=== PATIENT | male | born 1935 | race Caucasian/White ===

== ENCOUNTER → 2017-07-06 06:46 | Outpatient (CLI) | payer MEDICARE, SELFPAY ==
--- NOTE | 2017-07-06 10:18 | STRESSREP ---
Stress Test Report Date: 07/06/2017 Procedure: Pharmacologic stress nuclear imaging study Indications: CAD; status post CABG Consent: Per the patient Procedure: The patient underwent pharmacologic (Regadenoson (evaluation with a peak heart rate of 88 bpm (62% predicted maximal heart rate) with a peak blood pressure 128/70 mmHg. The baseline ECG demonstrated sinus bradycardia with nonspecific ST and T-wave abnormality. The peak pharmacologic ECG demonstrated no obvious ECG changes. There were no cardiac dysrhythmias pretest, during pharmacologic infusion, or recovery. The patient had no complaint of chest discomfort during pharmacologic infusion or recovery. The examination was discontinued secondary to completion of protocol. Impression: 1. Pharmacologic (Regadenoson) evaluation 2. Peak pharmacologic ECG with continued nonspecific ST and T-wave abnormality. 3. Nuclear images pending Myocardial perfusion imaging study: Technique: The patient was injected with 11.0 millicuries of technetium 99m Cardiolite and subsequently rest SPECT Cardiolite nuclear imaging was obtained in the horizontal long, vertical long, and short axis views. The patient underwent pharmacologic (Regadenoson (evaluation with a peak heart rate of 88 bpm (62% predicted maximal heart rate) with a peak blood pressure 128/70 mmHg. The patient was injected with 34.0 millicuries of technetium 99m Cardiolite and subsequently stress SPECT Cardiolite nuclear imaging was obtained in the horizontal long, vertical long, and short axis views. A gated Cardiolite study at peak stress was obtained. Interpretation: Rest and stress SPECT Cardiolite nuclear imaging status post realignment, normalization, and attenuation correction, demonstrates the appearance of extracardiac/hepatic and gastrointestinal tracer uptake near the inferior segments. Otherwise there appears to be relative uniform tracer uptake and myocardial perfusion appearing within normal limits. There is end systolic thickening and brightening. The gated Cardiolite study demonstrates myocardial thickening and inward wall motion. The reported LVEF is 71%. Impression: 1. Rest and stress SPECT Cardiolite nuclear imaging demonstrating relative uniform tracer uptake and myocardial perfusion appearing within normal limits. 2. The gated Cardiolite study reports an LVEF of 71%. This note was generated with [employer] software. Every effort was made to ensure accuracy, however, computerized eradicator mistakes may persist.
--- NOTE | 2017-07-06 10:28 | STRESSREP_ITS ---
Stress Test Report Date: 07/06/2017 Procedure: Pharmacologic stress nuclear imaging study Indications: CAD; status post CABG Consent: Per the patient Procedure: The patient underwent pharmacologic (Regadenoson (evaluation with a peak heart rate of 88 bpm (62% predicted maximal heart rate) with a peak blood pressure 128 /70 mmHg. The baseline ECG demonstrated sinus bradycardia with nonspecific ST and T-wave abnormality. The peak pharmacologic ECG demonstrated no obvious ECG changes. There were no cardiac dysrhythmias pretest, during pharmacologic infusion, or recovery. The patient had no complaint of chest discomfort during pharmacologic infusion or recovery. The examination was discontinued secondary to completion of protocol. Impression: 1. Pharmacologic (Regadenoson) evaluation 2. Peak pharmacologic ECG with continued nonspecific ST and T-wave abnormality. 3. Nuclear images pending Myocardial perfusion imaging study: Technique: The patient was injected with 11.0 millicuries of technetium 99m Cardiolite and subsequently rest SPECT Cardiolite nuclear imaging was obtained in the horizontal long, vertical long, and short axis views. The patient underwent pharmacologic (Regadenoson (evaluation with a peak heart rate of 88 bpm (62% predicted maximal heart rate) with a peak blood pressure 128/70 mmHg. The patient was injected with 34.0 millicuries of technetium 99m Cardiolite and subsequently stress SPECT Cardiolite nuclear imaging was obtained in the horizontal long, vertical long, and short axis views. A gated Cardiolite study at peak stress was obtained. Interpretation: Rest and stress SPECT Cardiolite nuclear imaging status post realignment, normalization, and attenuation correction, demonstrates the appearance of extracardiac/hepatic and gastrointestinal tracer uptake near the inferior segments. Otherwise there appears to be relative uniform tracer uptake and myocardial perfusion appearing within normal limits. There is end systolic thickening and brightening. The gated Cardiolite study demonstrates myocardial thickening and inward wall motion. The reported LVEF is 71%. Impression: 1. Rest and stress SPECT Cardiolite nuclear imaging demonstrating relative uniform tracer uptake and myocardial perfusion appearing within normal limits. 2. The gated Cardiolite study reports an LVEF of 71%. This note was generated with [employer] software. Every effort was made to ensure accuracy, however, computerized manufacturing production manager mistakes may persist.
== END ==
PROVIDERS: Family Provider Family Medicine; PCP Family Medicine; Visit Provider Physician Assistant Medical
DX: I25.10 Atherosclerotic heart disease of native coronary artery without angina pectoris (principal)
CPT/HCPCS: 78452; 93017; A9500; A4216; J2785

== ENCOUNTER → 2017-10-04 08:11 | Outpatient (CLI) | payer MEDICARE, SELFPAY ==
[2017-10-04 09:53] LABS: Absolute Lymphocyte Count 1.52 X10^3/ul (0.83-4.51); Absolute Neutrophil Count 3.3 X10^3/uL (2.0-7.7); Basophil# 0.07 X10^3/uL; Basophil% 1.3 % (0-1); Eosinophil# 0.25 X10^3/uL; Eosinophils% 4.5 % (0-5); Hematocrit 45.5 % (40-54); Hemoglobin 15.2 g/dl (13.0-16.5); Lymphocyte # 1.52 X10^3/ul (4.0); Lymphocyte % 27.6 % (19-41); Mean Corp Hgb Conc 33.4 g/gl (32-36); Mean Corpuscular Hgb 30.6 pg (27.0-32.0); Mean Corpuscular Volume 91.5 fL (80-94); Monocyte# 0.39 X10^3/uL; Monocyte% 7.1 % (0-10); Neutrophil # 3.27 X10^3/uL (2.7-7.7); Neutrophil % 59.5 % (47-70); Platelet Count 189 K/mm3 (150-450); RBC Distribution Width CV 13.6 % (11.6-14.6); RBC Distribution Width SD 44.9 fl (35.1-43.9); Red Blood Count 4.97 M/mm3 (4.6-6.2); White Blood Count 5.5 K/mm3 (4.4-11.0)
[2017-10-04 10:14] LABS: Anion Gap 7 (5-15); BUN 16 mg/dL (7-18); BUN/Creat Ratio 12.3 RATIO (10-20); Calcium,Total 8.6 mg/dL (8.5-10.1); Chloride 107 mmol/L (98-107); EST Glomerular Filtration Rate 56 mL/min (>60); Est Glom Filt Rate - Afr Amer 68 mL/min (>60); Glucose 97 mg/dL (74-106); POSITIVE COUNT NO; POSITIVE DIFFERENTIAL NO; POSITIVE MORPHOLOGY NO; Sodium Level 143 mmol/L (136-145)
[2017-10-04 10:16] LABS: AST(SGOT) 13 U/L (15-37); Alanine Aminotransfer ALT/SGPT 18 U/L (16-61); Albumin, Serum 3.5 g/dL (3.2-5.0); Alkaline Phosphatase 53 U/L (45-117); Bilirubin, Direct 0.09 mg/dL (0.00-0.30); Cholesterol 143 mg/dL (200); Globulin 3.1 g/dL (2.2-4.2); High Density Lipoprotein 51 mg/dL; Protein, Total 6.6 g/dL (6.4-8.2); Triglycerides 131 mg/dL; Very Low Density Lipoprotein 26 mg/dL (5-40)
== END ==
PROVIDERS: Internal Medicine Cardiovascular Disease; Family Provider Family Medicine; PCP Family Medicine; Visit Provider Family Medicine
DX: I25.10 Atherosclerotic heart disease of native coronary artery without angina pectoris (principal); I10 Essential (primary) hypertension; R25.2 Cramp and spasm; E78.5 Hyperlipidemia, unspecified; Z79.899 Other long term (current) drug therapy
CPT/HCPCS: 36415; 80048; 80061; 80076; 85025

== ENCOUNTER → 2018-04-05 08:22 | Outpatient (CLI) | payer MEDICARE, SELFPAY ==
[2018-04-05 10:44] LABS: AST(SGOT) 14 U/L (15-37); Alanine Aminotransfer ALT/SGPT 21 U/L (16-61); Albumin, Serum 3.4 g/dL (3.2-5.0); Alkaline Phosphatase 54 U/L (45-117); Bilirubin, Direct 0.07 mg/dL (0.00-0.30); Cholesterol 146 mg/dL (200); Globulin 3.2 g/dL (2.2-4.2); High Density Lipoprotein 52 mg/dL; Protein, Total 6.6 g/dL (6.4-8.2); Triglycerides 94 mg/dL; Very Low Density Lipoprotein 19 mg/dL (5-40)
== END ==
PROVIDERS: Family Provider Family Medicine; PCP Family Medicine; Referring Provider Internal Medicine Cardiovascular Disease; Visit Provider Internal Medicine Cardiovascular Disease
DX: E78.5 Hyperlipidemia, unspecified (principal); E78.00 Pure hypercholesterolemia, unspecified
CPT/HCPCS: 36415; 80061; 80076

== ENCOUNTER → 2018-04-07 07:46 | Outpatient (CLI) | payer MEDICARE, SELFPAY ==
--- NOTE | 2018-04-07 07:48 | ECHOCS_ITS ---
Reason For Study: CAD/ASJD Procedure This was a 2D Doppler, Color Flow transthoracic echocardiogram. The study was technically difficult. Contrast injection was performed. Exam performed in department. Left Ventricle Normal LV size. Left ventricular systolic function is normal. The estimated ejection fraction is 65 %. No evidence for diastolic dysfunction. No regional wall motion abnormalities noted. Right Ventricle Normal RV size. Normal systolic function. Atria The left atrium is mildly enlarged. Normal right atrium. Positive agitated saline contrast study for a right to left interatrial shunt c/w a PFO vs. ASD. Mitral Valve There is mild mitral annular calcification. Normal mitral valve. Mild (1+) mitral valve insufficiency. Tricuspid Valve Normal tricuspid valve. Mild tricuspid valve insufficiency. Right ventricular systolic pressure estimated to be 23 mmHg. Aortic Valve Trisinus/trileaflet aortic valve. Moderate focal aortic valve calcification. Trivial aortic valve insufficiency. Pulmonic Valve The pulmonic valve is not well visualized. Trivial pulmonic valve insufficiency. Great Vessels Normal sized aortic root. Pericardium/Pleural No pericardial effusion. Medication 22 gauge I.V. with prn adaptor inserted into right arm. Performed a rapid injection of agitated mix of 9 cc saline and 1cc air to assess for atrial septal defect. Diluted definity 2.0ml given slow IV push to enhance endocardial definition. MMode/2D Measurements & Calculations LVIDd: 4.0 cm IVSd: 1.5 cm LVOT diam: 2.5 cm LVIDs: 2.7 cm LVPWd: 1.2 cm LVOT area: 5.1 cm2 RVDd: 3.9 cm FS: 31.6 % Ao root diam: 3.5 cm LAV(MOD-bp): 67.7 ml LA A4 area: 21.5 cm2 LAV(MOD-bp) Indexed: 32.0 ml/m2 LAV(MOD-sp2): 69.6 ml LAV(MOD-sp4): 64.7 ml LA dimension(2D): 4.1 cm RA A4 area: 16.0 cm2 Time Measurements MV dec time: 0.26 sec Doppler Measurements & Calculations MV E max misbah: 62.6 cm/sec Lat Peak E' Misbah: 8.9 cm/sec Med Peak E' Misbah: 6.4 cm/sec MV A max misbah: 106.3 cm/sec E/E' lat: 7.0 E/E' med: 9.8 MV E/A: 0.59 Ao V2 max: 211.0 cm/sec LV V1 max: 111.0 cm/sec SV(LVOT): 113.5 ml Ao max P.8 mmHg LV V1 max P.9 mmHg Ao V2 mean: 133.2 cm/sec LV V1 mean P.7 mmHg Ao mean P.1 mmHg LV V1 mean: 78.3 cm/sec Ao V2 VTI: 38.5 cm LV V1 VTI: 22.4 cm PAOLO(I,D): 2.9 cm2 PAOLO(V,D): 2.7 cm2 PA V2 max: 112.8 cm/sec PI end-d misbah: 111.9 cm/sec TR max misbah: 222.9 cm/sec TR max P.9 mmHg Interpretation Summary The study was technically difficult. Contrast injection was performed. Left ventricular systolic function is normal. The estimated ejection fraction is 65 %. The left atrium is mildly enlarged. There is mild mitral annular calcification. Mild (1+) mitral valve insufficiency. Mild tricuspid valve insufficiency. Moderate focal aortic valve calcification. Trivial aortic valve insufficiency. Trivial pulmonic valve insufficiency. Right ventricular systolic pressure estimated to be 23 mmHg. No evidence for diastolic dysfunction. Positive agitated saline contrast study for a right to left interatrial shunt c/w a PFO vs. ASD. Ordering Physician: William Alvarez Referring Physician: Jose Fitzgerald Performed By: Tosin Cruz, RDCS, RVT
== END ==
PROVIDERS: Family Provider Family Medicine; PCP Family Medicine; Referring Provider Internal Medicine Cardiovascular Disease; Visit Provider Internal Medicine Cardiovascular Disease
DX: Z95.1 Presence of aortocoronary bypass graft (principal); I34.0 Nonrheumatic mitral (valve) insufficiency; E78.00 Pure hypercholesterolemia, unspecified; I49.1 Atrial premature depolarization; I49.3 Ventricular premature depolarization; I25.10 Atherosclerotic heart disease of native coronary artery without angina pectoris
CPT/HCPCS: 93225; 93226; 93306; Q9957; A4216; C8929

== ENCOUNTER → 2018-04-26 11:30 | Outpatient (CLI) | payer MEDICARE, SELFPAY ==
--- NOTE | 2018-04-26 13:09 | STRESSREP ---
Stress Test Report Date: 06/26/2017 Procedure: Exercise tolerance test Indications: Shortness of breath/dyspnea on exertion; paroxysmal atrial fibrillation; CAD; CABG; conduction system abnormality Consent: Per the patient Procedure: The patient exercised on a [place] protocol for 5 minutes completing Stage I and 2 minutes of Stage II achieving a peak heart rate of 139 bpm (100 % predicted maximal heart rate) with a peak blood pressure 192/60 mmHg and a peak MET capacity of approximately 7 MET's. The baseline ECG demonstrated sinus bradycardia; nonspecific ST and T wave abnormality. The peak exercise ECG demonstrated approximately [address] segment depression in leads II, III, and aVF and approximately 1-[address] segment depression in leads V4 through V6 with gradual resolution towards baseline in recovery. There were rare PVCs during exercise and recovery and rare ventricular couplets during exercise. The functional capacity was considered average. The patient had no complaint of chest discomfort during exercise or recovery. The examination was discontinued secondary to dyspnea. Impression: 1. Technically adequate (percent predicted maximal heart rate greater than 85%) exercise tolerance test 2. Peak exercise ECG with approximately [address] segment depression in leads II, III, and aVF and approximately 1-[address] segment depression in leads V4 through V6 with gradual resolution towards baseline in recovery 3. There were rare PVCs during exercise and recovery and rare ventricular couplets during exercise This note was generated with [employer] software. It may contain incorrect words, spelling, and punctuation that were not noted in checking the note before signing.
--- OUTSIDE RECORDS SUMMARY | 2018-06-08 03:24 | XMS RPT_ITS ---
:1935 Author Organization OHIP Support Name Relationship Address Phone DANIELLE JJA Unavailable [facility] [address] + [place] [address] JJ, BILL Unavailable Unavailable + [place] [address] R Unavailable Unavailable Unavailable JJ, SANTI Unavailable [facility] [address] + [place] [address] JJ, BILL Unavailable . + [place] [address] R Unavailable Unavailable Unavailable JJ, SANTI Unavailable [facility] [address] + [place] [address] JJ, BILL Unavailable Unavailable + [place] [address] R Unavailable Unavailable Unavailable JJ, SANTI Unavailable [facility] [address] + [place] [address] JJ, BILL Unavailable Unavailable + [place] [address] R Unavailable Unavailable Unavailable JJ, SANTI Unavailable [facility] [address] + [place] [address] JJ, BILL Unavailable NA + [place], [place] R Unavailable Unavailable Unavailable JJ, SANTI Unavailable [facility] [address] + [place] [address] JJ, BILL Unavailable Unavailable + [place] [address] R Unavailable Unavailable Unavailable JJ, SANTI Unavailable [facility] [address] + [place] [address] JJ, BILL Unavailable NA + [place], [place] R Unavailable Unavailable Unavailable JJ, SANTI Unavailable [facility] [address] + [place] [address] JJ, BILL Unavailable NA + [place], [place] R Unavailable Unavailable Unavailable JJ, SANTI Unavailable [facility] [address] + [place] [address] JJ, BILL Unavailable NA + [place], [place] R Unavailable Unavailable Unavailable JJ, SANTI Unavailable [facility] + [place] [address] JJ, BILL Unavailable NA + [place], [place] R Unavailable Unavailable Unavailable JJ, SANTI Unavailable [facility] + [place] [address] R Unavailable Unavailable Unavailable JJ, SANTI Unavailable [facility] + [place] [address] R Unavailable Unavailable Unavailable JJ, SANTI Unavailable NA + [place], [place] R Unavailable Unavailable Unavailable JJ, SANTI Unavailable [facility] + [place] [address] R Unavailable Unavailable Unavailable Care Team Providers Name Role Phone William Alvarez Attending Unavailable MoodispaWilliam phillips Referring Unavailable Lia, Jose Attending Unavailable Lia, Jose Primary Care Unavailable Moodgriselda, William Referring Unavailable Rafael Dent Attending Unavailable Lia, Jose Primary Care Unavailable Mandie Riley Attending Unavailable Lia, Jose Referring Unavailable Lia, Jose Primary Care Unavailable Mandie Riley Attending Unavailable Mandie Riley Referring Unavailable Lia, Jose Primary Care Unavailable Moodispaalan, William Attending Unavailable Mandie Riley Referring Unavailable MillerMandie hicks Attending Unavailable MoodispaWilliam phillips Attending Unavailable Lia, Jose Referring Unavailable Moodispaalan, William Attending Unavailable MoodispaWilliam phillips Referring Unavailable Lia, Jose Primary Care Unavailable Moodisaimee, William Attending Unavailable Moodispaalna, William Referring Unavailable Lia, Jose Primary Care Unavailable MoodisWilliam yu Attending Unavailable Moodispaalan, William Referring Unavailable Lia, Jose Primary Care Unavailable William Alvarez Attending Unavailable Moodisaimee, William Referring Unavailable Moodispaalan, William Attending Unavailable Moodispaalan, William Referring Unavailable Lia, Jose Primary Care Unavailable Guanako Olivera Attending Unavailable Lia, Jose Referring Unavailable PROBLEMS PROBLEMS DATE TYPE CONDITION / CODE ATTENDING STATUS SOURCE Unknown I25.10 - Atherosclerotic [place], Active [place] heart disease of [facility] coronary artery without Hospital angina pectoris / Repository I25.10(ICD-10) Unknown Z95.1 - Presence of [place], Active [place] aortocoronary bypass [facility] graft / Z95.1(ICD-10) Hospital Repository Unknown R06.00 - Dyspnea, [place], Active [place] unspecified / [facility] R06.00(ICD-10) Hospital Repository Unknown R53.83 - Other fatigue / [place], Active [place] [facility] R53.83(ICD-10) [facility] Hospital Repository Unknown I48.0 - Paroxysmal atrial [place], Active [place] fibrillation / [facility] I48.0(ICD-10) Hospital Repository Unknown I34.0 - Nonrheumatic [place], Active [place] mitral (valve) [facility] insufficiency / Hospital I34.0(ICD-10) Repository Unknown E78.00 - Pure [place], Active [place] hypercholesterolemia, [facility] unspecified / Hospital E78.00(ICD-10) Repository Unknown E78.0 - Pure [place], Active [place] 8 hypercholesterolemia / [facility] E78.0(ICD-10) Hospital Repository Unknown I49.1 - Atrial premature [place], Active [place] [facility] depolarization / [facility] I49.1(ICD-10) Hospital Repository Unknown I49.3 - Ventricular [place], Active [place] premature depolarization [facility] / I49.3(ICD-10) Hospital Repository Unknown R00.1 - Bradycardia, [place], Active [place] [facility] unspecified / [facility] R00.1(ICD-10) Hospital Repository Unknown I10 - Essential (primary) Jose Fitzgerald Active [place] hypertension / Community I10(ICD-10) Hospital Repository Unknown R25.2 - Cramp and spasm / Jose Fitzgerald Active [place] R25.2(ICD-10) [facility] Repository Unknown E78.5 - Hyperlipidemia, LiaJose granado Active [place] unspecified / Community E78.5(ICD-10) Hospital Repository Unknown Z79.899 - Other custodial Jose Fitzgerald Active [place] (current) drug therapy / Community Z79.899(ICD-10) Hospital Repository Unknown Z85.51 - Personal history Rafael Dent Active [place] 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 [place] [address] OFFICE VISIT Date of Service: 05/05/18 MR#: [id number] Acct: [id number] Name: SHAZIA JJ Rep #: [id number] : 1935 Provider: RADHA Olivera Age/Sex: 82/M Location: [facility] [place] Status: Signed HPI HPI Details: SHAZIA JJ, is a 82 M who presents to the office today for a cardiovascular outpatient follow-up regarding updating H AND P. He has a history of coronary artery disease status post bypass surgery x5 in March 2004 with an SUN in sequence to diagonal and LAD, SVG to RCA x2, and SVG to LCx. He also has a history of PACs/PVCs, sinus bradycardia, paroxysmal atrial fibrillation, mitral valve regurgitation, patent murray ovale status post closure in July 2003, hypertension, and hyperlipidemia. After last office visit he underwent an echocardiogram, 24- hour Holter monitor, and stress test. His stress test showed ST segment depression in leads II, III, and aVF and approximately 1-[address] segment depression in leads V4 through V6 with gradual resolution towards baseline in recovery. Based on his stress test result and ongoing dyspnea, he will undergo heart catheterization for further evaluation. Pt denies chest, arm, jaw, or neck discomfort. His exercise tolerance is stable. Pt denies symptoms of palpitations, lightheadedness, dizziness, near syncopal or syncopal episodes. Pt denies edema or claudication issues. Pt. denies orthopnea, PND, fever, chills, blood in urine, blood in stool, or myalgia. He continues with exertion and fatigue. This has not worsened since last office visit. Intake Vital Signs05/05/18 Height 5 ft 11 in 05/05/18 Weight: 200 lb 05/05/18 Body Mass Index (BMI) 27.8 05/05/18 Blood Pressure 108/64 Intake Visit Reasons: update H AND P Well Driller Required: No Accompanied by: None Is patient in pain?: No Allergies No Known Allergies Allergy (Verified 05/05/18 10:17) Medications aspirin 81 mg tablet,delayed release 81 mg PO QDAY 06/17/17 [History Confirmed 05/05/18] finasteride 5 mg tablet 5 mg PO QDAY 06/17/17 [History Confirmed 05/05/18] fluticasone 250 mcg-salmeterol 50 mcg/dose blistr powdr for inhalation 1 inh INHALATION BID ea 06/17/17 [History Confirmed 05/05/18] nitroglycerin 0.4 mg sublingual tablet 0.4 mg SUBLINGUAL Q5M PRN 06/17/17 [History Confirmed 05/05/18] hydrochlorothiazide 25 mg tablet 25 mg PO QDAY #90 tab 04/04/18 [Rx Confirmed 05/05/18] isosorbide mononitrate ER 60 mg tablet,extended release 24 hr 60 mg PO QDAY #90 tab 04/04/18 [Rx Confirmed 05/05/18] losartan 50 mg tablet 50 mg PO QDAY #90 tab 04/04/18 [Rx Confirmed 05/05/18] clopidogrel 75 mg tablet 75 mg PO DAILY #30 tab 05/05/18 [Rx Confirmed 05/05/18] gabapentin 300 mg capsule 300 mg PO BID cap 05/05/18 [History Confirmed 05/05/18] pravastatin 20 mg tablet 20 mg PO QHS tab 05/05/18 [History] Ejection fraction %: 65 to 70 PFSH Medical History Second degree AV block, Mobitz type I (Acute) Non-rheumatic mitral regurgitation (Chronic) Sinus bradycardia (Acute) Premature ventricular contraction (Acute) Premature atrial contractions (Acute) Paroxysmal atrial fibrillation (Acute) Atherosclerotic heart disease of [place] coronary artery without angina pectoris (Acute) Patent foramen ovale (Chronic) Hyperlipidemia (Chronic) Essential hypertension (Chronic) Hx pulmonary embolism (Resolved) CAD (coronary artery disease) (Inactive) Mitral valve regurgitation (Inactive) Surgical History History of coronary artery bypass surgery (Resolved 07/03/03) History of bladder surgery (Resolved 2011) History of transurethral resection of prostate (Resolved 1981) History of cholecystectomy (Resolved) Status post patent foramen ovale closure (Resolved 07/03/03) S/P CABG (coronary artery bypass graft) (Inactive 2003) Family History Father CVA (cerebral vascular accident) Mother Heart failure Brother Myocardial infarction Brother Cancer Sister Heart disease CAD (coronary artery disease) Daughter Breast cancer Social History Smoking Status: Former smoker how long ago did patient quit smokin years ago alcohol intake: never substance use type: does not use caffeine: Yes Type: coffee Number of servings: 3 what type of physical activity do you participate in: none seatbelt use: always do you feel safe at home: Yes ROS Const Const: Positive for fatigue; negative for weakness, body ache, fever(s) or chills ENT ENT: Negative for dizziness Cardio Chest Pain: No Palpitations: No Edema: None Muscle aches with walking: None Resp Respiratory: Positive for SOB with activity; negative for SOB at rest, SOB orthopnea\SOB lying down or paroxysmal nocturnal dyspnea GI GI: Negative nausea, black,tarry stools, bright, red blood in stools or vomiting blood/hematemesis : Negative for hematuria or frequent nighttime urination/ nocturia Musc Musc: Negative for muscle aches/ myalgia Skin Skin: Negative non-healing lesions or rash Neuro Neuro: Negative for weakness, dizziness, lightheadedness, near syncope, syncope or orthostatic symptoms Endo Endo: Positive for fatigue Allergy Allergy/Immunology: Negative for rash Cardiology Exam Const Appearance: cooperative, well developed, healthy appearing, comfortable, well groomed and no acute distress Nutritional Appearance: overweight and well nourished Orientation: alert, awake and oriented x3 Head Head: normocephalic, atraumatic and normal to inspection Ears: hearing grossly normal bilaterally Nose: external nose normal Mouth: moist mucous membranes and oral mucosae normal Eyes Eyelids: eyelids normal Conjunctivae: conjunctivae normal Pupils: PERRL EOM: EOM intact bilaterally Neck Neck: normal visual inspection, no JVD and full ROM Carotids: Negative bruit Neck Mass: Negative Neck mass Chest Chest inspection: normal inspection of the chest, symmetric chest movement and normal respiratory effort Auscultation: Bilateral: Clear to Auscultation Cardio Palpation: normal PMI Rate: regular rate Rhythm: regular rhythm Heart sounds: S1 normal and S2 normal; negative rub, gallop or murmur GI GI: normal to inspection, soft and bowel sounds present; negative tender Neuro General: alert, awake, oriented x3, moves all extremities, gait normal, no focal sensory deficit and no focal motor deficits Skin Skin: no rashes or lesions noted Extremities Pulses: Normal: Right Posterior Tibial Pulse, Left Posterior Tibial Pulse, Right Radial Pulse, Left Radial Pulse Lower Extremity Edema: None: Bilateral Psych Psychological: normal affect Supplemental Info Transthoracic echocardiogram: 04/07/2018 Interpretation Summary The study was technically difficult. Contrast injection was performed. Left ventricular systolic function is normal. The estimated ejection fraction is 65 %. The left atrium is mildly enlarged. There is mild mitral annular calcification. Mild (1+) mitral valve insufficiency. Mild tricuspid valve insufficiency. Moderate focal aortic valve calcification. Trivial aortic valve insufficiency. Trivial pulmonic valve insufficiency. Right ventricular systolic pressure estimated to be 23 mmHg. No evidence for diastolic dysfunction. Positive agitated saline contrast study for a right to left interatrial shunt c/w a PFO vs. ASD. Stress Test Report: 04/26/2018 Procedure: Exercise tolerance test Indications: Shortness of breath/dyspnea on exertion; paroxysmal atrial fibrillation; CAD; CABG; conduction system abnormality Consent: Per the patient Procedure: The patient exercised on a [place] protocol for 5 minutes completing Stage I and 2 minutes of Stage II achieving a peak heart rate of 139 bpm (100 % predicted maximal heart rate) with a peak blood pressure 192/60 mmHg and a peak MET capacity of approximately 7 MET's. The baseline ECG demonstrated sinus bradycardia; nonspecific ST and T wave abnormality. The peak exercise ECG demonstrated approximately [address] segment depression in leads II, III, and aVF and approximately 1-[address] segment depression in leads V4 through V6 with gradual resolution towards baseline in recovery. There were rare PVCs during exercise and recovery and rare ventricular couplets during exercise. The functional capacity was considered average. The patient had no complaint of chest discomfort during exercise or recovery. The examination was discontinued secondary to dyspnea. Impression: 1. Technically adequate (percent predicted maximal heart rate greater than 85%) exercise tolerance test 2. Peak exercise ECG with approximately [address] segment depression in leads II, III, and aVF and approximately 1-[address] segment depression in leads V4 through V6 with gradual resolution towards baseline in recovery 3. There were rare PVCs during exercise and recovery and rare ventricular couplets during exercise Cardiac cath: 09/27/2012 catheter-based diagnostic or therapeutic intervention especially of the [place] LCx/OM system. Final impression: 1. Mild elevation left ventricular end diastolic pressure 2. Left ventricle: A. Normal left ventricular size, wall motion, and systolic function B. Estimated LVEF 65% 3. Left main coronary: t . Angiographically normal 4. Left anterior descending coronary artery: A. Septal bait tier #1 with ostial 85% stenosis B. Septal bait tier #2 with ostial 85% stenosis C. The 2nd diagonal branch with proximal 25% stenosis D. Mid LAD 1.00% occluded Remainder of the LAD filling from the SUN graft with minimal luminal irregularities 3rd diagonal branch filling from the SUN graft with minimal luminal irregularities Left circumflex coronary: A. ProximaHy 100% occluded B. Bifurcating OM system filling from left left collateral flow and providing retrograde flow into the SVG graft Right coronary artery: A. 100% occluded B. Right PDA, right AV segment, right posterior lateral branching system filling from the SVG graft SUN to the LAD: A. Patent with no angiographically significant appearing stenosis SVG to the LCx/OM system: A. Proximally 100% occluded B. Distal portion filling from retrograde flow from the [place] bifurcating OM system SVG to the RCA system: A. Patent with no angiographically significant appearing disease 10. Mitral valve: A. Mild scalloping compatible with mild mitral valve prolapse Open heart surgery: 07/03/2003: [facility]: SUN to the diagonal branch sequencing to the LAD, SVG to the LCx, SVG to the RCA x2, closure of patent foramen ovale Holter monitor: 04/07/2018 Showed sinus rhythm with periods of sinus arrhythmia, first- degree AV block, and second to AV block Mobitz 1 and nonconductive PACs, minimum heart rate of 36 bpm, maximum heart of 106 bpm, and average heart rate of 62 bpm, rare PACs and no runs noted, isolated PVCs and no runs noted, patient did not report any symptoms. Assessment AND Plan 1. History of coronary artery bypass surgery Z95.1 CABG x5- SUN in sequence to Diagonal and LAD, SVG to RCA x2, and SVG to CX 07/03/03 Plan Patient's most recent stress test showed ST segment depression in leads II, III, and aVF and approximately 1-[address] segment depression in leads V4 through V6 with gradual resolution towards baseline in recovery. He will undergo further evaluation with a left heart catheterization in the setting of a history of CABG x5. Further recommendation will be made based on results of heart catheterization. He was asked to start Plavix therapy. He will begin with a loading dose of 300 mg of today and maintenance dose of 75 mg on day 2 and forward. Based on the results of his heart catheterization further guidance for long-term duration will be made. 2. Premature atrial contractions I49.1 Plan His 24-hour Holter monitor from March 2018 showed rare PACs with no runs noted and nonconductive PACs. At this time we will continue current medication we will continue to monitor. 3. Premature ventricular contraction I49.3 Plan His 24-hour Holter monitor from March 2018 showed isolated PVCs and no runs. He will continue with current medication and we will continue to monitor. 4. Sinus bradycardia R00.1 Plan His Holter monitor from March 2018 showed an average heart rate of 62 bpm. Because of this, he is not on any rate limiting medication. At this time we will continue to monitor. 5. Paroxysmal atrial fibrillation I48.0 Plan His 24-hour Holter monitor from March 2018 did not reveal any episodes of paroxysmal atrial fibrillation. His echocardiogram in March 2018 showed mildly enlarged left atrium. His heart rate is well-controlled today in office. We will continue to monitor. 6. Patent foramen ovale Q21.1 Closure 07/03/03 Plan His most recent echocardiogram from March 2018 showed positive agitated saline contrast study for right to left interatrial shunt consistent with a PFO versus ASD. This does not appear to be causing cardiac compromise. Thus, he will continue current medications and we will continue to monitor. 7. Non-rheumatic mitral regurgitation I34.0 Plan His echocardiogram in March 2018 showed ejection fraction of 65% and mild mitral valve insufficiency. At this time he will continue current medications and we will continue to monitor. 8. Essential hypertension I10 Plan Patient's blood pressure is well-controlled today in the office. We will continue to monitor this. We will not make any medication regimen changes. 9. Pure hypercholesterolemia E78.00 Plan Lipid panel from March 2018 showed cholesterol: 146, HDL: 52, LDL: 75, and triglycerides: 94. He will continue with current statin medication and we will continue to monitor. Plan Detail Other Medications New: Refilled: Additional Comments Thank you for allowing us to participate in the patient's plan of care, if you have any questions please do not hesitate to call. This note was generated using a voice recognition system and there may be incorrect words, spelling, or punctuation that were not noted upon reviewing the office note prior to saving. Coding Level of Care Code Off vis,est,level 3 Diagnoses History of coronary artery bypass surgery Z95.1 Premature atrial contractions I49.1 Premature ventricular contraction I49.3 Sinus bradycardia R00.1 Paroxysmal atrial fibrillation I48.0 Patent foramen ovale Q21.1 Non-rheumatic mitral regurgitation I34.0 Essential hypertension I10 Pure hypercholesterolemia E78.00 Hyperlipidemia type: pure hypercholesterolemia Coding Level of Care Code Off vis,est,level 3 Diagnoses History of coronary artery bypass surgery Z95.1 Premature atrial contractions I49.1 Premature ventricular contraction I49.3 Sinus bradycardia R00.1 Paroxysmal atrial fibrillation I48.0 Patent foramen ovale Q21.1 Non-rheumatic mitral regurgitation I34.0 Essential hypertension I10 Pure hypercholesterolemia E78.00 Hyperlipidemia type: pure hypercholesterolemia 05/05/18 1318 <Electronically signed by Guanaok MARKS> Date Guanako MARKS Cosigner Signature: Date (if applicable) CC: Jose Fitzgerald DO CBC-COMPLETE BLOOD CNT Collected: 05/05/2018 Status: F Source: [place] NO DIFF 11:23 AM [facility] [place] REPOSITORY TYPE CODE TESTS RESULT OUT OF RANGE REFERENCE UNITS LAB L100.1000 4.4-11.0 K/mm3 Normal WBC 6.7 LAB L100.1200 4.6-6.2 M/mm3 Normal RBC 5.14 LAB L100.1300 13.0-16.5 g/dl Normal HGB 15.4 LAB L100.1400 40-54 % Normal HCT 47.5 LAB L100.1500 80-94 fL Normal MCV 92.4 LAB L100.1600 27.0-32.0 pg Normal MCH 30.0 LAB L100.1700 32-36 g/gl Normal MCHC 32.4 LAB L100.1810 11.6-14.6 % Normal RDW CV 13.4 LAB L100.1820 35.1-43.9 fl High RDW SD 45.3 LAB L100.1900 150-450 K/mm3 Normal PLT 209 LAB L100.2000 6.2-12.0 fl Normal MPV 10.6 Performed By: #### L100.0500 #### [facility] [address] [place], [address] PROTHROMBIN TIME W/INR Collected: 05/05/2018 Status: F Source: [place] 11:20 AM [facility] [place] REPOSITORY TYPE CODE TESTS RESULT OUT OF RANGE REFERENCE UNITS LAB L300.4150 11.7-14.9 SECONDS Normal PROTIME 14.1 LAB L300.4200 Normal INR 1.1 Performed By: #### L300.3900, L300.4310 #### [facility] [address] [place], [address] PARTIAL THROMBOPLAST Collected: 05/05/2018 Status: F Source: [place] TIME 11:20 AM [facility] [place] REPOSITORY TYPE CODE TESTS RESULT OUT OF RANGE REFERENCE UNITS LAB L300.4310 24.1-36.2 Seconds Normal PTT 33.7 Performed By: #### L300.3900, L300.4310 #### [facility] [address] [place], [place], [address] BASIC METABOLIC Collected: 05/05/2018 Status: F Source: [place] PROFILE (BMP) 11:20 AM [facility] [place] REPOSITORY TYPE CODE TESTS RESULT OUT OF RANGE REFERENCE UNITS LAB L501.0100 74-106 mg/dL Normal GLU 93 Result Comment: Please note revised GLUCOSE reference range effective 2017. LAB L501.1000 7-18 mg/dL High BUN 19 LAB L501.1100 0.70-1.30 mg/dL Normal CREAT,SERUM 1.24 Result Comment: The validity of the calculated GFR AND GFRAA in patients over 70 years has not been determined. Clinical correlation is essential. LAB L501.1110 >60 mL/min Low EST GFR 59 Result Comment: Non- GFR Calc LAB L501.1115 >60 mL/min Normal EST GFR - AA 72 Result Comment: GFR Calc LAB L501.1300 10-20 RATIO Normal BUN/CRE 15.3 LAB L501.2200 8.5-10.1 mg/dL CA Normal 8.8 LAB L501.5300 136-145 mmol/L NA Normal 141 LAB L501.5600 3.5-5.1 mmol/L K Normal 3.8 LAB L501.5900 98-107 mmol/L CL Normal 104 LAB L501.6100 21.0-32.0 mmol/L Normal CO2 30.0 LAB L501.6200 5-15 Normal GAP 7 Performed By: #### L500.2500 #### [facility] [address] [facility] [place], [address] CHEST PA AND LATERAL Observed: 05/05/2018 Status: F Source: [place] 10:56 AM [facility] [place] REPOSITORY [facility] Imaging Services [address] [place] [address] Chest PA and Lateral MR#: [id number] Acct: [id number] Name: SHAZIA JJ Rep #: [id number] : 1935 M 82 From: Hawk Abbott MD PCP: Jose Fitzgerald DO [place] [facility] [place]: Chest PA and Lateral Date of Exam: 05/05/18 Exam# [id number] Ordering Dr: William Alvarez MD STUDY: X-RAY CHEST REASON FOR EXAM: Male, 82 years old. Preheart catheter TECHNIQUE: Frontal and lateral views of the chest. COMPARISON: None. FINDINGS: Median sternotomy wires and CABG clips and markers. The lungs are clear and expanded. There is no demonstrated pleural abnormality. Normal size heart. Normal mediastinum and ray. Normal visualized pulmonary arteries. Normal visualized aortic arch and descending thoracic aorta. Normal visualized thoracic spine. Infarct versus enchondroma in the left humerus. There is no demonstrated abnormality of the visualized soft tissue structures of the upper abdomen. RAD/Chest PA and Lateral IMPRESSION: No acute pulmonary findings. Electronically Signed: Hawk Abbott MD at 8:40 EST Tel , Service support , CC: Jose Fitzgerald DO; William Alvarez MD Vocational Education Teacher: Signed STRESS REPORT Observed: 04/26/2018 Status: F Source: [place] 1:12 PM [facility] [place] REPOSITORY [facility] Cardiovascular Services [address] [place] [address]458 MR#: [id number] Acct: [id number] Name: SHAZIA JJ Rep #: [id number] : 1935 82 From: William Alvarez MD Primary Care: Jose Fitzgerald DO Status: REG CLI Ordering Dr: Indra Barton Stress Test Report Date: 06/26/2017 Procedure: Exercise tolerance test Indications: Shortness of breath/dyspnea on exertion; paroxysmal atrial fibrillation; CAD; CABG; conduction system abnormality Consent: Per the patient Procedure: The patient exercised on a [place] protocol for 5 minutes completing Stage I and 2 minutes of Stage II achieving a peak heart rate of 139 bpm (100 % predicted maximal heart rate) with a peak blood pressure 192/60 mmHg and a peak MET capacity of approximately 7 MET's. The baseline ECG demonstrated sinus bradycardia; nonspecific ST and T wave abnormality. The peak exercise ECG demonstrated approximately [address] segment depression in leads II, III, and aVF and approximately 1-[address] segment depression in leads V4 through V6 with gradual resolution towards baseline in recovery. There were rare PVCs during exercise and recovery and rare ventricular couplets during exercise. The functional capacity was considered average. The patient had no complaint of chest discomfort during exercise or recovery. The examination was discontinued secondary to dyspnea. Impression: 1. Technically adequate (percent predicted maximal heart rate greater than 85%) exercise tolerance test 2. Peak exercise ECG with approximately [address] segment depression in leads II, III, and aVF and approximately 1-[address] segment depression in leads V4 through V6 with gradual resolution towards baseline in recovery 3. There were rare PVCs during exercise and recovery and rare ventricular couplets during exercise This note was generated with [employer] software. It may contain incorrect words, spelling, and punctuation that were not noted in checking the note before signing. 04/26/18 1312 <Electronically signed by William Alvarez MD> Date William Alvarez MD CC: Jose Fitzgerald DO; William Alvarez MD Date Dictated: 04/26/18 1309 Date Transcribed: 04/26/181308 Vocational Education Teacher: PM Signed ECHO, COMPLETE W/ Observed: 04/07/2018 Status: F Source: [place] CONTRAST 10:05 PM [facility] [place] REPOSITORY [facility] Cardiovascular Services [address] [place] [address] Echo Complete W/ Contrast 04/07/18 0751 MR#: [id number] Acct: [id number] Name: SHAZIA JJ Rep #: [id number] : 1935 82 From: William Alvarez MD Attending Dr: William Alvarez MD Status: REG CLI Ordering Dr: William Alvarez MD Date: 04/07/18 Location: [facility] Sex: M C Admitted: Reason For Study: CAD/ASJD Procedure This was a 2D Doppler, Color Flow transthoracic echocardiogram. The study was technically difficult. Contrast injection was performed. Exam performed in department. Left Ventricle Normal LV size. Left ventricular systolic function is normal. The estimated ejection fraction is 65 %. No evidence for diastolic dysfunction. No regional wall motion abnormalities noted. Right Ventricle Normal RV size. Normal systolic function. Atria The left atrium is mildly enlarged. Normal right atrium. Positive agitated saline contrast study for a right to left interatrial shunt c/w a PFO vs. ASD. Mitral Valve There is mild mitral annular calcification. Normal mitral valve. Mild (1+) mitral valve insufficiency. Tricuspid Valve Normal tricuspid valve. Mild tricuspid valve insufficiency. Right ventricular systolic pressure estimated to be 23 mmHg. Aortic Valve Trisinus/trileaflet aortic valve. Moderate focal aortic valve calcification. Trivial aortic valve insufficiency. Pulmonic Valve The pulmonic valve is not well visualized. Trivial pulmonic valve insufficiency. Great Vessels Normal sized aortic root. Pericardium/Pleural No pericardial effusion. Medication 22 gauge I.V. with prn adaptor inserted into right arm. Performed a rapid injection of agitated mix of 9 cc saline and 1cc air to assess for atrial septal defect. Diluted definity 2.0ml given slow IV push to enhance endocardial definition. MMode/2D Measurements AND Calculations LVIDd: 4.0 cm IVSd: 1.5 cm LVOT diam: 2.5 cm LVIDs: 2.7 cm LVPWd: 1.2 cm LVOT area: 5.1 cm2 RVDd: 3.9 cm FS: 31.6 % Ao root diam: 3.5 cm LAV(MOD-bp): 67.7 ml LA A4 area: 21.5 cm2 LAV(MOD-bp) Indexed: 32.0 ml/m2 LAV(MOD-sp2): 69.6 ml LAV(MOD-sp4): 64.7 ml LA dimension(2D): 4.1 cm RA A4 area: 16.0 cm2 Time Measurements MV dec time: 0.26 sec Doppler Measurements AND Calculations MV E max misbah: 62.6 cm/sec Lat Peak E' Misbah: 8.9 cm/sec Med Peak E' Misbah: 6.4 cm/sec MV A max misbah: 106.3 cm/sec E/E' lat: 7.0 E/E' med: 9.8 MV E/A: 0.59 Ao V2 max: 211.0 cm/sec LV V1 max: 111.0 cm/sec SV(LVOT): 113.5 ml Ao max P.8 mmHg LV V1 max P.9 mmHg Ao V2 mean: 133.2 cm/sec LV V1 mean P.7 mmHg Ao mean P.1 mmHg LV V1 mean: 78.3 cm/sec Ao V2 VTI: 38.5 cm LV V1 VTI: 22.4 cm PAOLO(I,D): 2.9 cm2 PAOLO(V,D): 2.7 cm2 PA V2 max: 112.8 cm/sec PI end-d misbah: 111.9 cm/sec TR max misbah: 222.9 cm/sec TR max P.9 mmHg Interpretation Summary The study was technically difficult. Contrast injection was performed. Left ventricular systolic function is normal. The estimated ejection fraction is 65 %. The left atrium is mildly enlarged. There is mild mitral annular calcification. Mild (1+) mitral valve insufficiency. Mild tricuspid valve insufficiency. Moderate focal aortic valve calcification. Trivial aortic valve insufficiency. Trivial pulmonic valve insufficiency. Right ventricular systolic pressure estimated to be 23 mmHg. No evidence for diastolic dysfunction. Positive agitated saline contrast study for a right to left interatrial shunt c/w a PFO vs. ASD. Ordering Physician: William Alvarez Referring Physician: Jose Fitzgerald Performed By: Tosin Cruz, LEIDA, RVT 04/07/182204 Date William Alvarez MD CC: Jose Fitzgerald DO; William Alvarez MD Date Dictated: 04/07/18750 Date Transcribed: 04/07/182204 Vocational Education Teacher: Signed LIVER PROFILE Collected: 04/05/2018 Status: F Source: [place] 8:27 AM [facility] [place] REPOSITORY TYPE CODE TESTS RESULT OUT OF RANGE REFERENCE UNITS LAB L501.1500 6.4-8.2 g/dL Normal T PROT 6.6 LAB L501.1800 3.2-5.0 g/dL Normal ALB 3.4 LAB L501.1950 2.2-4.2 g/dL Normal GLOB 3.2 LAB L501.4100 15-37 U/L Low AST 14 LAB L501.4305 45-117 U/L Normal ALK P 54 LAB L501.4405 16-61 U/L Normal ALT 21 LAB L501.4600 0.20-1.00 mg/dL Normal T BILI 0.40 LAB L501.4700 0.00-0.30 mg/dL Normal D BILI 0.07 Performed By: #### L500.3400, L500.4100 #### [facility] [address] [place], [address] LIPID PROFILE Collected: 04/05/2018 Status: F Source: [place] 8:27 AM [facility] TYPE CODE TESTS RESULT OUT OF RANGE REFERENCE UNITS LAB L501.4900 200 mg/dL Normal CHOL 146 Result Comment: <200 mg/dL Desirable 200-240 mg/dL Borderline >240 mg/dL High Risk LAB L501.5000 mg/dL Normal TRIG 94 Result Comment: The drugs N-Acetylcysteine and Metamizole may falsely depress this assay. Serum Triglycerides Reference Interval Normal <150 mg/dL Borderline high 150 - 199 mg/dL High 200 - 499 mg/dL Very High > or = 500 mg/dL LAB L501.6400 mg/dL Normal HDL 52 Result Comment: The drugs N-Acetylcysteine and Metamizole may falsely depress this assay. Reference Range HDL <40 mg/dL Low HDL Cholesterol HDL >or= 60 mg/dL High HDL Cholesterol LAB L501.6500 0-130 mg/dL Normal LDL 75 LAB L501.6600 5-40 mg/dL Normal VLDL 19 Performed By: #### L500.3400, L500.4100 #### [facility] [address] [place], [address] CARDIOLOGY VISIT Observed: 04/04/2018 Status: F Source: [place] REPORT 12:59 PM [facility] [place] REPOSITORY [facility] [address] [place] [address] OFFICE VISIT Date of Service: 04/04/18 MR#: [id number] Acct: [id number] Name: SHAZIA JJ Rep #: [id number] : 1935 Provider: William Alvarez MD Age/Sex: 82/M [place] [facility] [place]: Signed HPI HPI Details: SHAZIA JJ is a 82 M who presents to the office today for outpatient cardiovascular follow-up. The patient denies any ongoing symptoms of classic angina pectoris or CHF/pulmonary edema. There has been no near syncope or syncope. His main concern is his continued intermittent shortness of breath/dyspnea which he believes is related to his underlying pulmonary disease process as well as his fatigue. He had his lipid labs checked in September of this year. His total cholesterol is 143 with an LDL of 66 and an HDL of 51. His triglycerides were 131. Intake Vital Signs04/04/18 Blood Pressure 112/62 04/04/18 Blood Pressure Location Lt brachial 04/04/18 Blood Pressure Position Standing Intake Visit Reasons: 9 M FU Allergies No Known Allergies Allergy (Verified 04/04/18 09:01) Medications aspirin 81 mg tablet,delayed release 81 mg PO QDAY 06/17/17 [History Confirmed 04/04/18] finasteride 5 mg tablet 5 mg PO QDAY 06/17/17 [History Confirmed 04/04/18] fluticasone 250 mcg-salmeterol 50 mcg/dose blistr powdr for inhalation 1 inh INHALATION BID ea 06/17/17 [History Confirmed 04/04/18] gabapentin 300 mg capsule 300 mg PO .COMPLEX 06/17/17 [History Confirmed 04/04/18] nitroglycerin 0.4 mg sublingual tablet 0.4 mg SUBLINGUAL Q5M PRN 06/17/17 [History Confirmed 04/04/18] hydrochlorothiazide 25 mg tablet 25 mg PO QDAY #90 tab 04/04/18 [Rx Confirmed 04/04/18] isosorbide mononitrate ER 60 mg tablet,extended release 24 hr 60 mg PO QDAY #90 tab 04/04/18 [Rx Confirmed 04/04/18] losartan 50 mg tablet 50 mg PO QDAY #90 tab 04/04/18 [Rx Confirmed 04/04/18] pravastatin 20 mg tablet 20 mg PO QHS #90 tab 04/04/18 [Rx Confirmed 04/04/18] FOR[facility] Medical History Non-rheumatic mitral regurgitation (Chronic) Sinus bradycardia (Acute) Premature ventricular contraction (Acute) Premature atrial contractions (Acute) Paroxysmal atrial fibrillation (Acute) Patent foramen ovale (Chronic) Hyperlipidemia (Chronic) Essential hypertension (Chronic) Hx pulmonary embolism (Resolved) CAD (coronary artery disease) (Inactive) Mitral valve regurgitation (Inactive) Surgical History History of coronary artery bypass surgery (Resolved 07/03/03) History of cholecystectomy (Resolved) Status post patent foramen ovale closure (Resolved 07/03/03) S/P CABG (coronary artery bypass graft) (Inactive 2003) Family History Father CVA (cerebral vascular accident) Mother Heart failure Brother Myocardial infarction Brother Cancer Sister Heart disease CAD (coronary artery disease) Daughter Breast cancer Social History Smoking Status: Former smoker alcohol intake: never substance use type: does not use caffeine: Yes Type: coffee Number of servings: 3 what type of physical activity do you participate in: none seatbelt use: always do you feel safe at home: Yes ROS Const Const: Positive for fatigue (increased); negative for weakness, weight gain, weight loss, frequent falls or excessive sweating Eyes Eyes: Negative for change in vision, blurry vision or transient loss of vision ENT ENT: Positive for dizziness (sitting to standing; legs feel rubbery); negative for balance problems Cardio Chest Pain: No Palpitations: No Edema: None Muscle aches with walking: None Resp Respiratory: Positive for SOB with activity (baseline); negative for SOB at rest GI GI: Negative vomiting or vomiting blood/hematemesis : Negative for hematuria Musc Musc: Positive for muscle aches/ myalgia (muscle cramping, toes cramping); negative for balance problems, muscle weakness or joint pain Skin Skin: Negative non-healing lesions or rash Neuro Neuro: Positive for dizziness (sitting to standing; legs feel rubbery); negative for weakness, blurry vision, lightheadedness, frequent falls or orthostatic symptoms Raffaele Hematologic/Lymphatic: Negative for easy bleeding Endo Endo: Positive for fatigue (increased); negative for excessive sweating Psych Psych: Positive for depression (will follow up with PCP on Wednesday); negative for anxiety Allergy Allergy/Immunology: Negative for hives, Negative for rash Cardiology Exam Const Appearance: cooperative, well developed, healthy appearing, comfortable, well groomed and no acute distress Orientation: alert, awake and oriented x3 Head Head: normocephalic, atraumatic and normal to inspection Ears: hearing grossly normal bilaterally Nose: external nose normal Mouth: moist mucous membranes and oral mucosae normal Eyes Eyelids: eyelids normal Conjunctivae: conjunctivae normal Pupils: PERRL EOM: EOM intact bilaterally Neck Neck: normal visual inspection, no JVD and full ROM Carotids: Negative bruit Neck Mass: Negative Neck mass Chest Chest inspection: normal inspection of the chest, symmetric chest movement and normal respiratory effort Auscultation: Bilateral: Clear to Auscultation Cardio Palpation: normal PMI Rate: regular rate Rhythm: regular rhythm Heart sounds: S1 normal and S2 normal; negative rub, gallop or murmur GI GI: normal to inspection, soft and bowel sounds present; negative tender Neuro General: alert, awake, oriented x3, moves all extremities, gait normal, no focal sensory deficit and no focal motor deficits Skin Skin: no rashes or lesions noted Extremities Pulses: Normal: Right Posterior Tibial Pulse, Left Posterior Tibial Pulse, Right Radial Pulse, Left Radial Pulse Lower Extremity Edema: None: Bilateral Psych Psychological: normal affect Supplemental Info Transthoracic echocardiogram: 07/03/2011 Interpretation Summary The study was technically difficult. Based upon the 2D echocardiographic and contrast enhanced images there appears to be grossly normal left ventricular size, wall motion, and systolic function. The estimated ejection fraction is 60 %. Paradoxical septal wall motion c/w a post open heart surgery state. The left atrium is mildly enlarged. There is mild mitral annular calcification. Mild (1+) mitral valve insufficiency. Trivial tricuspid valve insufficiency. Aortic sclerosis, no stenosis. Transmitral diastolic flow velocities suggest diastolic dysfunction (pseudonormal pattern). Stress test: 07/06/2017 The patient underwent pharmacologic (Regadenoson (evaluation with a peak heart rate of 88 bpm (62% predicted maximal heart rate) with a peak blood pressure 128/70 mmHg. The baseline ECG demonstrated sinus bradycardia with nonspecific ST and T-wave abnormality. The peak pharmacologic ECG demonstrated no obvious ECG changes. There were no cardiac dysrhythmias pretest, during pharmacologic infusion, or recovery. The patient had no complaint of chest discomfort during pharmacologic infusion or recovery. The examination was discontinued secondary to completion of protocol. Impression: 1. Pharmacologic (Regadenoson) evaluation 2. Peak pharmacologic ECG with continued nonspecific ST and T-wave abnormality. 3. Nuclear images pending Myocardial perfusion imaging study: Technique: The patient was injected with 11.0 millicuries of technetium 99m Cardiolite and subsequently rest SPECT Cardiolite nuclear imaging was obtained in the horizontal long, vertical long, and short axis views. The patient underwent pharmacologic (Regadenoson (evaluation with a peak heart rate of 88 bpm (62% predicted maximal heart rate) with a peak blood pressure 128/70 mmHg. The patient was injected with 34.0 millicuries of technetium 99m Cardiolite and subsequently stress SPECT Cardiolite nuclear imaging was obtained in the horizontal long, vertical long, and short axis views. A gated Cardiolite study at peak stress was obtained. Interpretation: Rest and stress SPECT Cardiolite nuclear imaging status post realignment, normalization, and attenuation correction, demonstrates the appearance of extracardiac/hepatic and gastrointestinal tracer uptake near the inferior segments. Otherwise there appears to be relative uniform tracer uptake and myocardial perfusion appearing within normal limits. There is end systolic thickening and brightening. The gated Cardiolite study demonstrates myocardial thickening and inward wall motion. The reported LVEF is 71%. Impression: 1. Rest and stress SPECT Cardiolite nuclear imaging demonstrating relative uniform tracer uptake and myocardial perfusion appearing within normal limits. 2. The gated Cardiolite study reports an LVEF of 71%. Cardiac cath: 09/27/2012 catheter-based diagnostic or therapeutic intervention especially of the [place] LCx/OM system. Final impression: 1. Mild elevation left ventricular end diastolic pressure 2. Left ventricle: A. Normal left ventricular size, wall motion, and systolic function B. Estimated LVEF 65% 3. Left main coronary: t . Angiographically normal 4. Left anterior descending coronary artery: A. Septal bait tier #1 with ostial 85% stenosis B. Septal bait tier #2 with ostial 85% stenosis C. The 2nd diagonal branch with proximal 25% stenosis D. Mid LAD 1.00% occluded Remainder of the LAD filling from the SUN graft with minimal luminal irregularities 3rd diagonal branch filling from the SUN graft with minimal luminal irregularities Left circumflex coronary: A. ProximaHy 100% occluded B. Bifurcating OM system filling from left left collateral flow and providing retrograde flow into the SVG graft Right coronary artery: A. 100% occluded B. Right PDA, right AV segment, right posterior lateral branching system filling from the SVG graft SUN to the LAD: A. Patent with no angiographically significant appearing stenosis SVG to the LCx/OM system: A. Proximally 100% occluded B. Distal portion filling from retrograde flow from the [place] bifurcating OM system SVG to the RCA system: A. Patent with no angiographically significant appearing disease 10. Mitral valve: A. Mild scalloping compatible with mild mitral valve prolapse Open heart surgery: 07/03/2003: [facility]: SUN to the diagonal branch sequencing to the LAD, SVG to the LCx, SVG to the RCA x2, closure of patent foramen ovale Holter monitor: 09/15/2012 NORMAL SINUS RHYTHM WITH RARE EPISODES OF MARKED SINUS ARRHYTHMIA. LONGEST R-R INTERVAL 2.0 SECONDS. T WAVE INVERSION NOTED IN CHANNELS 2 AND 3. MINIMUM HR 428PM AT 2:49:33 AM, NO ACTIVITY OR SYMPTOM RECORDED. AVERAGE HR 72 3PM MAXIMUM HR 121 8PM AT 2:1 5:27 PM, NO ACTIVITY OR SYMPTOM RECORDED. RARE ISOLATED PREMATURE ATRIAL COMPLEXES, RARELY NONCONDUCTED. 91 ATRIAL COUPLETS. RARE ATRIAL BIGEMINY AND TRIGEMINY. NO RUNS NOTED. RARE ISOLATED PREMATURE VENTRICULAR COMPLEXES. NO RUNS NOTED. NO SYMPTOMS DOCUMENTED IN 24 HOUR HOLTER DIARY. Assessment AND Plan 1. Atherosclerotic heart disease of [place] coronary artery without angina pectoris I25.10 Plan At the present time he appears to be doing well. He will continue his current medical management and follow-up. 2. History of coronary artery bypass graft Z95.1 CABG x5- SUN in sequence to Diagonal and LAD, SVG to RCA x2, and SVG to CX 07/03/03 Plan He has undergone evaluation in the past as noted above. At the moment he will continue further evaluation and care Orders Orders: 3. Premature atrial beat I49.1 Plan He does have a history of underlying ectopy. He appears without acute symptoms. He will continue his current medical therapy. Orders Orders: 4. Premature ventricular beat I49.3 Plan Again he has a history of underlying ventricular ectopy. Again he appears to be without acute symptoms. He will continue medical management. Orders Orders: 5. Sinus bradycardia R00.1 Plan He has a history of sinus bradycardia. He has been without rate limiting medications. Based upon his concern of his intermittent shortness of breath and his chronic fatigue he will have a follow-up Holter monitor to reassess his average rate and rhythm. If he is becoming more bradycardic and it is clearly associated with symptoms then he may need to be considered for permanent pacemaker support. Orders Orders: 6. Paroxysmal atrial fibrillation I48.0 Plan He has had no obvious recurrence of his atrial dysrhythmia. Again he will be reassessed as noted above. 7. Non-rheumatic mitral regurgitation I34.0 Plan He has a history of MR. He will have a follow-up echocardiogram to reassess his valvular anatomy and physiology as well as his left ventricular wall motion and systolic function, especially noting his shortness of breath and fatigue Orders Orders: 8. Patent foramen ovale Q21.1 Closure 07/03/03 Plan His PFO was closed at the time of his surgery. 9. Pure hypercholesterolemia E78.00 Plan He will be having future fasting lipid and hepatic profile performed. Orders Orders: 10. Essential hypertension I10 Plan He will continue medical management Plan Detail Other Orders Orders: Other Medications Refilled: Additional Comments Thank you for allowing me to participate in the care of your patient. Please don't hesitate to call if any issues arise. This note was generated using a voice recognition system and there may be incorrect words, spelling or punctuation that were not noted when reviewing the office note prior to saving. Follow Up 6 Months (PFM) Coding Level of Care Code Off vis,est,level 4 Diagnoses Atherosclerotic heart disease of [place] coronary artery without angina pectoris I25.10 History of coronary artery bypass graft Z95.1 Premature atrial beat I49.1 Premature ventricular beat I49.3 Sinus bradycardia R00.1 Paroxysmal atrial fibrillation I48.0 Non-rheumatic mitral regurgitation I34.0 Patent foramen ovale Q21.1 Pure hypercholesterolemia E78.00 Hyperlipidemia type: pure hypercholesterolemia Essential hypertension I10 Coding Level of Care Code Off vis,est,level 4 Diagnoses Atherosclerotic heart disease of [place] coronary artery without angina pectoris I25.10 History of coronary artery bypass graft Z95.1 Premature atrial beat I49.1 Premature ventricular beat I49.3 Sinus bradycardia R00.1 Paroxysmal atrial fibrillation I48.0 Non-rheumatic mitral regurgitation I34.0 Patent foramen ovale Q21.1 Pure hypercholesterolemia E78.00 Hyperlipidemia type: pure hypercholesterolemia Essential hypertension I10 04/04/18 1259 <Electronically signed by William Alvarez MD> Date William Alvarez MD Cosigner Signature: Date (if applicable) CC: Jose Fitzgerald DO BASIC METABOLIC Collected: 10/04/2017 Status: F Source: [place] PROFILE (BMP) 8:19 AM [facility] [place] REPOSITORY TYPE CODE TESTS RESULT OUT OF RANGE REFERENCE UNITS LAB L501.0100 74-106 mg/dL Normal GLU 97 Result Comment: Please note revised GLUCOSE reference range effective 2017. LAB L501.1000 7-18 mg/dL Normal BUN 16 LAB L501.1100 0.70-1.30 mg/dL Normal CREAT,SERUM 1.30 Result Comment: The validity of the calculated GFR AND GFRAA in patients over 70 years has not been determined. Clinical correlation is essential. LAB L501.1110 >60 mL/min Low EST GFR 56 Result Comment: Non- GFR Calc LAB L501.1115 >60 mL/min Normal EST GFR - AA 68 Result Comment: GFR Calc LAB L501.1300 10-20 RATIO Normal BUN/CRE 12.3 LAB L501.2200 8.5-10.1 mg/dL CA Normal 8.6 LAB L501.5300 136-145 mmol/L NA Normal 143 LAB L501.5600 3.5-5.1 mmol/L K Normal 4.0 LAB L501.5900 98-107 mmol/L CL Normal 107 LAB L501.6100 21.0-32.0 mmol/L Normal CO2 29.0 LAB L501.6200 5-15 Normal GAP 7 Performed By: #### L500.2500 #### [facility] [address] [place], [address] CBC W/DIFF, AUTOMATED Collected: 10/04/2017 Status: F Source: [place] 8:19 AM [facility] REPOSITORY TYPE CODE TESTS RESULT OUT OF RANGE REFERENCE UNITS LAB L100.1000 4.4-11.0 K/mm3 Normal WBC 5.5 LAB L100.1200 4.6-6.2 M/mm3 Normal RBC 4.97 LAB L100.1300 13.0-16.5 g/dl Normal HGB 15.2 LAB L100.1400 40-54 % Normal HCT 45.5 LAB L100.1500 80-94 fL Normal MCV 91.5 LAB L100.1600 27.0-32.0 pg Normal MCH 30.6 LAB L100.1700 32-36 g/gl Normal MCHC 33.4 LAB L100.1810 11.6-14.6 % Normal RDW CV 13.6 LAB L100.1820 35.1-43.9 fl High RDW SD 44.9 LAB L100.1900 150-450 K/mm3 Normal PLT 189 LAB L100.2000 6.2-12.0 fl Normal MPV 11.0 LAB L100.2100 47-70 % Normal NEUT% 59.5 LAB L100.2200 19-41 % Normal LY% 27.6 LAB L100.2300 0-10 % Normal MONO% 7.1 LAB L100.2400 0-5 % Normal EO% 4.5 LAB L100.2500 0-1 % High BASO% 1.3 LAB L100.2550 0.0-0.9 % Normal IM GRAN % 0.000 Result Comment: IG% - Immature Granulocytes (promyelocytes, myelocytes and metamyelocytes) > 1% indicates that a LEFT SHIFT is Present. LAB L100.2620 2.0-7.7 X10 3/uL Normal Absolute Neut 3.3 LAB L100.2720 0.83-4.51 X10 3/ul Normal Absolute Lymph 1.52 Performed By: #### L100.0100 #### [facility] [address] [place], [address] LIVER PROFILE Collected: 10/04/2017 Status: F Source: [place] 8:18 AM [facility] REPOSITORY Order Comment: Order Date: 04/09/17 Order Info: [id number] - *Hepatic Function Panel Order Info: [id number] - *Lipid Profile CC PCP Comments: 12 hours fasting, may have water. TYPE CODE TESTS RESULT OUT OF RANGE REFERENCE UNITS LAB L501.1500 6.4-8.2 g/dL Normal T PROT 6.6 LAB L501.1800 3.2-5.0 g/dL Normal ALB 3.5 LAB L501.1950 2.2-4.2 g/dL Normal GLOB 3.1 LAB L501.4100 15-37 U/L Low AST 13 LAB L501.4305 45-117 U/L Normal ALK P 53 LAB L501.4405 16-61 U/L Normal ALT 18 LAB L501.4600 0.20-1.00 mg/dL Normal T BILI 0.40 LAB L501.4700 0.00-0.30 mg/dL Normal D BILI 0.09 Performed By: #### L500.3400 #### [facility] [address] [place], [address] LIPID PROFILE Collected: 10/04/2017 Status: F Source: [place] 8:18 AM [facility] [place] REPOSITORY Order Comment: Order Date: 04/09/17 Order Info: [id number] - *Hepatic Function Panel Order Info: [id number] - *Lipid Profile CC PCP Comments: 12 hours fasting, may have water. TYPE CODE TESTS RESULT OUT OF RANGE REFERENCE UNITS LAB L501.4900 200 mg/dL Normal CHOL 143 Result Comment: <200 mg/dL Desirable 200-240 mg/dL Borderline >240 mg/dL High Risk LAB L501.5000 mg/dL Normal TRIG 131 Result Comment: The drugs N-Acetylcysteine and Metamizole may falsely depress this assay. Serum Triglycerides Reference Interval Normal <150 mg/dL Borderline high 150 - 199 mg/dL High 200 - 499 mg/dL Very High > or = 500 mg/dL LAB L501.6400 mg/dL Normal HDL 51 Result Comment: The drugs N-Acetylcysteine and Metamizole may falsely depress this assay. Reference Range HDL <40 mg/dL Low HDL Cholesterol HDL >or= 60 mg/dL High HDL Cholesterol LAB L501.6500 0-130 mg/dL Normal LDL 66 LAB L501.6600 5-40 mg/dL Normal VLDL 26 Performed By: #### L500.4100 #### [facility] [address] [place], [address] STRESS REPORT Observed: 07/06/2017 Status: F Source: [place] 10:28 AM [facility] REPOSITORY [facility] Cardiovascular Services [address] [place] [address] MR#: [id number] Acct: [id number] Name: SHAZIA JJ Rep #: [id number] : 1935 81 From: William Alvarez MD Primary Care: Jose Fitzgerald DO Status: REG CLI Ordering Dr: Indra Barton Stress Test Report Date: 07/06/2017 Procedure: Pharmacologic stress nuclear imaging study Indications: CAD; status post CABG Consent: Per the patient Procedure: The patient underwent pharmacologic (Regadenoson (evaluation with a peak heart rate of 88 bpm (62% predicted maximal heart rate) with a peak blood pressure 128/70 mmHg. The baseline ECG demonstrated sinus bradycardia with nonspecific ST and T-wave abnormality. The peak pharmacologic ECG demonstrated no obvious ECG changes. There were no cardiac dysrhythmias pretest, during pharmacologic infusion, or recovery. The patient had no complaint of chest discomfort during pharmacologic infusion or recovery. The examination was discontinued secondary to completion of protocol. Impression: 1. Pharmacologic (Regadenoson) evaluation 2. Peak pharmacologic ECG with continued nonspecific ST and T-wave abnormality. 3. Nuclear images pending Myocardial perfusion imaging study: Technique: The patient was injected with 11.0 millicuries of technetium 99m Cardiolite and subsequently rest SPECT Cardiolite nuclear imaging was obtained in the horizontal long, vertical long, and short axis views. The patient underwent pharmacologic (Regadenoson (evaluation with a peak heart rate of 88 bpm (62% predicted maximal heart rate) with a peak blood pressure 128/70 mmHg. The patient was injected with 34.0 millicuries of technetium 99m Cardiolite and subsequently stress SPECT Cardiolite nuclear imaging was obtained in the horizontal long, vertical long, and short axis views. A gated Cardiolite study at peak stress was obtained. Interpretation: Rest and stress SPECT Cardiolite nuclear imaging status post realignment, normalization, and attenuation correction, demonstrates the appearance of extracardiac/hepatic and gastrointestinal tracer uptake near the inferior segments. Otherwise there appears to be relative uniform tracer uptake and myocardial perfusion appearing within normal limits. There is end systolic thickening and brightening. The gated Cardiolite study demonstrates myocardial thickening and inward wall motion. The reported LVEF is 71%. Impression: 1. Rest and stress SPECT Cardiolite nuclear imaging demonstrating relative uniform tracer uptake and myocardial perfusion appearing within normal limits. 2. The gated Cardiolite study reports an LVEF of 71%. This note was generated with [employer] Dictation software. Every effort was made to ensure accuracy, however, computerized lingo cleaner mistakes may persist. 07/06/17 1028 <Electronically signed by William Alvarez MD> Date William Alvarez MD CC: Jose Riley Date Dictated: 07/06/17 1018 Date Transcribed: 07/06/17 1018 Vocational Education Teacher: PM Signed CARDIOLOGY VISIT Observed: 06/28/2017 Status: F Source: [place] REPORT 6:17 PM [facility] REPOSITORY [facility] [address] [place] [address] OFFICE VISIT Date of Service: 06/28/17 MR#: [id number] Acct: [id number] Name: SHAZIA JJ Rep #: [id number] : 1935 Provider: Mandie Riley Age/Sex: 81/M Location: [facility] Status: Signed HPI 6 M FU: Details: SHAZIA JJ, is a 81 M who presents to the office today for a cardiovascular follow-up. He has a history of coronary artery disease with bypass surgery in 2003. Heart catheterization in 2012 demonstrated patent left main, circumflex totally occluded, total left collateral flow, RCA was occluded and filled from SVG, SUN to LAD was patent, SVG to the circumflex was occluded. SVG to the RCA was patent. Medical management was recommended. He feels a weakness on his his right leg and sometimes it feels like it wants to give out when he is walking. He does not have any burning in his leg. He has not talked to his PCP about this yet. He does not have any chest pain/heaviness/tightness. He does not have any worsening SOB. He does not have any palpitations. He does not have any near syncope/syncope. He does not have any lower extremity edema. Intake Vital Signs06/28/17 Height 5 ft 11 in 06/28/17 Weight: 89.358 kg 06/28/17 Body Mass Index (BMI) 27.4 06/28/17 Blood Pressure 148/72 06/28/17 Blood Pressure Location Lt brachial Intake Visit Reasons: 6 M FU Well Driller Required: No Accompanied by: None Is patient in pain?: Yes (right shoulder, occasional pain) Pain scale (1-10): 4 Allergies No Known Allergies Allergy (Verified 06/28/17 10:04) Medications aspirin 81 mg tablet,delayed release 81 mg PO QDAY 06/17/17 [History Confirmed 06/28/17] finasteride 5 mg tablet 5 mg PO QDAY 06/17/17 [History Confirmed 06/28/17] fluticasone 250 mcg-salmeterol 50 mcg/dose blistr powdr for inhalation 1 inh INHALATION BID ea 06/17/17 [History Confirmed 06/28/17] gabapentin 300 mg capsule 300 mg PO .COMPLEX 06/17/17 [History Confirmed 06/28/17] nitroglycerin 0.4 mg sublingual tablet 0.4 mg SUBLINGUAL Q5M PRN 06/17/17 [History Confirmed 06/28/17] hydrochlorothiazide 25 mg tablet 25 mg PO QDAY #90 tab 06/28/17 [Rx Confirmed 06/28/17] isosorbide mononitrate ER 60 mg tablet,extended release 24 hr 60 mg PO QDAY #90 tab 06/28/17 [Rx Confirmed 06/28/17] losartan 50 mg tablet 50 mg PO QDAY #90 tab 06/28/17 [Rx Confirmed 06/28/17] pravastatin 20 mg tablet 20 mg PO QHS #90 tab 06/28/17 [Rx Confirmed 06/28/17] Ejection fraction %: 60 to 64 PFSH Medical History Mitral valve regurgitation (Chronic) Patent foramen ovale (Chronic) Hyperlipidemia (Chronic) Essential hypertension (Chronic) CAD (coronary artery disease) (Chronic) Hx pulmonary embolism (Resolved) Surgical History S/P CABG (coronary artery bypass graft) (Resolved 2003) Family History Father CVA (cerebral vascular accident) Mother Heart failure Brother Myocardial infarction Brother Cancer Sister Heart disease CAD (coronary artery disease) Daughter Breast cancer Social History Smoking Status: Former smoker alcohol intake: never substance use type: does not use caffeine: Yes Type: coffee Number of servings: 3 what type of physical activity do you participate in: none seatbelt use: always do you feel safe at home: Yes ROS Const Const: Negative for fever(s), fatigue, weakness or headache(s) Eyes Eyes: Negative for blind spots, loss of peripheral vision or transient loss of vision ENT ENT: Negative for tinnitus, Negative for Nosebleed/epistaxis, Negative for headache(s), Negative for dizziness Cardio Chest Pain: No Palpitations: Positive for No Edema: None Muscle aches with walking: Right Resp Respiratory: Negative for SOB with activity, SOB at rest or SOB orthopnea\SOB lying down GI GI: Negative nausea, vomiting, heartburn or vomiting blood/hematemesis : Negative for hematuria Musc Musc: Positive for muscle aches/ myalgia and muscle weakness Neuro Neuro: Negative for near syncope, Negative for syncope, Negative for lightheadedness, Negative for weakness, Negative for headache(s), Negative for dizziness Raffaele Hematologic/Lymphatic: Negative for easy bleeding Endo Endo: Negative for fatigue Cardiology Exam Const Appearance: cooperative, no acute distress and well developed Orientation: alert, awake and oriented x3 Head Head: normocephalic and atraumatic Mouth: moist mucous membranes Eyes General: appearance normal, both eyes and all related structures Conjunctivae: conjunctivae normal Pupils: PERRL EOM: EOM intact bilaterally Neck Neck: normal visual inspection, no lymphadenopathy and no JVD Carotids: Negative bruit Neck Mass: Negative Neck mass Chest Chest inspection: normal inspection of the chest and symmetric chest movement Auscultation: Bilateral: Clear to Auscultation Cardio Palpation: normal PMI Rate: regular rate Rhythm: regular rhythm Heart sounds: S1 normal and S2 normal; negative rub, gallop or murmur GI GI: normal to inspection, soft, no hepatosplenomegaly and bowel sounds present; negative tender Neuro General: alert, awake, oriented x3, CN's II-XI intact bilaterally and moves all extremities Extremities Pulses: Normal: Right Posterior Tibial Pulse, Left Posterior Tibial Pulse, Right Radial Pulse, Left Radial Pulse Lower Extremity Edema: None: Bilateral Psych Psychological: normal affect Assessment AND Plan 1. Coronary artery disease involving salt river coronary artery of [place] river heart without angina pectoris I25.10 SUN sequence to Diag and LAD, SVC to RCA x2, SVG to Cx Plan - THEODORA Henry Stable, from a cardiac standpoint patient does not have any symptoms of angina. We recommend that they continue with current aggressive medical management and risk factor modification. However it is been greater than 5 years since she has had any cardiac testing done, would like to obtain a pharmacologic nuclear stress test to evaluate underlying ischemia. Orders Orders: 2. Essential hypertension I10 Plan - THEODORA Henry Blood pressure is well controlled on current medications, we do not recommend any changes at this time. 3. Pure hypercholesterolemia E78.00; E78.0 Plan - THEODORA Henry Recent lipid profile demonstrates total cholesterol 153, HDL 49, LDL 74. Will continue with current medical management. 4. Patent foramen ovale Q21.1 Plan - THEODORA Henry Patient does not have any hemodynamic issues. We will continue to monitor with echocardiograms as deemed appropriate. Plan Detail Other Medications New: Additional Comments - THEODORA Henry In regards to patient's concern over right leg pain. Advised that he discuss this with his primary care doctor as he does have excellent bilateral pulses. The above patient was discussed with Dr. Alvarez, he agrees with plan of care. Thank you for allowing us to participate in patient's plan of care, if you have any questions please do not hesitate to call. This note was generated using a voice recognition system and there may be incorrect words, spelling or punctuation errors that were not noted when reviewing the office note prior to saving. Follow Up 9 Months (PFM) Coding Level of Care Code Off vis,est,level 4 Diagnoses Coronary artery disease involving salt river coronary artery of salt river heart without angina pectoris I25.10 Associated angina: without angina Coronary Disease-Associated Artery/Lesion type: salt river artery [place] vs. transplanted heart: salt river heart Essential hypertension I10 Pure hypercholesterolemia E78.00; E78.0 Hyperlipidemia type: pure hypercholesterolemia Patent foramen ovale Q21.1 06/28/17 1021 <Electronically signed by Mandie YIP> Date Mandie YIP 06/28/17 1817<Electronically signed by William Alvarez MD> Cosigner Signature: Date (if applicable) William Alvarez MD CC: Jose Fitzgerald DO CYTOLOGY, BODY FLUID / Collected: 06/21/2017 Status: F Source: [place] CSF 9:15 AM [facility] REPOSITORY Order Comment: Specimen Source: URINE TYPE CODE TESTS RESULT OUT OF RANGE REFERENCE UNITS LAB L350.1000 SEE Normal PATHOLOGY CYTOLOGY,BF REPORT /CSF Result Comment: Specimen submitted to Anatomical Pathology Department for testing. Performed By: #### L350.1000 #### [facility] [facility] [address] 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 Case has been reviewed in consultation with Dr. Bell who concurs with the above diagnosis. IDC:AM CYTOLOGY GROSS Received is 60 ml of gold clear fluid labeled with the patient's name and and designated per the requisition as urine. Submitted for cytology preparation. / 06/22/17 TC:0 CPT: 34067 CYTOLOGY STUDY Slides are reviewed. DIAGNOSIS CYTOLOGY Urine for cytology (cytospin): Malignant cells present derived from urothelial carcinoma. Acute inflammation. SJ:thomas 06/23/17 HEADER OPERATION: Not noted PRE-OP DIAGNOSIS: History bladder CA Z85.51 TISSUE SUBMITTED: Urine for cytology Signed Matthew Mercedes 06/23/17 <signature on file> Performed By: #### PCYSPIN #### [facility] [address] [place], [address] ALLERGIES ALLERGIES DATE TYPE / CODE NAME / CODE REACTION SEVERITY SOURCE 05/09/2018 Drug No Known Unknown [facility] Allergy/4160 Allergies/F00 Hospital 88857(SNOMED 8372865(RXNOR Repository CT) M) ENCOUNTERS ENCOUNTERS ADMIT/DISCHARGE ACCOUNT ADMITTING ENCOUNTER LOCATION SOURCE NUMBER CLASS 05/10/2018/ [id number] Ambulatory [facility] 8 4 [facility] ing:CLSP Repository 05/05/2018/ [id number] Ambulatory [facility] [place] 8 1 [facility] Repository 04/26/2018 [id number] Ambulatory BMSBuilding:W [place] 5 [facility] Repository 04/26/2018 [id number] Ambulatory [place] 6 [facility] Hospital ing:[facility]S Repository 04/07/2018 [id number] Ambulatory [place] 6 [facility] Hospital ing:PSN Repository 04/07/2018 [id number] Ambulatory BMSBuilding:W [place] 1 [facility] Repository 04/05/2018 [id number] Ambulatory [place] 3 [facility] Hospital ing:MTLAB Repository 04/04/2018/ [id number] Ambulatory BMSBuilding:B [place] 8 4 [facility] Repository 03/31/2018 [id number] Ambulatory BMSBuilding:B [place] 1 [facility] Repository 10/04/2017 [id number] Ambulatory [place] 0 [facility] Hospital ing:LAB.FUTUR Repository E 07/06/2017 [id number] Ambulatory [place] 3 [facility] Hospital ing:CVS Repository 07/06/2017 [id number] Ambulatory BMSBuilding:W [place] 4 [facility] Repository 06/28/2017/ [id number] Ambulatory BMSBuilding:B [place] 8 3 [facility] Repository 06/21/2017 [id number] Ambulatory [place] [address] 7 [facility] Hospital ing:LABSPEC Repository PAYERS PAYERS ENCOUNTER GUARANTOR PAYER SUBSCRIBER SOURCE 05/10/2018 SHAZIA R Primary SHAZIA R [place] [id number] [facility] [place] MED[id number] Number: Repository [address]Xjl: (150) [id number] [phone] () Date:8240-71-55CK [facility] [address] [place] [address] 88[address]OG: 05/10/2018 Secondary NOT GIVENUNK [place] Insurance:SELF PAY [facility] Number: Effective Repository Date:2018-04-29 05/05/2018 SHAZIA R Primary SHAZIA R [place] [id number] [facility] Community [place] MEDICARE[place] [id number], [place] Number: Repository [address]Zfu: 330 [id number] [phone] (HP) Date:1852-41-67WD [address] [facility] [place] [address]NH: 05/05/2018 Secondary NOT GIVENUNK [place] Insurance:SELF PAY [facility] Number: Effective Repository Date:2018-05-05 04/26/2018 SHAZIA R Primary SHAZIA R [place] [id number] [facility] Community [place] MEDICARE[place] [id number], [place] Number: Repository [address]Xdr: (330 [id number] [phone] (HP) Date:8351-96-67WN [address] [place] [address] 150[address]RX: 04/26/2018 Secondary NOT GIVENUNK [place] Insurance:SELF PAY [facility] Number: Effective Repository Date:2018-04-26 04/26/2018 SHAZIA R Primary SHAZIA R [place] [id number] Insurance:[facility]: Community [place] MEDICARE[place] [id number], [place] Number: Repository [phone]: (330 [id number] [phone] (HP) Date:5556-77-48NC [address] [place] [address] 82[address]MK: 04/26/2018 Secondary NOT GIVENUNK [place] Insurance:SELF PAY [facility] Number: Effective Repository Date:2018-04-13 04/07/2018 SHAZIA R Primary SHAZIA R [place] [id number] [facility] Community [place] MEDICARE[place] [id number], [place] Number: Repository [address]Vfv: (330 [id number] [phone] (HP) Date:7726-02-65FV [address] [place] [address] 075[address]TM: 04/07/2018 Secondary NOT GIVENUNK [place] Insurance:SELF PAY [facility] Number: Effective Repository Date:2018-04-04 04/07/2018 SHAZIA R Primary SHAZIA R [place] [id number] Insurance[facility]: Community [place] MEDICARE[place] [id number], [place] Number: Repository [address]Wwc: 330 [id number] [phone] (HP) Date:3120-32-33DA [address] [place] [address] 75879TY: 04/07/2018 Secondary NOT GIVENUNK [place] Insurance:SELF PAY [facility] Number: Effective Repository Date:2018-04-07 04/05/2018 SHAZIA R Primary SHAZIA R [place] [id number] [facility] Community [place] MED[place]ARE[place] [id number], [place] Number: Repository [address]Lia: 330 [id number] [phone] (HP) Date:0772-15-88LG [address] [place] [address] 579[address]CM: 04/05/2018 Secondary NOT GIVENUNK [place] Insurance:SELF PAY [facility] Number: Effective Repository Date:2018-04-05 04/04/2018 SHAZIA R Primary SHAZIA R [place] [id number] Insurance:[facility]: Community [place] MEDICARE[place] [id number], [place] Number: Repository [address]Sic: 330 [id number] [phone] (HP) Date:7929-29-40NW [address] [place] [address] 54258FT: 04/04/2018 Secondary NOT GIVENUNK [place] Insurance:SELF PAY [facility] Number: Effective Repository Date:2018-04-04 03/31/2018 SHAZIA R Primary SHAZIA R [place] [id number] [facility] Community [place] MEDICARE[place] [id number], [place] Number: Repository [address]Dqj: 330 [id number] [phone] (HP) Date:8863-61-54GL [address] [place] [address] 64336IC: 03/31/2018 Secondary NOT GIVENUNK [place] Insurance:SELF PAY [facility] Number: Effective Repository Date:2018-03-31 10/04/2017 SHAZIA R Primary SHAZIA R [place] [id number] Insurance:[facility] CARE ELGINDOB: Community [place] MEDICARE[place] [id number], [place] Number: Repository [address]Jgb: 330 [id number] [phone] () Date:9793-32-23GY [address] [place] [address] 60008ED: 10/04/2017 Secondary NOT GIVENUNK [place] Insurance:SELF PAY [facility] Number: Effective Repository Date:2017-04-19 07/06/2017 SHAZIA R Primary SHAZIA R [place] [id number] Insurance[facility]: Community [place] MEDICAREPolicy [id number], [place] Number: Repository [address]Yyl: 330 [id number] [phone] () Date:3559-62-21WL [address] [place] [address] 96987ZK: 07/06/2017 Secondary NOT GIVENUNK [place] Insurance:SELF PAY [facility] Number: Effective Repository Date:2017-06-28 07/06/2017 SHAZIA R Primary SHAZIA R [place] [id number] Insurance[facility]: Community [place] MEDICARE[place] [id number], [place] Number: Repository [address]Wln: 330 [id number] [phone] () Date:1923-71-25ZR [address] [place] [address] 96443IM: 07/06/2017 Secondary NOT GIVENUNK [place] Insurance:SELF PAY [facility] Number: Effective Repository Date:2017-07-06 06/28/2017 SHAZIA R Primary SHAZIA R [place] [id number] Insurance[facility]: Community [place] MEDICARE[place] [id number], [place] Number: Repository [address]Yfu: 330 [id number] [phone] () Date:4881-72-02YY [address] [place] [address] 67087AH: 06/28/2017 Secondary NOT GIVENUNK [place] Insurance:SELF PAY [facility] Number: Effective Repository Date:2017-05-03 06/21/2017 Shazia R Primary Shazia R [place] [id number] Insurance:[facility]: Community [place] MEDICARE[place] [id number], [place] Number: Repository [address]Bmg: 330 [id number] [phone] () Date:6801-07-69MM [address] [place] [address] 116[address]WY: 06/21/2017 Secondary NOT GIVENUNK [place] Insurance:SELF PAY [facility] Number: Effective Repository Date:2017-06-21
== END ==
PROVIDERS: Family Provider Family Medicine; PCP Family Medicine; Referring Provider Internal Medicine Cardiovascular Disease; Visit Provider Internal Medicine Cardiovascular Disease
DX: I25.10 Atherosclerotic heart disease of native coronary artery without angina pectoris (principal); I48.0 Paroxysmal atrial fibrillation; I44.1 Atrioventricular block, second degree
CPT/HCPCS: 93017

== ENCOUNTER 2018-05-10 08:49 | Day surgery (SDC) | payer MEDICARE, SELFPAY ==
[2018-05-05 10:10] VITALS: BMI 27.8
--- NOTE | 2018-05-05 11:00 | RAD_ITS ---
STUDY: X-RAY CHEST REASON FOR EXAM: Male, 82 years old. Preheart catheter TECHNIQUE: Frontal and lateral views of the chest. COMPARISON: None. FINDINGS: Median sternotomy wires and CABG clips and markers. The lungs are clear and expanded. There is no demonstrated pleural abnormality. Normal size heart. Normal mediastinum and ray. Normal visualized pulmonary arteries. Normal visualized aortic arch and descending thoracic aorta. Normal visualized thoracic spine. Infarct versus enchondroma in the left humerus. There is no demonstrated abnormality of the visualized soft tissue structures of the upper abdomen. RAD/Chest PA and Lateral IMPRESSION: No acute pulmonary findings. Electronically Signed: Hawk Abbott MD at 8:40 EST Tel , Service support ,
[2018-05-05 12:39] LABS: Hematocrit 47.5 % (40-54); Hemoglobin 15.4 g/dl (13.0-16.5); Mean Corp Hgb Conc 32.4 g/gl (32-36); Mean Corpuscular Volume 92.4 fL (80-94); Mean Platelet Vol. 10.6 fl (6.2-12.0); Platelet Count 209 K/mm3 (150-450); RBC Distribution Width CV 13.4 % (11.6-14.6); RBC Distribution Width SD 45.3 fl (35.1-43.9); Red Blood Count 5.14 M/mm3 (4.6-6.2); Scan Indicated on CBC? Y/N NO; White Blood Count 6.7 K/mm3 (4.4-11.0)
[2018-05-05 12:46] LABS: International Normalized Ratio 1.1; Prothrombin Time (Protime)PT. 14.1 SECONDS (11.7-14.9)
[2018-05-05 12:47] LABS: Partial Thromboplast Time 33.7 Seconds (24.1-36.2)
[2018-05-05 13:09] LABS: Anion Gap 7 (5-15); BUN 19 mg/dL (7-18); BUN/Creat Ratio 15.3 RATIO (10-20); Calcium,Total 8.8 mg/dL (8.5-10.1); Chloride 104 mmol/L (98-107); Creatinine, Serum 1.24 mg/dL (0.70-1.30); EST Glomerular Filtration Rate 59 mL/min (>60); Est Glom Filt Rate - Afr Amer 72 mL/min (>60); Glucose 93 mg/dL (74-106); Potassium 3.8 mmol/L (3.5-5.1); Sodium Level 141 mmol/L (136-145)
[2018-05-09 11:01] VITALS: BMI 27.8
--- NOTE | 2018-05-10 11:12 | CL.D_ITS ---
Patient Name: SHAZIA JJ Study Date: 05/10/2018 Performing: William Alvarez MD Ht: 70.86 inches 180 cm : 1935 Wt: 200.62 lbs 91 kg Age: 82 Gender: male BSA: 2.11 PROCEDURE(S) PERFORMED TK06-OMM/COR/LV/CABG CLINICAL PROFILE AND INDICATIONS Indications: Suspected CAD Heart Failure: None Stress/Imaging Standard Exercise Stress Test: Yes Result: Positive Angina Classification Anginal Classification w/in 2 Weeks: CCS II CAD Presentations: Other: Dyspnea on exertion; Fatigue (Angina Pectoris Equivalent) CONCLUSIONS Elevated Left Ventricular End Diastolic Pressure Normal LV size, wall motion,and systolic function LVEF: by LV gram 65 % [place] Multivessel CAD SUN sequential graft to LAD and DX2: patent SVG to LCX: occluded (chronic) SVG to RCA: patent Mitral Valve Scalloping: Mild Mitral Valve Insufficiency: Trace RECOMMENDATIONS Risk factor modification Medical therapy DESCRIPTION OF PROCEDURE The patient arrived to the procedure lab. The risks and benefits of the procedure as well as a full d escription of our services here and current unavailability of surgical backup were fully explained to the patient and/or their significant other prior to the catheterization. The Timeout was completed, verifying the correct patient and procedure. The patient's procedural site was prepped and draped in the usual fashion. Local anesthetic was given subcutaneously to right groin region with Lidocaine 2%. Using a modified Seldinger technique, arterial access was obtained via the right femoral artery, a 4 Fr sheath was inserted Left Coronary Artery selective angiography was performed in multiple views us ing a 4 Fr. JL4 catheter. Right Coronary Artery selective angiography was then performed in multiple views using a 4 Fr. JR4 catheter. Saphenous Vein graft to the RCA selective angiography was performed in multiple views using a 4 Fr. JR4 catheter. Saphenous Vein graft to the Circumflex artery (occluded graft) selective angiography was performed in single view using a 4 Fr. JR4 catheter . Left internal mammary artery graft to the LAD selective angiography was performed in multiple views using a 4 Fr. IM catheter. Left Ventriculography was performed in COREY projection using a 4 Fr. [place] catheter. Simultaneous pressures were then recorded.The arterial sheath was pulled and manual comp ression applied until hemostasis is achieved. CORONARY ANGIOGRAPHY DOMINANCE: Right Dominant LEFT HEART ASSESSMENT Left Ventricular Ejection Fraction: by LV Gram 65 % LV wall motion not assessed Elevated Left Ventricular End Diastolic Pressure LVEDP: 13 mmHg LEFT MAIN: Angiographically normal LEFT ANTERIOR DECENDING ARTERY: MID LAD: 100 % Stenosis, Fills from the SUN sequential graft to the DX2 and LAD with no angiographic ally significant appearing disease distal to the graft attachment DIAGONAL 2: Proximal - 25-50 % Stenosis, Mid - Fills from the SUN sequential graft to the DX2 and LA D with no angiographically significant appearing disease distal to the graft attachment SEPTAL: Ostial: 85 % Stenosis CIRCUMFLEX ARTERY: MID CIRC: 100 % Stenosis OM 1: Proximal - Fills via left to left collateral flow RIGHT CORONARY ARTERY: MID RCA: 100 % Stenosis DISTAL RCA: RPDA; RAVS; RPL filling from the SVG graft with no angiographically significant appearing disease distal the graft attachment GRAFTS: Mid LAD: Fills from the SUN sequential graft to the DX2 and LAD with no angiographically significan t appearing disease distal to the graft attachment 2nd Diagonal: Mid - Fills from the SUN sequential graft to the DX2 and LAD with no angiographically significant appearing disease distal to the graft attachment SUN sequential graft to the Mid LAD and DX2 is patent Saphenous Vein graft to the 1st OM is totally occluded (chronic) Saphenous Vein graft to the RCA is patent VALVE FINDINGS: Normal Aortic Valve function Mitral Valve Scalloping: Mild Mitral Valve Insufficiency - Trace AORTIC ROOT: Angiographically normal COMPLICATIONS No Complications PROCEDURE MEDICATIONS Versed 1 mg IV Oxygen: 2 L/min via nasal cannula Baby Aspirin (81mg) 1 Tabs PO @ 05/10/2018 09:14:09 SUMMARY OF HEMODYNAMIC DATA Time AIR REST ECG 09:21:46 AO 122/51 (77) SA 10:12:49 LV 141/2, 12 10:31:57 LV 129/1, 13 10:32:05 LV 113/0, 11 10:33:11 LV 115/0, 13 10:33:18 LVp 121/-6, 10 10:33:22 AOp 121/54 (80) 10:33:28 Signed By William Alvarez MD On 05/10/2018 11:12:10 William Alvarez MD
--- OUTSIDE RECORDS SUMMARY | 2018-06-26 07:17 | XMS RPT_ITS ---
:1935 Author Organization OHIP Support Name Relationship Address Phone DANIELLE JJA Unavailable [facility] [address] + [place] [address] JJ, BILL Unavailable Unavailable + [place] [address] R Unavailable Unavailable Unavailable JJ, SANTI Unavailable [facility] [address] + [place] [address] JJ, BILL Unavailable Unavailable + [place] [address] R Unavailable Unavailable Unavailable JJ, SANTI Unavailable [facility] [address] + [place] [address] JJ, BILL Unavailable . + [place] [address] R Unavailable Unavailable Unavailable JJ, SANTI Unavailable [facility] [address] + [place] [address] JJ, BILL Unavailable Unavailable + [place] [address] R Unavailable Unavailable Unavailable JJ, SANTI Unavailable [facility] [address] + [place] [address] JJ, BILL Unavailable Unavailable + [place] [address] R Unavailable Unavailable Unavailable JJ, SANTI Unavailable [facility] [address] + [place] [address] JJ, BILL Unavailable NA + [place], [place] R Unavailable Unavailable Unavailable JJ, SANTI Unavailable [facility] [address] + [place] [address] JJ, BILL Unavailable Unavailable + [place] [address] R Unavailable Unavailable Unavailable JJ, SANTI Unavailable [facility] [address] + [place] [address] JJ, BILL Unavailable NA + [place], [place] R Unavailable Unavailable Unavailable JJ, SANTI Unavailable [facility] [address] + [place] [address] JJ, BILL Unavailable NA + [place], [place] R Unavailable Unavailable Unavailable JJ, SANTI Unavailable [address] [place] [address] DR + [place] [address] JJ, BILL Unavailable NA + [place], [place] R Unavailable Unavailable Unavailable JJ, SANTI Unavailable [facility] + [place] [address] JJ, BILL Unavailable NA + [place], [place] R Unavailable Unavailable Unavailable JJ, SANTI Unavailable [facility] + [place] [address] R Unavailable Unavailable Unavailable JJ, SANTI Unavailable [address] [place] [address] + [place] [address] R Unavailable Unavailable Unavailable JJ, SANTI Unavailable NA + [place], [place] R Unavailable Unavailable Unavailable Care Team Providers Name Role Phone William Alvarez Attending Unavailable MoodispawWilliam Referring Unavailable [place], William Attending Unavailable MoodispawWilliam Referring Unavailable Lia, Jose Attending Unavailable Lia, Jose Primary Care Unavailable MoodispaWilliam phillips Referring Unavailable Mandie Riley Attending Unavailable Lia, Jose Referring Unavailable Lia, Jose Primary Care Unavailable Mandie Riley Attending Unavailable Mandie Riley Referring Unavailable Lia, Jose Primary Care Unavailable Moodispaalan, William Attending Unavailable Mandie Riley Referring Unavailable Mandie Miller Attending Unavailable Moodispaw, William Attending Unavailable LiaJose Referring Unavailable [place], William Attending Unavailable Moodisp[place], William Referring Unavailable Lia, Jose Primary Care Unavailable MoodispaWilliam phillips Attending Unavailable MoodispawWilliam Referring Unavailable Lia, Jose Primary Care Unavailable Moodisp[place], William Attending Unavailable Moodispaw, William Referring Unavailable Lia, Jose Primary Care Unavailable Moodisalexandraw, William Attending Unavailable Moodispaw, William Referring Unavailable Moodispaw, William Attending Unavailable MoodispawWilliam Referring Unavailable Lia, Jose Primary Care Unavailable Guanako Olivera Attending Unavailable Lia, Jose Referring Unavailable PROBLEMS PROBLEMS DATE TYPE CONDITION / CODE ATTENDING STATUS SOURCE Unknown I25.10 - Atherosclerotic [place], Active [place] heart disease of [place] [facility] coronary artery without Hospital angina pectoris / Repository I25.10(ICD-10) Unknown Z95.1 - Presence of [place], Active [employer] 8 aortocoronary bypass [facility] graft / Z95.1(ICD-10) Hospital Repository Unknown R06.00 - Dyspnea, [place], Active [employer] [facility] unspecified / [facility] R06.00(ICD-10) Hospital Repository Unknown R53.83 - Other fatigue / [place], Active [place] 8 R53.83(ICD-10) [facility] Hospital Repository Unknown I48.0 - Paroxysmal atrial [place], Active [place] fibrillation / [facility] I48.0(ICD-10) Hospital Repository Unknown I34.0 - Nonrheumatic [place], Active [employer] [facility] mitral (valve) [facility] insufficiency / Hospital I34.0(ICD-10) Repository Unknown E78.00 - Pure [place], Active [place] hypercholesterolemia, [facility] unspecified / Hospital E78.00(ICD-10) Repository Unknown E78.0 - Pure [place], Active [place] hypercholesterolemia / [facility] E78.0(ICD-10) Hospital Repository Unknown I49.1 - Atrial premature [place], Active [place] depolarization / [facility] I49.1(ICD-10) Hospital Repository Unknown I49.3 - Ventricular [place], Active [place] 8 premature depolarization [facility] / I49.3(ICD-10) Hospital Repository Unknown R00.1 - Bradycardia, [place], Active [employer] [facility] unspecified / [facility] R00.1(ICD-10) Hospital Repository Unknown I10 - Essential (primary) Jose Fitzgerald Active [place] hypertension / Community I10(ICD-10) Hospital Repository Unknown R25.2 - Cramp and spasm / Jose Fitzgerald Active [employer] 8 R25.2(ICD-10) [facility] Hospital Repository Unknown E78.5 - Hyperlipidemia, Lia, Jose Active [place] unspecified / Community E78.5(ICD-10) Hospital Repository Unknown 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 [place] [address] OFFICE VISIT Date of Service: 05/05/18 MR#: [id number] Acct: [id number] Name: SHAZIA JJ Rep #: [id number] : 1935 Provider: RADHA Olivera Age/Sex: 82/M Location: [facility] Status: Signed HPI HPI Details: SHAZIA JJ, [...] Vital Signs05/05/18 Height 5 ft 11 in 12/06/18 Weight: 200 lb 05/05/18 Body Mass Index (BMI) 27.8 05/05/18 Blood Pressure 108/64 Intake Visit Reasons: update H AND P Floor Attendant Required: No Accompanied by: None Is patient [...] atrial fibrillation (Acute) Atherosclerotic heart disease of [place] coronary artery without angina pectoris (Acute) Patent [...] diagnostic or therapeutic intervention especially of the [place] LCx/OM system. Final impression: 1. Mild elevation left ventricular end diastolic pressure 2. Left ventricle: A. Normal left ventricular size, wall motion, and systolic function B. Estimated LVEF 65% 3. Left main coronary: t . Angiographically normal 4. Left anterior descending coronary artery: A. Septal chemist assistant #1 with ostial 85% stenosis B. Septal chemist assistant #2 with ostial 85% stenosis C. The [...] portion filling from retrograde flow from the [place] bifurcating OM system SVG to the RCA system: A. Patent with no angiographically significant appearing disease 10. Mitral valve: A. Mild scalloping compatible with mild mitral valve prolapse Open heart surgery: 07/03/2003: [facility]: SUN to the diagonal branch sequencing to [...] pure hypercholesterolemia 05/05/18 1318 <Electronically signed by Guanako MARKS> Date Guanako MARKS Cosigner Signature: Date (if applicable) CC: Jose Fitzgerald DO CBC-COMPLETE BLOOD CNT Collected: 05/05/2018 Status: F Source: [place] NO DIFF 11:23 AM [facility] REPOSITORY TYPE CODE TESTS RESULT OUT [...] MPV 10.6 Performed By: #### L100.0500 #### [facility] [address] [place], [address] PROTHROMBIN TIME W/INR Collected: 05/05/2018 Status: F Source: [place] 11:20 AM [facility] REPOSITORY TYPE CODE TESTS RESULT OUT OF RANGE REFERENCE UNITS LAB L300.4150 11.7-14.9 SECONDS Normal PROTIME 14.1 LAB L300.4200 Normal INR 1.1 Performed By: #### L300.3900, L300.4310 #### [facility] [address] [place], [place], [address] PARTIAL THROMBOPLAST Collected: 05/05/2018 Status: F Source: [place] TIME 11:20 AM [facility] REPOSITORY TYPE CODE TESTS RESULT OUT OF RANGE REFERENCE UNITS LAB L300.4310 24.1-36.2 Seconds Normal PTT 33.7 Performed By: #### L300.3900, L300.4310 #### [facility] [address] [place], [address] BASIC METABOLIC Collected: 05/05/2018 Status: F Source: [place] PROFILE (BMP) 11:20 AM [facility] REPOSITORY TYPE CODE TESTS RESULT OUT [...] GAP 7 Performed By: #### L500.2500 #### [facility] [address] [place], [address] CHEST PA AND LATERAL Observed: 05/05/2018 Status: F Source: [place] 10:56 AM [facility] REPOSITORY [facility] [address] [place] [address] Chest PA and Lateral MR#: [id number] Acct: [id number] Name: SHAZIA JJ Rep #: [id number] : 1935 M 82 From: Hawk Abbott MD PCP: Jose Fitzgerald DO Status[facility] Study: Chest PA and Lateral Date of Exam: 05/05/18 Exam# [id number] Ordering Dr: William Alvarez MD STUDY: X-RAY [...] CC: Jose Fitzgerald DO; William Alvarez MD Assistant Statistician: Signed STRESS REPORT Observed: 04/26/2018 Status: F Source: [place] 1:12 PM [facility] REPOSITORY [facility] [place] [address] MR#: [id number] Acct: [id number] Name: SHAZIA JJ Rep #: [id number] : 1935 82 From: William Alvarez MD Primary Care: Jose Fitzgerald DO Status: REG CLI Ordering Dr: Timur: Florin Barton Stress Test Report Date: 06/26/2017 Procedure: [...] during exercise This note was generated with InspireMDation software. It may contain incorrect words, spelling, and punctuation that were not noted in checking the note before signing. 04/26/18 1312 <Electronically signed by William Alvarez MD> Date William Alvarez MD CC: Jose Fitzgerald DO; William Alvarez MD Date Dictated: 04/26/181308 Date Transcribed: 04/26/181308 Assistant Statistician: PM Signed ECHO, COMPLETE W/ Observed: 04/07/2018 Status: F Source: [place] CONTRAST 10:05 PM [facility] REPOSITORY [facility] [address] [place] [address] Echo Complete W/ Contrast 04/07/18 0751 MR#: [id number] Acct: [id number] Name: SHAZIA JJ Rep #: [id number] : 1935 82 From: William Alvarez MD Attending Dr: William Alvarez MD Status: REG CLI Ordering Dr: William Alvarez MD Date: 04/07/18 Location: [facility] Sex: M C Admitted: Reason For Study: [...] Physician: Jose Fitzgerald Performed By: Tosin Cruz, ELIDA, RVT 04/07/182204 Date William Alvarez MD CC: Jose Fitzgerald DO; William Alvarez MD Date Dictated: 04/07/18750 Date Transcribed: 04/07/182204 Assistant Statistician: Signed LIVER PROFILE Collected: 04/05/2018 Status: F Source: [place] 8:27 AM [facility] REPOSITORY TYPE CODE TESTS RESULT OUT [...] 0.07 Performed By: #### L500.3400, L500.4100 #### [facility] [address] [place], [address] LIPID PROFILE Collected: 04/05/2018 Status: F Source: [place] 8:27 AM [facility] REPOSITORY TYPE CODE TESTS RESULT OUT [...] 19 Performed By: #### L500.3400, L500.4100 #### [facility] [address] [place], [address] CARDIOLOGY VISIT Observed: 04/04/2018 Status: F Source: [place] REPORT 12:59 PM [facility] REPOSITORY [facility] [address] [place] [address] OFFICE VISIT Date of Service: 04/04/18 MR#: [id number] Acct: [id number] Name: SHAZIA JJ Rep #: [id number] : 1935 Provider: William Alvarez MD Age/Sex: 82/M Location: [facility] Status: Signed [facility] HPI Details: SHAZIA JJ is a 82 [...] QHS #90 tab 04/04/18 [Rx Confirmed 04/04/18] [facility] Medical History Non-rheumatic mitral regurgitation (Chronic) [...] diagnostic or therapeutic intervention especially of the [place] LCx/OM system. Final impression: 1. Mild elevation left ventricular end diastolic pressure 2. Left ventricle: A. Normal left ventricular size, wall motion, and systolic function B. Estimated LVEF 65% 3. Left main coronary: t . Angiographically normal 4. Left anterior descending coronary artery: A. Septal chemist assistant #1 with ostial 85% stenosis B. Septal chemist assistant #2 with ostial 85% stenosis C. The [...] portion filling from retrograde flow from the [place] bifurcating OM system SVG to the RCA system: A. Patent with no angiographically significant appearing disease 10. Mitral valve: A. Mild scalloping compatible with mild mitral valve prolapse Open heart surgery: 07/03/2003: [facility]: SUN to the diagonal branch sequencing to [...] AND Plan 1. 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.1 Premature atrial beat I49.1 Premature ventricular beat I49.3 Sinus bradycardia R00.1 Paroxysmal atrial fibrillation I48.0 Non-rheumatic mitral regurgitation I34.0 Patent foramen ovale Q21.1 Pure hypercholesterolemia E78.00 Hyperlipidemia type: pure hypercholesterolemia Essential hypertension I10 Coding Level of Care Code Off vis,est,level 4 Diagnoses Atherosclerotic heart disease of [place] coronary artery without angina pectoris I25.10 History [...] F Source: [place] PROFILE (BMP) 8:19 AM [facility] REPOSITORY TYPE CODE TESTS RESULT OUT [...] GAP 7 Performed By: #### L500.2500 #### [facility] [address] [place], [address] CBC W/DIFF, AUTOMATED Collected: 10/04/2017 Status: F Source: [place] 8:19 AM [facility] REPOSITORY TYPE CODE TESTS RESULT OUT [...] Lymph 1.52 Performed By: #### L100.0100 #### [facility] [address] [place], [place], [address] LIVER PROFILE Collected: 10/04/2017 Status: F Source: [place] 8:18 AM [facility] REPOSITORY Order Comment: Order Date: 04/09/17 Order Info: 0788-1 - *Hepatic Function Panel Order Info: [id number] - *Lipid Profile CC PCP Comments: 12 [...] BILI 0.09 Performed By: #### L500.3400 #### [facility] [address] [place], [place], [address] LIPID PROFILE Collected: 10/04/2017 Status: F Source: [place] 8:18 AM [facility] REPOSITORY Order Comment: Order Date: 04/09/17 Order Info: 0788-1 - *Hepatic Function Panel Order Info: [id number] - *Lipid Profile CC PCP Comments: 12 [...] VLDL 26 Performed By: #### L500.4100 #### [facility] [address] [place], [address] STRESS REPORT Observed: 07/06/2017 Status: F Source: [place] 10:28 AM [facility] REPOSITORY [facility] [address] [place], [place] [address] [address] MR#: [id number] Acct: [id number] Name: SHAZIA JJ Rep #: [id number] : 1935 81 From: William Alvarez MD [...] of 71%. This note was generated with Prosettaation software. Every effort was made to ensure accuracy, however, computerized physics faculty member mistakes may persist. 07/06/17 1028 <Electronically signed by William Alvarez MD> Date William Alvarez MD CC: Jose Riley Date Dictated: 07/06/17 1018 Date Transcribed: 07/06/17 1018 Assistant Statistician: PM Signed CARDIOLOGY VISIT Observed: 06/28/2017 Status: F Source: [place] REPORT 6:17 PM [facility] REPOSITORY [facility] [address] [place] [address] OFFICE VISIT Date of Service: 06/28/17 MR#: [id number] Acct: [id number] Name: SHAZIA JJ Rep #: [id number] : 1935 Provider: Mandie Riley Age/Sex: 81/M [place] [facility] Status: Signed HPI 6 M FU: Details: SHAZIA JJ is a 81 M who presents to [...] brachial Intake Visit Reasons: 6 M FU Floor Attendant Required: No Accompanied by: None Is patient [...] AND Plan 1. Coronary artery disease involving [place] coronary artery of [place] heart without angina pectoris I25.10 SUN sequence to Diag and LAD, SVC to RCA x2, SVG to Cx Plan - ALEXANDRA Henry Stable, from a cardiac standpoint patient does not have any symptoms of angina. We recommend that they continue with current aggressive medical management and risk factor modification. However it is been greater than 5 years since she has had any cardiac testing done, would like to obtain a pharmacologic nuclear stress test to evaluate underlying ischemia. Orders Orders: 2. Essential hypertension I10 ALEXANDRA Coto Blood pressure is well controlled on current medications, we do not recommend any changes at this time. 3. Pure hypercholesterolemia E78.00; E78.0 ALEXANDRA Coto Recent lipid profile demonstrates total cholesterol 153, HDL 49, LDL 74. Will continue with current medical management. 4. Patent foramen ovale Q21.1 ALEXANDRA Coto Patient does not have any hemodynamic issues. We will continue to monitor with echocardiograms as deemed appropriate. Plan Detail Other Medications New: Additional Comments - ALEXANDRA Henry In regards to patient's concern over [...] vis,est,level 4 Diagnoses Coronary artery disease involving [place] coronary artery of [place] heart without angina pectoris I25.10 Associated angina: without angina Coronary Disease-Associated Artery/Lesion type: [place] artery [place] vs. transplanted heart: [place] heart Essential hypertension I10 Pure hypercholesterolemia E78.00; E78.0 Hyperlipidemia type: pure hypercholesterolemia Patent foramen ovale Q21.1 06/28/17 1021 <Electronically signed by Mandie YIP> Date Mandie YIP 06/28/17 1817<Electronically signed by William Alvarez MD> Cosigner Signature: Date (if applicable) William Alvarez MD CC: Jose Fitzgerald DO ALLERGIES ALLERGIES DATE TYPE / CODE NAME / CODE REACTION SEVERITY SOURCE 05/09/2018 Drug No Known Unknown [facility] Allergy/4160 Allergies/F00 [facility] [address](SNOMED 9906315(RXNOR Repository CT) M) ENCOUNTERS ENCOUNTERS ADMIT/DISCHARGE ACCOUNT ADMITTING ENCOUNTER LOCATION SOURCE NUMBER CLASS 05/10/2018 [id number] Ambulatory BMSBuilding:W [facility] Repository 05/10/2018/ [id number] Ambulatory [facility] 4 [facility] Hospital ing:[facility] Repository 05/05/2018/ [id number] Ambulatory BMSBuilding:B [place] 1 [facility] Repository 04/26/2018 [id number] Ambulatory BMSBuilding:W [place] [facility] Repository 04/26/2018 [id number] Ambulatory [facility] Hospital ing:[facility] Repository 04/07/2018 [id number] Ambulatory [place] 6 [facility] Hospital ing:PSN Repository 04/07/2018 [id number] Ambulatory BMSBuilding:W [place] 1 [facility] Repository 04/05/2018 [id number] Ambulatory [place] 3 [facility] ing:MTLAB Repository 04/04/2018/ [id number] Ambulatory BMSBuilding:B [place] 4 [facility] Repository 03/31/2018 [id number] Ambulatory BMSBuilding:B [place] 1 [facility] Repository 10/04/2017 [id number] Ambulatory [place] [facility] Hospital ing:LAB.[facility]UTUR Repository E 07/06/2017 [id number] Ambulatory [facility] [place] 3 [facility] Hospital ing:[facility] Repository 07/06/2017 [id number] Ambulatory BMSBuilding:W [place] 4 [facility] Repository 06/28/2017/ [id number] Ambulatory BMSBuilding:B [place] 3 [facility] Repository PAYERS PAYERS ENCOUNTER GUARANTOR PAYER SUBSCRIBER SOURCE 05/10/2018 SHAZIA R Primary SHAZIA R [place] [id number] Insurance:[facility]: Community [place] [id number] Number: Repository [address]Ueh: 330 [id number] [phone] () Date:[id number] [address]BQ: 05/10/2018 Secondary NOT GIVENUNK [employer] [facility] Insurance:SELF PAY [facility] Number: Effective Repository Date:2018-05-10 05/10/2018 SHAZIA R Primary SHAZIA R [facility] [id number] [facility] [place] MED[place] [id number] Number: Repository [address]Tsw: 330 [id number] [phone] (HP) Date:2385-97-95[address] [facility] [place] [address]YR: 05/10/2018 Secondary NOT GIVENUNK [place] Insurance:SELF PAY [facility] Number: Effective Repository Date:2018-04-29 05/05/2018 SHAZIA R Primary SHAZIA R [place] [id number] Insurance:[facility]: Community [place] MED[place]ARE[place] [id number] Number: Repository [address]Gpr: 330 [id number] [phone] (HP) Date:7766-92-41PS [address] [place] [address]EF: 05/05/2018 Secondary NOT GIVENUNK [employer] Insurance:SELF PAY [facility] Number: Effective Repository Date:2018-05-05 04/26/2018 SHAZIA R Primary SHAZIA R [employer] [id number] Insurance:[facility]: Community [place] MEDICARE[place] [id number] Number: Repository [address]Pnu: 330 [id number] [phone] (HP) Date:4067-04-85GD [address] [place] [address]HS: 04/26/2018 Secondary NOT GIVENUNK [employer] Insurance:SELF PAY [facility] Number: Effective Repository Date:2018-04-26 04/26/2018 SHAZIA R Primary SHAZIA R [employer] [id number] Insurance:[facility]: Community [place] MEDICARE[place] [id number] Number: Repository [address]Feo: 330 [id number] [phone] (HP) Date:4522-81-65EX [address] [place] [address]IH: 04/26/2018 Secondary NOT GIVENUNK [place] Insurance:SELF PAY [facility] Number: Effective Repository Date:2018-04-13 04/07/2018 SHAZIA R Primary SHAZIA R [employer] [id number] [facility] Community [place] MED[place]ARE[place] [id number] Number: Repository [address]Ovg: 330 [id number] [phone] (HP) Date:5060-59-76FY [address] [address]JG: 04/07/2018 Secondary NOT GIVENUNK [employer] Insurance:SELF PAY [facility] Number: Effective Repository Date:2018-04-04 04/07/2018 SHAZIA R Primary SHAZIA R [employer] [id number] [facility] Community [place] MED[place]ARE[place] [id number] Number: Repository [address]Cmm: 330 [id number] [phone] () Date:8761-30-76RO [address] [address]WU: 04/07/2018 Secondary NOT GIVENUNK [employer] Insurance:SELF PAY [facility] Number: Effective Repository Date:2018-04-07 04/05/2018 SHAZIA R Primary SHAZIA R [place] [id number] [facility] Community [place] MEDICARE[place] [id number] Number: Repository [id number]: (330 [id number] [phone] (HP) Date:0458-71-38OK [address] [address]RC: 04/05/2018 Secondary NOT GIVENUNK [place] Insurance:SELF PAY [facility] Number: Effective Repository Date:2018-04-05 04/04/2018 SHAZIA R Primary SHAZIA R [place] [id number] [facility] Community [place] MEDICAREPolicy [id number] Number: Repository [id number]: 330 [id number] [phone] (HP) Date:[id number] [address]EVAm[place], [place] [address]RE: 04/04/2018 Secondary NOT GIVENUNK Jatinder Insurance:SELF PAY [facility] Number: Effective Repository Date:2018-04-04 03/31/2018 SHAZIA R Primary SHAZIA R [employer] [id number] [facility] [place]: Community [place] MED[place] [id number] Number: Repository [id number]: (330 [id number] [phone] () Date:[id number] [address]BA[place], [place] [address]YF: 03/31/2018 Secondary NOT GIVENUNK Jatinder Insurance:SELF PAY [facility] Number: Effective Repository Date:2018-03-31 10/04/2017 SHAZIA R Primary SHAZIA R [employer] [id number] [facility] Community [place] MED[place]ARE[place] [id number] Number: Repository [id number]: (330 [id number] [phone] () Date:[id number] [address] [place], [place] [address]RW: 10/04/2017 Secondary NOT GIVENUNK [employer] Insurance:SELF PAY [facility] Number: Effective Repository Date:2017-04-19 07/06/2017 SHAZIA R Primary SHAZIA R [employer] [id number] Insurance:[facility] [place]OB: Community [place] [id number] Number: Repository [id number]: 330 [id number] [phone] () Date:4643-08-26OF [address] [place], [place] [address]NV: 07/06/2017 Secondary NOT GIVENUNK [employer] Insurance:SELF PAY [facility] Number: Effective Repository Date:2017-06-28 07/06/2017 SHAZIA R Primary SHAZIA R [employer] [id number] Insurance:[facility] [place]OB: Community [place] MED[place]ARE[place] [id number] Number: Repository [address]Jrq: 330 [id number] [phone] () Date:[id number] [address] [place] [address]NG: 07/06/2017 Secondary NOT GIVENUNK [employer] Insurance:SELF PAY [facility] Effective Repository Date:2017-07-06 06/28/2017 SHAZIA R Primary SHAZIA R [place] [id number] Insurance:[facility]: Community [place] MED[place]ARE[place] [id number] Number: Repository [address]Qju: 330 [id number] [phone] () Date:[id number] [address] [place] [address]IU: 06/28/2017 Secondary NOT GIVENUNK [employer] Insurance:SELF PAY [facility] Number: Effective Repository Date:2017-05-03
== END 2018-05-10 14:55 | disposition home or self-care (01) ==
LOC: CLSP 08:50
PROVIDERS: Family Provider Family Medicine; PCP Family Medicine; Referring Provider Internal Medicine Cardiovascular Disease; Visit Provider Internal Medicine Cardiovascular Disease
DX: I25.10 Atherosclerotic heart disease of native coronary artery without angina pectoris (principal); I49.1 Atrial premature depolarization; I49.3 Ventricular premature depolarization; I34.0 Nonrheumatic mitral (valve) insufficiency; I48.0 Paroxysmal atrial fibrillation; I10 Essential (primary) hypertension; Q21.1 Atrial septal defect; E78.00 Pure hypercholesterolemia, unspecified; Z95.1 Presence of aortocoronary bypass graft; Z79.82 Long term (current) use of aspirin; Z79.899 Other long term (current) drug therapy; Z87.891 Personal history of nicotine dependence
CPT/HCPCS: 36415; 71046; 80048; 85027; 85610; 85730; 93459; 99152; 99153; J7040; Q9967; C1769; C1894

== ENCOUNTER 2019-01-03 08:11 | Day surgery (SDC) | payer MEDICARE, SELFPAY ==
[2018-11-30 09:12] VITALS: BMI 28.3
--- NOTE | 2019-01-02 18:25 | HP.PCM_ITS ---
History and Physical Date of Admission: 01/03/19 HISTORY OF PRESENT ILLNESS 83 year old man presents with a soft tissue mass on his nasal glabellar area that has increased in size over the last several months. It has developed some erythematous coloration and some firmness. He denies any infection. He denies fever. He denies any headaches or drainage from this mass. He denies visual problems. He has had skin cancer excised in the past. The lesion has developed some ulceration. He presents at this time for further evaluation and treatment. PAST MEDICAL HISTORY Second degree AV block, Mobitz type I Sinus bradycardia Premature ventricular contraction Premature atrial contractions Paroxysmal atrial fibrillation Atherosclerotic heart disease of [place] coronary artery without angina pectoris Patent foramen ovale Hyperlipidemia Essential hypertension Cataracts, bilateral Skin cancer Hx pulmonary embolism CAD (coronary artery disease) Mitral valve regurgitation PAST SURGICAL HISTORY coronary artery bypass surgery bladder surgery cholecystectomy transurethral resection of prostate patent foramen ovale closure ALLERGIES No Known Allergies MEDICATIONS aspirin finasteride fluticasone-salmeterol nitroglycerin hydrochlorothiazide isosorbide mononitrate ER losartan gabapentin pravastatin FAMILY HISTORY Father - CVA (cerebral vascular accident) Mother - Heart failure Brother - Myocardial infarction Brother - Cancer Sister - Heart disease, CAD (coronary artery disease) Daughter - Breast cancer SOCIAL HISTORY Smoking Status: Former smoker how long ago did patient quit smokin years ago alcohol intake: never substance use type: does not use REVIEW OF SYSTEMS General - Denies fever, fatigue, and weight loss. Eyes - Denies cataracts and glaucoma. ENT - Denies nasal congestion and sore throat. Endocrine - Denies excessive thirst and urination. Skin - Has personal history of skin cancer. Has enlarging soft tissue mass nasal glabellar area. Musculoskeletal - Denies joint pain, joint stiffness, weakness of muscles and joints, back pain, and arthritis. Neuro - Denies headaches. Cardiovascular - Denies chest pain, fatigue, and shortness of breath with exertion. Psych - Denies anxiety and depression. Respiratory - Denies chronic cough and shortness of breath. Gastrointestinal - Denies nausea, vomiting, diarrhea, and constipation. Hematologic - Denies abnormal bruising and bleeding. Genitourinary - Denies hematuria and urinary frequency. Has incontinence. PHYSICAL EXAMINATION General - Alert and Oriented. HEENT - PERRL. EOMI. Throat is clear. On the nasal glabellar area is a firm soft tissue mass that measures 2.2 cm. It had erythematous coloration which has faded a bit. Skin is adherent to the mass. Some ulceration seen. There is some extension into the left upper eyelid. It is mobile. No evidence of infection. No ulceration. Lesion is nontender. No other suspicious lesions noted. Neck - Supple and nontender. No cervical adenopathy. No suspicious lesions noted. Lungs - Clear to auscultation. Heart - Regular rate and rhythm. Abdomen - Soft and nondistended. Extremities - FROM. No axillary adenopathy. Radial pulses are palpable. No suspicious lesions noted. Neuro - CN II-XII grossly intact. Psych - Normal mood and affect. ASSESSMENT 1. 2.2 cm erythematous ulcerated soft tissue mass nasal glabellar area with some extension into the left upper eyelid. 2. Personal history of skin cancer. 3. Former smoker. PLAN This firm soft tissue mass is clinically consistent with a skin carcinoma. Recommend excision of this mass and send it to Pathology for analysis to rule out carcinoma. If carcinoma is present, then further excision will be done with skin flap and/or skin graft reconstruction. Depending on the size of the defect, a forehead flap may be needed. Because of its location on the nasal glabellar area, there is the possibility of a dermoid cyst. Cysts in this area can sometimes extend down to the nasal bones with possible communication with the dura. If so, then will limit the excision and proceed with a CT or an MRI to evaluate for communication with the dura. If so, then Neurosurgery evaluation would be necessary. Initial surgery can be done on an outpatient basis under local anesthesia and IV sedation. Patient is thinking about proceeding with the surgery in the Fall. He will let us know when he wants to proceed. Patient was informed of the risks and complications of the procedure including alternatives to surgery. These were discussed with the patient personally. Patient voices understanding and wishes to proceed. Some of the risks and complications were included in a form from the [employer].
--- NOTE | 2019-01-03 | LES_PTH ---
PATIENT: SHAZIA JJ [place] [facility] [id number] AGE/SX: 83/M ROOM: RE01/03/[address]: Dr. Sergey Redding MD : [id number] BED: DIS: 01/03/2019 SPEC #: [id number] RECD: 01/03/19 10:26 STATUS: PASCUAL DANIEL #: [id number] RAUL: 01/03/19 00:[address]: Sergey Redding DEPT: SURGICAL PATHOLOGY RECD BY: Gali Carlson ENTERED: 01/03/19 11:03 SP TYPE: Lesion OTHR DR: Dr. Jose Fitzgerald DO Tissues: A - Skin of nose, NOS B - Skin of nose, NOS Procedures: Frozen Section (charge) Frozen Section Add'l ([facility]) Surgery Specimen Level IV HEADER OPERATION: Excision lesion nasal glabellar area, frozen section PRE-OP DIAGNOSIS: 2 cm erythematous soft tissue mass nasal glabellar area, history of skin cancer TISSUE SUBMITTED: A - Nasal glabellar lesion for frozen section at 1018, B - Nasal glabellar basal cell carcinoma, suture at 12 o'clock FROZEN SECTION DIAGNOSIS A. Nasal glabellar lesion, biopsy: Basal cell carcinoma. SJ:thomas 01/03/19 MICROSCOPIC DIAGNOSIS A. Nasal glabellar lesion, biopsy: Basal cell carcinoma (1 cm in greatest width). B. Nasal glabellar basal cell carcinoma, excisional biopsy: Basal cell carcinoma, nodular type. Actinic keratosis and solar elastosis. See comment. :thomas 01/05/19 COMMENT B. The tumor measures 1.5 cm in greatest width and up to 0.8 cm in depth. The tumor also involves underlying skeletal muscle tissue. The tumor is focally present at the deep resection margin. The other resection margins are free of carcinoma. Clinical correlation and appropriate follow up are necessary. Results are reported to Dr. Redding's office on 01/05/19 Case has been reviewed in consultation with Dr. Bell who concurs with the above diagnosis. IDC:AM MICROSCOPIC DESCRIPTION Slides are reviewed. GROSS DESCRIPTION A - Received fresh for frozen section diagnosis labeled with the patient's name is a specimen designated nasal glabellar lesion. The specimen consists of a piece of falcon-white skin ellipse measuring 1.6 x 1.4 x 0.1 cm. A focal area of ulceration is noted on the surface measuring 0.5 cm in greatest dimension. The specimen is serially sectioned and submitted entirely for frozen section diagnosis in two cassettes. / :thomas 01/03/19 B - Received in fixative is one container labeled with the patient's name and designated nasal glabellar basal cell carcinoma, suture at 12 o'clock. The specimen consists of a round piece of falcon-white skin measuring 2.5 x 2.5 cm and up to 0.8 cm in thickness. The specimen is inked as follows: 12-3 o'clock - black, 3-6 o'clock - blue, 6-9 o'clock - green and 9-12 o'clock - yellow. The skin surface shows a focal area of ulceration measuring 2 x 1 cm. The specimen is serially sectioned and submitted entirely in four cassettes. / SJ:thomas 01/04/19 TC:0 [facility]: [id number] x2, [phone], [id number]
[2019-01-03 08:25] VITALS: BP 130/69; PULSE 49; RESP 16; TEMP 36.1; O2SAT 98; BMI 27.8
--- NOTE | 2019-01-03 12:20 | OP.PCM_ITS ---
Report of Operation Date of Procedure: 01/03/19 Pre-Operative Diagnosis: 1. 2.2 cm erythematous ulcerated soft tissue mass nasal glabellar area with extension to left upper eyelid. 2. Personal history of skin cancer. 3. Former smoker. Post-Operative Diagnosis: 1. 2.2 cm ulcerated basal cell carcinoma nasal glabellar area with extension to left upper eyelid. 2. Personal history of skin cancer. 3. Former smoker. Surgery/Procedure Performed:: Excision 2.2 cm ulcerated basal cell carcinoma nasal glabellar area with extension to left upper eyelid with FTSG reconstruction from left lateral neck (17.64 cm2). Description of Surgical Findings:: 83 year old man presents with a soft tissue mass on his nasal glabellar area that has increased in size over the last several months. It has developed some erythematous coloration and some firmness. He denies any infection. He denies fever. He denies any headaches or drainage from this mass. He denies visual problems. He has had skin cancer excised in the past. The lesion has developed some ulceration. Patient was informed of the risks and complications of the procedure including alternatives to surgery. These were discussed with the patient personally. Patient voices understanding and wishes to proceed. Some of the risks and complications were included in a form from the [place] [employer]. Frozen section nasal glabella with extension to left upper eyelid - basal cell carcinoma. Size of skin graft nasal glabellar area with extension to left upper eyelid - 4.2 x 4.2 cm. 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 Type of Anesthesia:: Local MAC - xylocaine with epinephrine and IV sedation. Specimen's removed: 1. Ulcerated lesion nasal glabella with extension to left upper eyelid to Pathology as a frozen section. 2. Ulcerated basal cell carcinoma nasal glabella with extension to left upper eyelid to Pathology. Drains: None. Estimated Blood Loss (mL): 25 ml. Description of Procedure: Patient was taken to OR in supine position and was given IV sedation. The face and neck were prepped and draped in the usual fashion. SCD's were placed for DVT prophylaxis. Perioperative antibiotics were given intravenously. The lesion nasal glabella with extension to left upper eyelid and the left neck area were infiltrated with xylocaine and epinephrine. After waiting 5 minutes for the anesthetic to take effect, I proceeded with an intradermal excision of the ulcerated nodular lesion nasal glabella with extension to left upper eyelid. The lesion was sent to Pathology for analysis to rule out carcinoma as a frozen section. Frozen section showed the lesion was a basal cell carcinoma. Therefore full thickness excision of this ulcerated basal cell carcinoma will be done with a 1 cm margin in all directions. This made it a 4.2 cm excision. The size of the nasal glabellar defect was 4.2 x 4.2 cm or 17.64 cm2. The full thickness excision extended to the underlying muscle and fascia as the underlying subcutaneous tissue was involved with the basal cell carcinoma. After excision, a suture was placed at 12 oclock position for pathology orientation. The lesion was sent to Pathology for analysis to rule out carcinoma at the margins. There was no more evidence of gross tumor remaining in the nasal glabellar defect as the remaining defect felt soft and smooth. However I anticipate that the deep margin will be positive and radiation therapy would be needed. I felt the residual defect was too large for a forehead flap. So I decided to place a FTSG in the nasal glabellar defect. I obtained the skin from the left neck by excising an elliptical piece of skin into the subcutaneous tissue. The subcutaneous tissue was removed from the undersurface of the dermis thus fashioning a full thickness skin graft. The skin graft was placed in saline. I closed the donor defect in the left neck after excising some subcutaneous tissue to aid in wound closure. Hemostasis was obtained with electrocautery. The wound was closed in a layered fashion with 5-0 Monocryl interrupted sutures for the deep dermis and subcutaneous tissue. The skin was approximated with 5-0 Prolene simple interrupted sutures. Antibiotic ointment was applied to the suture line followed by a gauze dressing. The full thickness skin graft was then placed on the nasal glabellar defect with extension onto the left upper eyelid. The graft was secured to the skin edge with 5-0 Chromic simple interrupted sutures. 5-0 Chromic interrupted sutures were placed for central quilting stabilization. Antibiotic ointment was applied to the skin graft followed by Xeroform gauze followed by cotton balls soaked in saline and secured to the skin using 4-0 Nylon tie over stent suture dressing. The size of the skin graft was 4.2 x 4.2 cm or 17.64 cm2. Patient tolerated the procedure well and was sent to PACU in satisfactory condition. Patient will be sent home on antibiotics and pain medication. Patient will keep his head elevated during the initial postop period. He will followup later this week on 01/06/19, for takedown of the skin graft dressing in order to evaluate the healing of the graft. Will also discuss the Pathology report as well. The donor incision sutures would be removed the following week. Grafts/Implants Used: None. - Complications None. - Admit VTE Documentation VTE Present on Admission: No VTE Mechan Device Prophylaxis: SCD's VTE Pharm Prophylaxis ordered?: No Code Visit Surgery Charges CPT - 71971 ICD-10 - C44.311, Z85.828, Z87.891 30239 C44.311, Z85.828, Z87.891
[2019-01-03 12:22] VITALS: BP 110/73; BP 130/68; PULSE 49; RESP 16; TEMP 36; O2SAT 100
[2019-01-03 12:27] VITALS: BP 100/66; BP 130/68; PULSE 43; RESP 14; O2SAT 100
--- NOTE | 2019-01-03 12:31 | DCINST_ITS ---
You will use the following diet at home:: No restrictions Discharge Activity: May not drive while taking narcotic pain medications., May Not Shower - until the skin graft dressing removed in the office., - - keep head elevated. no heavy lifting. May shower in (days): 4 - after the skin graft dressing is removed. May resume sexual activity in: No Restrictions Ice area for (Minutes): 5 - as needed for facial swelling. Weight Bearing Status: Weight bearing as tolerated Lifting Restrictions: 20 lbs. Keep extremity elevated above heart level: - - elevate head. Call your doctor if your incision/area has: Continuous Slow Oozing, Sudden Increased Bleeding, Increased Pain/ Swelling, Increased Redness, Foul Smelling Discharge, Swelling at the incision site Call your doctor if you observe: Fever of 101 or Higher, Coldness, Increased Pain, Shortness of breath, Chest pain, Calf discomfort, Uncontrolled pain Suture Line Care: - - after neck dressing removed in two days, apply antibiotic ointment to suture line daily. Change Dressing in (Days):: 2 - left neck dressing only. Remove Dressing in (days):: 3 - will remove skin graft dressing nasal glabella Cleanse incision/area with: - - may get incisions wet in the shower after the nasal glabellar skin graft removed. Allergies/Adverse Reactions: Allergies No Known Allergies Allergy (Verified 01/03/19 08:22) Medications to take at Discharge finasteride 5 mg tablet 5 mg PO QDAY 06/17/17 fluticasone 250 mcg-salmeterol 50 mcg/dose blistr powdr for inhalation 1 inh INHALATION BID ea 06/17/17 nitroglycerin 0.4 mg sublingual tablet 0.4 mg SUBLINGUAL Q5M PRN 06/17/17 hydrochlorothiazide 25 mg tablet 25 mg PO QDAY #90 tab 04/04/18 isosorbide mononitrate ER 60 mg tablet,extended release 24 hr 60 mg PO QDAY #90 tab 04/04/18 losartan 50 mg tablet 50 mg PO QDAY #90 tab 04/04/18 gabapentin 300 mg capsule 300 mg PO BID cap 05/05/18 pravastatin 20 mg tablet 20 mg PO QHS tab 05/05/18 Clindamycin HCl [Cleocin] 300 mg PO TID #15 cap 01/03/19 Lactobacillus Acidophilus/Fos [Acidophilus Probiotic Tablet] 1 ea PO BID #10 tab 01/03/19 Oxycodone HCl/Acetaminophen [Percocet 5/325] 1 tab PO Q4H PRN PRN 7 Days #40 tab 01/03/19 The following prescriptions were given: Lactobacillus Acidophilus/Fos [Acidophilus Probiotic Tablet] 1 ea PO BID #10 tab Prescription Printed Clindamycin HCl [Cleocin] 300 mg PO TID #15 cap Prescription Printed Oxycodone HCl/Acetaminophen [Percocet 5/325] 1 tab PO Q4H PRN PRN 7 Days #40 tab PRN Reason: Pain Prescription Printed Primary Care Physician: Jose Fitzgerald DO [Primary Care Provider] - Test Results: Test results from this visit will be discussed in further detail at your follow- up appointment, if applicable. Please Follow Up With: Sergey Redding MD When: wednesday01/06/19. call [phone] for appt. Proposed Discharge Date: 01/03/19
[2019-01-03 12:32] VITALS: BP 115/70; BP 130/68; PULSE 67; RESP 14; O2SAT 100
[2019-01-03 12:35] VITALS: BP 119/66; BP 130/68; PULSE 44; RESP 16; TEMP 36.2; O2SAT 98
[2019-01-03 13:17] VITALS: BP 130/68
== END 2019-01-03 13:17 | disposition home or self-care (01) ==
LOC: SDC 08:11 → AC 08:12
PROVIDERS: Family Provider Family Medicine; PCP Family Medicine; Referring Provider Surgery; Visit Provider Surgery
PROC: (CPT 11646; principal; 2019-01-03 09:30)
DX: C44.311 Basal cell carcinoma of skin of nose (principal); Z85.828 Personal history of other malignant neoplasm of skin; Z87.891 Personal history of nicotine dependence; E78.00 Pure hypercholesterolemia, unspecified; I44.1 Atrioventricular block, second degree; I10 Essential (primary) hypertension; I48.0 Paroxysmal atrial fibrillation; I25.10 Atherosclerotic heart disease of native coronary artery without angina pectoris; I49.1 Atrial premature depolarization; Z95.1 Presence of aortocoronary bypass graft; Z79.82 Long term (current) use of aspirin; Z79.899 Other long term (current) drug therapy
CPT/HCPCS: 11646; 15260; 88305; 88331; 88332; J7120

== ENCOUNTER 2019-01-09 00:57 | Emergency (ER) | payer MEDICARE, SELFPAY ==
[2019-01-06 17:00] VITALS: BMI 27.8
[2019-01-09 00:58] VITALS: BP 162/92; PULSE 54; RESP 16; TEMP 36.9; O2SAT 98; BMI 27.8
--- NOTE | 2019-01-09 01:36 | ED.VISSUMM ---
- ER Visit Summary Date of Service: 01/09/19 Chief Complaint: Rash History of Present Illness: The patient is a 83 M who presents with a rash. He had surgery last week for what they thought initially may be a cyst but turned out to be basal cell carcinoma. He was prescribed Percocet clindamycin and a probiotic. He only took a couple of Percocet shortly after surgery but has been taking clindamycin which she completed yesterday. Last night he developed a rash diffusely over his extremity and torso. This is pruritic. He used a topical Benadryl cream and also took an oral allergy pill which they are uncertain what specific medication this was. No fevers, vomiting, shortness of breath Physical Examination: Afebrile vitals unremarkable Heart regular rate and rhythm Lungs clear Abdomen soft Patient has a diffuse maculopapular rash over the trunk extremities and scalp which has a classic appearance for a drug rash. Test Results: Not indicated Emergency Department Course and Treatment: Patient presents with a rash which appears to be a reaction to the clindamycin. He actually has already completed this. He was advised to listed as an allergy and not take in the future. He was also given Benadryl and prednisone here as well as a prescription for for further days of prednisone. He understands to return for new or worsening symptoms. He was instructed on signs and symptoms to monitor for. All questions answered at bedside and patient was discharged Treatment Plan: [] Disposition: Discharge Impression: Allergic reaction to clindamycin This note was generated with [employer] dictation software. It may contain incorrect words, spelling, and punctuation that were not noted in review of the chart prior to signing ED Disposition - Plan for ED Patient: Referrals: Jose Fitzgerald DO [Primary Care Provider] -
--- NOTE | 2019-01-09 01:38 | ED.DEP ---
ED Disposition - Plan for ED Patient: Instructions: ALLERGIC REACTION, Drug Prescriptions: Prednisone [Deltasone] 60 mg PO DAILY #12 tab Prescription Printed Referrals: Jose Fitzgerald DO [Primary Care Provider] -
[2019-01-09] MEDS: DiphenhydrAMINE 25 MG Capsule PO (01:43)
[2019-01-09] MEDS: predniSONE 20 MG Tablet 60 MG PO (01:43)
[2019-01-09 01:45] VITALS: BP 156/75; PULSE 51; O2SAT 94
== END 2019-01-09 01:47 | disposition home or self-care (01) ==
PROVIDERS: Emergency Provider Emergency Medicine; Family Provider Family Medicine; PCP Family Medicine
DX: L27.1 Localized skin eruption due to drugs and medicaments taken internally (principal); T36.8X5A Adverse effect of other systemic antibiotics, initial encounter; I10 Essential (primary) hypertension; Z79.82 Long term (current) use of aspirin; Z79.899 Other long term (current) drug therapy
CPT/HCPCS: 99283

== ENCOUNTER → 2019-03-15 08:12 | Outpatient (CLI) | payer MEDICARE, SELFPAY ==
[2018-10-04 09:36] VITALS: BMI 28.3
[2019-01-31 12:56] VITALS: BMI 27.8
[2019-02-16 09:05] VITALS: BMI 27.8
[2019-03-15 10:13] LABS: Absolute Lymphocyte Count 1.99 X10^3/uL (0.83-4.51); Absolute Neutrophil Count 3.6 X10^3/uL (2.0-7.7); Basophil# 0.11 X10^3/uL; Basophil% 1.7 % (0-1); Eosinophil# 0.38 X10^3/uL; Eosinophils% 5.9 % (0-5); Hematocrit 46.2 % (40-54); Hemoglobin 15.2 g/dL (13.0-16.5); Lymphocyte # 1.99 X10^3/ul (4.0); Lymphocyte % 30.7 % (19-41); Mean Corp Hgb Conc 32.9 g/dL (32-36); Mean Corpuscular Hgb 30.3 pg (27.0-32.0); Mean Corpuscular Volume 92.2 fL (80-94); Mean Platelet Vol. 10.9 fl (6.2-12.0); Monocyte# 0.41 X10^3/uL; Monocyte% 6.3 % (0-10); NRBC Flagged by Analyzer 0 % (0-5); Neutrophil # 3.58 X10^3/uL (2.7-7.7); Neutrophil % 55.1 % (47-70); Platelet Count 206 K/mm3 (150-450); RBC Distribution Width CV 13.5 % (11.6-14.6); RBC Distribution Width SD 45.8 fl (35.1-43.9); Red Blood Count 5.01 M/mm3 (4.6-6.2); White Blood Count 6.5 K/mm3 (4.4-11.0)
[2019-03-15 10:24] LABS: ALB/GLOB Ratio 1.1 RATIO (0.9-2.4); AST(SGOT) 14 U/L (15-37); Alanine Aminotransfer ALT/SGPT 19 U/L (16-61); Albumin, Serum 3.5 g/dL (3.2-5.0); Alkaline Phosphatase 58 U/L (45-117); Anion Gap 5 (5-15); BUN 17 mg/dL (7-18); BUN/Creat Ratio 13.4 RATIO (10-20); Bilirubin, Direct 0.11 mg/dL (0.00-0.30); Calcium,Total 8.5 mg/dL (8.5-10.1); Chloride 105 mmol/L (98-107); Cholesterol 151 mg/dL (200); Creatinine, Serum 1.27 mg/dL (0.70-1.30); EST Glomerular Filtration Rate 58 mL/min (>60); Est Glom Filt Rate - Afr Amer 70 mL/min (>60); Globulin 3.1 g/dL (2.2-4.2); Glucose 106 mg/dL (74-106); High Density Lipoprotein 56 mg/dL; Potassium 3.7 mmol/L (3.5-5.1); Protein, Total 6.6 g/dL (6.4-8.2); Sodium Level 141 mmol/L (136-145); Triglycerides 71 mg/dL; Very Low Density Lipoprotein 14 mg/dL (5-40)
== END ==
PROVIDERS: Family Provider Family Medicine; PCP Family Medicine; Referring Provider Physician Assistant Medical; Visit Provider Physician Assistant Medical
DX: E78.00 Pure hypercholesterolemia, unspecified (principal); I25.10 Atherosclerotic heart disease of native coronary artery without angina pectoris; I10 Essential (primary) hypertension
CPT/HCPCS: 36415; 80053; 80061; 82248; 85025

== ENCOUNTER → 2019-12-15 08:09 | Outpatient (CLI) | payer MEDICARE, SELFPAY ==
[2019-01-31 12:56] VITALS: BMI 27.8
[2019-09-20 10:29] VITALS: BMI 28.7
[2019-12-15 10:15] LABS: AST(SGOT) 19 U/L (15-37); Alanine Aminotransfer ALT/SGPT 17 U/L (16-61); Albumin, Serum 3.8 g/dL (3.2-5.0); Alkaline Phosphatase 57 U/L (45-117); Bilirubin, Direct 0.15 mg/dL (0.00-0.30); Cholesterol 157 mg/dL (200); Globulin 3.2 g/dL (2.2-4.2); High Density Lipoprotein 54 mg/dL; Triglycerides 82 mg/dL; Very Low Density Lipoprotein 16 mg/dL (5-40)
== END ==
PROVIDERS: PCP Family Medicine; Referring Provider Internal Medicine Cardiovascular Disease; Visit Provider Internal Medicine Cardiovascular Disease
DX: E78.00 Pure hypercholesterolemia, unspecified (principal)
CPT/HCPCS: 36415; 80061; 80076

== ENCOUNTER → 2020-03-13 09:37 | Outpatient (CLI) | payer MEDICARE, SELFPAY ==
[2019-01-31 12:56] VITALS: BMI 27.8
[2019-12-26 11:30] VITALS: BMI 28.5
--- NOTE | 2020-03-13 09:41 | RAD_ITS ---
HISTORY: low back pain x 6 weeks, no injuryhx of bladder ca ADDITIONAL HISTORY: None provided. EXAMINATION/TECHNIQUE: XR Spine Lumbar Min 4 Views Number of images including paperwork: 5 COMPARISON: None FINDINGS: VERTEBRAE: No acute fracture. VERTEBRAL ALIGNMENT: No traumatic subluxation. Right convex lumbar curvature measuring about 15. DISKS AND JOINTS: Moderate to severe discogenic degenerative changes at L4-5. Mild to moderate discogenic degenerative changes elsewhere. Facet arthropathy. SOFT TISSUES: Vascular calcifications. RAD/L/S Spine Min 4 Views IMPRESSION: No acute findings. Lumbar spondylosis. at 2213 Reported and signed by: Isatu Sanches MD Electronically Signed: Isatu Sanches MD at 22:12 EDT Tel , Service support ,
== END ==
PROVIDERS: PCP Family Medicine; Referring Provider Family Medicine; Visit Provider Family Medicine
DX: M54.5 Low back pain (principal)
CPT/HCPCS: 72110

== ENCOUNTER → 2020-10-21 10:00 | Outpatient (CLI) | payer MEDICARE, SELFPAY ==
[2019-01-31 12:56] VITALS: BMI 27.8
[2020-09-30 10:21] VITALS: BMI 28.8
[2020-10-21 12:45] LABS: Absolute Lymphocyte Count 1.69 X10^3/uL (0.83-4.51); Absolute Neutrophil Count 3.6 X10^3/uL (2.0-7.7); Basophil# 0.11 X10^3/uL; Basophil% 1.8 % (0-1); Eosinophils% 4.9 % (0-5); Hematocrit 50.1 % (40-54); Lymphocyte # 1.69 X10^3/ul (0.83-4.51); Lymphocyte % 27.6 % (19-41); Mean Corp Hgb Conc 31.9 g/dL (32-36); Mean Corpuscular Hgb 29.3 pg (27.0-32.0); Mean Corpuscular Volume 91.6 fL (80-94); Monocyte# 0.38 X10^3/uL; Monocyte% 6.2 % (0-10); NRBC Flagged by Analyzer 0 % (0-5); Neutrophil # 3.63 X10^3/uL (2.7-7.7); Neutrophil % 59.2 % (47-70); Platelet Count 185 K/mm3 (150-450); RBC Distribution Width CV 13.8 % (11.6-14.6); RBC Distribution Width SD 46.8 fl (35.1-43.9); Red Blood Count 5.47 M/mm3 (4.6-6.2); White Blood Count 6.1 K/mm3 (4.4-11.0)
[2020-10-21 14:23] LABS: ALB/GLOB Ratio 1.1 RATIO (0.9-2.4); AST(SGOT) 21 U/L (15-37); Alanine Aminotransfer ALT/SGPT 23 U/L (16-61); Alkaline Phosphatase 56 U/L (45-117); Anion Gap 5 (5-15); BUN 18 mg/dL (7-18); BUN/Creat Ratio 14.5 RATIO (10-20); Bilirubin, Direct 0.18 mg/dL (0.00-0.30); Calcium,Total 9.3 mg/dL (8.5-10.1); Chloride 104 mmol/L (98-107); Cholesterol 157 mg/dL (200); Creatinine, Serum 1.24 mg/dL (0.70-1.30); EST Glomerular Filtration Rate 59 mL/min (>60); Est Glom Filt Rate - Afr Amer 71 mL/min (>60); Globulin 3.5 g/dL (2.2-4.2); Glucose 93 mg/dL (74-106); High Density Lipoprotein 61 mg/dL; PSA,Total - Annual Screen 1.61 ng/mL (0.00-4.00); Potassium 3.6 mmol/L (3.5-5.1); Protein, Total 7.5 g/dL (6.4-8.2); Sodium Level 137 mmol/L (136-145); Triglycerides 95 mg/dL; Very Low Density Lipoprotein 19 mg/dL (5-40)
== END ==
PROVIDERS: Internal Medicine Cardiovascular Disease; PCP Family Medicine; Referring Provider Family Medicine; Visit Provider Family Medicine
DX: I10 Essential (primary) hypertension (principal); E78.5 Hyperlipidemia, unspecified; I25.10 Atherosclerotic heart disease of native coronary artery without angina pectoris; E78.00 Pure hypercholesterolemia, unspecified; Z12.5 Encounter for screening for malignant neoplasm of prostate; Z95.1 Presence of aortocoronary bypass graft
CPT/HCPCS: 36415; 80053; 80061; 82248; 84153; 85025; G0103

== ENCOUNTER → 2021-01-14 | Outpatient (CLI) | payer MEDICARE, SELFPAY ==
[2019-01-31 12:56] VITALS: BMI 27.8
[2020-09-30 10:21] VITALS: BMI 28.8
[2021-01-14 18:52] LABS: Probe Check PASS; Specimen Processing Control PASS
== END | disposition home or self-care (01) ==
LOC: LABSPEC 15:54
PROVIDERS: PCP Family Medicine; Referring Provider Family Medicine; Visit Provider Family Medicine
DX: Z20.828 Contact with and (suspected) exposure to other viral communicable diseases (principal)
CPT/HCPCS: 87635; U0005; U0003

== ENCOUNTER 2021-01-18 14:12 | Inpatient (IN) | payer MEDICARE, SELFPAY ==
[2019-01-31 12:56] VITALS: BMI 27.8
[2021-01-18] VITALS (9 sets, daily range): BP systolic 128–145; BP diastolic 66–80; PULSE 73–88; RESP 15–24; TEMP 36.6–38.8; O2SAT 86–98; BMI 26.4; BMI 26.5
--- NOTE | 2021-01-18 14:48 | EKG12_ITS ---
Test Reason : SOB Blood Pressure : / mmHG Vent. Rate : 088 BPM Atrial Rate : 105 BPM P-R Int : 000 ms QRS Dur : 088 ms QT Int : 310 ms P-R-T Axes : 000 024 210 degrees QTc Int : [address] & T wave abnormality, consider inferior ischemia ST & T wave abnormality, consider anterolateral ischemia Abnormal ECG Confirmed by TALIB MAC, NIKO ([id number]), mapping editor ESTEFANÍA COBURN ([id number]) on 01/22/2021 9:02:17 AM Referred By: VINCE/PEBBLES Confirmed By:NIKO MAYERS MD
--- NOTE | 2021-01-18 14:49 | RAD_ITS ---
STUDY: X-RAY CHEST REASON FOR EXAM: Male, 85 years old. cough TECHNIQUE: 1 view COMPARISON: 05/05/2018 FINDINGS:Cardiomediastinal silhouette is unremarkable. Costophrenic angles are sharp. Lungs are clear. The trachea is midline. There is no pneumothorax. Sternotomy wires are grossly intact. 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 RAD/Chest 1 View (Portable) IMPRESSION: No acute cardiopulmonary process. Electronically Signed: Carlos Tello MD at 15:21 EDT Tel , Service support ,
--- NOTE | 2021-01-18 14:51 | ED.VIS.DYS ---
HPI History of Present Illness Chief Complaint: Shortness of Breath Informant: patient and spouse/S.O. Narrative Narrative: 85-year-old male presents to the emergency room with increased shortness of breath from Covid 19. Patient states that he has had symptoms for about a week. He notes that in the past several days he has started to produce some sputum. He notes increasing shortness of breath especially with exertion. He states he was originally tested at a urgent care. He has received both Covid vaccinations. He is supposed to receive monoclonal antibody infusion next week. 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 CAD (coronary artery disease) Cataracts, bilateral Complication of skin graft Essential hypertension Hx pulmonary embolism Mitral valve regurgitation Non-rheumatic mitral regurgitation Paroxysmal atrial fibrillation Patent foramen ovale Premature atrial contractions Premature ventricular contraction Pure hypercholesterolemia Scar contracture Second degree AV block, Mobitz type I Sinus bradycardia Skin cancer Home Medications fluticasone 250 mcg-salmeterol 50 mcg/dose blistr powdr for inhalation 1 inh INHALATION BID ea 06/17/17 [History Last Taken Unknown] aspirin 81 mg tablet,delayed release 81 mg PO DAILY 12/26/19 [History Last Taken Unknown] losartan 50 mg tablet 50 mg PO QDAY #90 tab 04/30/20 [Rx Last Taken Unknown] hydrochlorothiazide 25 mg tablet 25 mg PO QDAY #90 tab 05/08/20 [Rx Last Taken Unknown] gabapentin 300 mg capsule 900 mg PO BID cap 09/30/20 [History Last Taken Unknown] isosorbide mononitrate 60 mg tablet,extended release 24 hr 60 mg PO DAILY tab 09/30/20 [History Last Taken Unknown] nitroglycerin 0.4 mg sublingual tablet 0.4 mg SUBLINGUAL Q5-15M PRN #25 tab 09/30/20 [Rx Last Taken Unknown] pravastatin 20 mg tablet 20 mg PO QHS tab 09/30/20 [History Last Taken Unknown] Allergy/AdvReac Type Severity Reaction Status Date / Time clindamycin Allergy Rash Verified 01/18/21 14:13 Family History Father CVA (cerebral vascular accident) Mother Heart failure Brother Myocardial infarction Brother Cancer Sister Heart disease CAD (coronary artery disease) Daughter Breast cancer Surgical History History of basal cell carcinoma excision History of bladder surgery (~2011) History of cholecystectomy History of coronary artery bypass surgery (~07/03/03) History of prostate surgery History of transurethral resection of prostate (~1981) S/P CABG (coronary artery bypass graft) (~2003) Status post patent foramen ovale closure (~07/03/03) Social History Smoking Status: Former smoker how long ago did patient quit smokin years ago alcohol intake: never substance use type: does not use caffeine: Yes Type: coffee Number of servings: 3 what type of physical activity do you participate in: none seatbelt use: always do you feel safe at home: Yes additional social history: DOES USE ASPIRIN DOES NOT USE IBUPROFEN ROS ROS ED Constitutional Constitutional ED: Reports chills, fever(s) and sweats; Denies weight loss Eyes Eyes: Denies change in vision or diplopia ENT ENT ED: Denies ear pain, rhinorrhea or sore throat Cardiovascular Cardiovascular: Denies chest pain, orthopnea, palpitations or racing heartbeat Respiratory/Chest Respiratory/Chest: Reports cough, dyspnea, dyspnea on exertion and sputum; Denies orthopnea Gastrointestinal Gastrointestinal: Denies abdominal pain, diarrhea, nausea or vomiting Genitourinary Genitourinary ED: Denies dysuria, hematuria or urinary frequency Musculoskeletal Musculoskeletal: Reports myalgias; Denies arthralgias Integumentary Denies abscess or rash Neurologic Neurologic: Reports headache(s); Denies weakness Psychiatric Psychiatric: Denies anxiety, depression, suicidal ideation or suicidal thoughts Endocrine Endocrinology: Denies polydipsia, polyphagia or polyuria Allergic/Immunologic Allergic/Immunologic ED: Denies mouth swelling, tongue swelling or urticaria EXAM Physical Exam Const Vital Signs: 01/18/21 14:13 01/18/21 15:23 01/18/21 15:25 Temperature 101.9 F H Temperature Source Temporal Pulse Rate 87 88 Respiratory Rate 24 H 23 H Respiratory Effort Short of Breath Blood Pressure 145/70 H 134/67 H Blood Pressure Mean 95 89 Pulse Ox 93 95 Oxygen Delivery Method Room Air Nasal Cannula Room Air Oxygen Flow Rate (L/min) 2 01/18/21 17:06 Temperature Temperature Source Pulse Rate 81 Respiratory Rate 17 Respiratory Effort Blood Pressure 139/66 H Blood Pressure Mean 90 Pulse Ox 98 Oxygen Delivery Method Nasal Cannula Oxygen Flow Rate (L/min) 2 Positive well nourished and well developed General Appearance ED: well developed HEENT Reports normocephalic, head/scalp atraumatic and moist mucous membranes Eyes PERRL and EOMs intact bilaterally Neck no lymphadenopathy, supple and no JVD Resp normal respiratory effort Auscultation: rhonchi and wheezes Cardio regular rate, regular rhythm and no murmurs GI normal to inspection, nondistended, normoactive bowel sounds and non-tender Palpation: soft Back/Spine no CVA tenderness and normal ROM Extremity normal to inspection General Extremety ED: Negative for edema General Extremity: Negative for edema Neuro oriented x3 and CN's II-XII intact bilaterally Sensorium / Orientation: alert Motor Exam: strength 5/5 throughout Psych mental status grossly normal Mood & Affect: Negative for depressed or tearful Skin no rashes or lesions noted and no wounds MDM MDM MDM Narrative Medical decision making narrative: My interpretation of the chest x-ray is no acute process. White count 11.4. Creatinine 1.25. Procalcitonin is elevated 0.51. Troponin 14. CTA of the chest demonstrated no pulmonary embolism but infiltrative changes consistent with COVID-19. He received albuterol MDI as well as Decadron and Tylenol. Plan will be for admission as he is 86% on room air and requiring 3 L nasal cannula. Lab Data Attestation: I reviewed the patient's lab results. Labs: Laboratory Results - last 24 hr 01/18/21 01/18/21 01/18/21 15:15 15:15 15:15 WBC 11.4 H RBC 4.85 Hgb 14.6 Hct 44.9 MCV 92.6 MCH 30.1 MCHC 32.5 RDW Std Deviation 45.6 H RDW Coeff of Edi 13.4 Plt Count 206 MPV 11.0 Immature Gran % (Auto) 0.500 Neut % (Auto) 90.6 H Lymph % (Auto) 4.7 L [place] % (Auto) 3.6 Eos % (Auto) 0.3 Baso % (Auto) 0.3 Absolute Neuts (auto) 10.3 H Absolute Lymphs (auto) 0.54 L Nucleated RBC % 0 Differential Comment SEE COMMENT Platelet Estimate ADEQUATE RBC Morphology N CHROM Anisocytosis RARE Macrocytosis RARE Sodium 137 Potassium 3.8 Chloride 100 Carbon Dioxide 30.0 Anion Gap 7 BUN 26 H Creatinine 1.25 Estim Creat Clear Calc 46.85 Est GFR (MDRD) Af Amer 71 Est GFR (MDRD) Non-Af 59 L BUN/Creatinine Ratio 20.8 H Glucose 105 Lactic Acid Calcium 8.6 Total Bilirubin 1.50 H AST 23 ALT 25 Alkaline Phosphatase 98 Troponin I High Sens 14 Total Protein 7.5 Albumin 3.2 Globulin 4.3 H Albumin/Globulin Ratio 0.7 L Procalcitonin 0.51 H 01/18/21 15:15 WBC RBC Hgb Hct MCV MCH MCHC RDW Std Deviation RDW Coeff of Edi Plt Count MPV Immature Gran % (Auto) Neut % (Auto) Lymph % (Auto) [place] % (Auto) Eos % (Auto) Baso % (Auto) Absolute Neuts (auto) Absolute Lymphs (auto) Nucleated RBC % Differential Comment Platelet Estimate RBC Morphology Anisocytosis Macrocytosis Sodium Potassium Chloride Carbon Dioxide Anion Gap BUN Creatinine Estim Creat Clear Calc Est GFR (MDRD) Af Amer Est GFR (MDRD) Non-Af BUN/Creatinine Ratio Glucose Lactic Acid 1.7 Calcium Total Bilirubin AST ALT Alkaline Phosphatase Troponin I High Sens Total Protein Albumin Globulin Albumin/Globulin Ratio Procalcitonin Radiography Diagnostic Testing: Radiology Impression Chest X-Ray 01/18/21 14:49 IMPRESSION: No acute cardiopulmonary process. Electronically Signed: Carlos Tello MD at 15:21 EDT Tel , Service support , Chest CTA 01/18/21 15:50 IMPRESSION: Findings in keeping with known multifocal Covid 19 pneumonia bilaterally. No evidence of pulmonary embolism. Trace bilateral layering pleural effusions. Electronically Signed: Carlos Tello MD at 17:00 EDT Tel , Service support , EKG Initial EKG: Attestation: I personally reviewed and interpreted this EKG as follows: Comments: Atrial fibrillation with a ventricular rate of 88 bpm. Discharge Plan Dx/Rx/DC Orders Clinical Impression: COVID-19, Acute hypoxemic respiratory failure, Atrial fibrillation Disposition Disposition: Acute Care Hospital [facility]
[2021-01-18 15:32] LABS: Absolute Lymphocyte Count 0.54 X10^3/uL (0.83-4.51); Absolute Neutrophil Count 10.3 X10^3/uL (2.0-7.7); Basophil# 0.03 X10^3/uL; Basophil% 0.3 % (0-1); Eosinophil# 0.03 X10^3/uL; Eosinophils% 0.3 % (0-5); Hematocrit 44.9 % (40-54); Hemoglobin 14.6 g/dL (13.0-16.5); Lymphocyte # 0.54 X10^3/ul (0.83-4.51); Lymphocyte % 4.7 % (19-41); Mean Corp Hgb Conc 32.5 g/dL (32-36); Mean Corpuscular Hgb 30.1 pg (27.0-32.0); Mean Corpuscular Volume 92.6 fL (80-94); Monocyte# 0.41 X10^3/uL; Monocyte% 3.6 % (0-10); NRBC Flagged by Analyzer 0 % (0-5); Neutrophil # 10.31 X10^3/uL (2.7-7.7); Neutrophil % 90.6 % (47-70); POSITIVE DIFFERENTIAL YES; Platelet Count 206 K/mm3 (150-450); RBC Distribution Width CV 13.4 % (11.6-14.6); RBC Distribution Width SD 45.6 fl (35.1-43.9); Red Blood Count 4.85 M/mm3 (4.6-6.2); White Blood Count 11.4 K/mm3 (4.4-11.0)
[2021-01-18 15:35] LABS: Differential Indicated SCAN CRITERIA MET
[2021-01-18 15:47] LABS: ALB/GLOB Ratio 0.7 RATIO (0.9-2.4); AST(SGOT) 23 U/L (15-37); Alanine Aminotransfer ALT/SGPT 25 U/L (16-61); Albumin, Serum 3.2 g/dL (3.2-5.0); Alkaline Phosphatase 98 U/L (45-117); Anion Gap 7 (5-15); BUN 26 mg/dL (7-18); BUN/Creat Ratio 20.8 RATIO (10-20); Calcium,Total 8.6 mg/dL (8.5-10.1); Chloride 100 mmol/L (98-107); Creatinine, Serum 1.25 mg/dL (0.70-1.30); EST Glomerular Filtration Rate 59 mL/min (>60); Est Glom Filt Rate - Afr Amer 71 mL/min (>60); Estimated Creatinine Clearance 46.85 ml/min; Globulin 4.3 g/dL (2.2-4.2); Glucose 105 mg/dL (74-106); Potassium 3.8 mmol/L (3.5-5.1); Protein, Total 7.5 g/dL (6.4-8.2); Sodium Level 137 mmol/L (136-145); Troponin-I HS 14 pg/mL (3.0-78.0)
[2021-01-18 15:50] LABS: Procalcitonin 0.51 ng/mL (0.00-0.09)
--- NOTE | 2021-01-18 15:50 | CT_ITS ---
STUDY: CTA CHEST REASON FOR EXAM: Male, 85 years old. Shortness of breath, rule out out PE , COVID 19 RADIATION DOSAGE (If Supplied By Facility): CTDIvol = ( 12.39 ) mGy, DLP = ( 419.35 ) mGycm TECHNIQUE: The examination was performed with the intravenous administration of IV 100mL Isovue-370. Post-processing of the angiographic images was performed, with multiplanar reformation and 3D reconstruction. Individualized dose optimization techniques were used for this CT. COMPARISON: None. FINDINGS: No filling defect in the pulmonary arteries to suggest pulmonary embolism. Atherosclerosis of the thoracic aorta and coronary arteries noted. Prominent mediastinal lymph nodes measuring up to 1.6 x 1.0 cm in the right paratracheal region. These are likely reactive. No hilar or axillary adenopathy. Trace layering pleural effusions bilaterally. Emphysematous changes are noted in the bilateral lungs. There are a few small peripheral groundglass densities in the bilateral upper and lower lobes, in keeping with known Covid 19 pneumonia. Sections through the upper abdomen demonstrate calcified granulomas in the spleen. Multilevel thoracic spondylosis is noted. CT/CTA Chest W/WO Contrast IMPRESSION: Findings in keeping with known multifocal Covid 19 pneumonia bilaterally. No evidence of pulmonary embolism. Trace bilateral layering pleural effusions. Electronically Signed: Carlos Tello MD at 17:00 EDT Tel , Service support ,
[2021-01-18 15:52] LABS: Lactic Acid 1.7 mmol/L (0.4-1.9)
[2021-01-18 16:14] LABS: Anisocytosis RARE; Macrocytosis RARE; Platelet Estimate ADEQUATE (ADEQ); Red Cell Morphology N CHROM NORMAL (NORM C&C)
[2021-01-18] MEDS: Acetaminophen 500 MG Tablet 1000 MG PO (17:53)
[2021-01-18] MEDS: dexAMETHasone 4 MG Tablet 6 MG PO (17:53)
--- NOTE | 2021-01-18 17:57 | PCM.HP.STD ---
HPI - General General Date of Admission: 01/18/21 Date of Service: 01/18/21 Chief Complaint: shortness of breath HPI Narrative SHAZIA JJ, is a 85 M who presents with shortness of breath. Patient was diagnosed with COVID-19 the . Patient said he felt sick that day and tested positive. Patient was just progressively getting worse and short of breath. Patient feels he contracted it through his son and grandson are both positive for COVID-19. Patient has been vaccinated with Moderna vaccination. He has been coughing and having some productive sputum. [facility] Medical History Atherosclerotic heart disease of [place] coronary artery without angina pectoris Basal cell carcinoma of dorsum of nose CAD (coronary artery disease) Cataracts, bilateral Complication of skin graft Essential hypertension Hx pulmonary embolism Mitral valve regurgitation Non-rheumatic mitral regurgitation Paroxysmal atrial fibrillation Patent foramen ovale Premature atrial contractions Premature ventricular contraction Pure hypercholesterolemia Scar contracture Second degree AV block, Mobitz type I Sinus bradycardia Skin cancer Home Medications fluticasone 250 mcg-salmeterol 50 mcg/dose blistr powdr for inhalation 1 inh INHALATION BID ea 06/17/17 [History Last Taken Unknown] aspirin 81 mg tablet,delayed release 81 mg PO DAILY 12/26/19 [History Last Taken Unknown] losartan 50 mg tablet 50 mg PO QDAY #90 tab 04/30/20 [Rx Last Taken Unknown] hydrochlorothiazide 25 mg tablet 25 mg PO QDAY #90 tab 05/08/20 [Rx Last Taken Unknown] gabapentin 300 mg capsule 900 mg PO BID cap 09/30/20 [History Last Taken Unknown] isosorbide mononitrate 60 mg tablet,extended release 24 hr 60 mg PO DAILY tab 09/30/20 [History Last Taken Unknown] nitroglycerin 0.4 mg sublingual tablet 0.4 mg SUBLINGUAL Q5-15M PRN #25 tab 09/30/20 [Rx Last Taken Unknown] pravastatin 20 mg tablet 20 mg PO QHS tab 09/30/20 [History Last Taken Unknown] Allergy/AdvReac Type Severity Reaction Status Date / Time clindamycin Allergy Rash Verified 01/18/21 14:13 Family History Father CVA (cerebral vascular accident) Mother Heart failure Brother Myocardial infarction Brother Cancer Sister Heart disease CAD (coronary artery disease) Daughter Breast cancer Surgical History History of basal cell carcinoma excision History of bladder surgery (~2011) History of cholecystectomy History of coronary artery bypass surgery (~07/03/03) History of prostate surgery History of transurethral resection of prostate (~1981) S/P CABG (coronary artery bypass graft) (~2003) Status post patent foramen ovale closure (~07/03/03) Social History Smoking Status: Former smoker how long ago did patient quit smokin years ago alcohol intake: never substance use type: does not use caffeine: Yes Type: coffee Number of servings: 3 what type of physical activity do you participate in: none seatbelt use: always do you feel safe at home: Yes additional social history: DOES USE ASPIRIN DOES NOT USE IBUPROFEN ROS ROS Narrative Some chest pain and abdominal pain. Currently stable at this time. Feeling better with oxygen. All review of systems were negative except as mentioned above in the history of present illness and the other review of systems. Vital Signs Vital Signs Vital Signs: 01/18/21 14:13 01/18/21 15:23 01/18/21 15:25 Temperature 38.8 C H Temperature Source Temporal Pulse Rate 87 88 Respiratory Rate 24 H 23 H Respiratory Effort Short of Breath Blood Pressure 145/70 H 134/67 H Blood Pressure Mean 95 89 Pulse Ox 93 95 Oxygen Delivery Method Room Air Nasal Cannula Room Air Oxygen Flow Rate (L/min) 2 01/18/21 17:06 Temperature Temperature Source Pulse Rate 81 Respiratory Rate 17 Respiratory Effort Blood Pressure 139/66 H Blood Pressure Mean 90 Pulse Ox 98 Oxygen Delivery Method Nasal Cannula Oxygen Flow Rate (L/min) 2 Weight Weight: 86.183 kg Body Mass Index (BMI) 26.4 Physical Exam Const alert General Appearance: cooperative HEENT normocephalic and head/scalp atraumatic Neck no lymphadenopathy Resp Resp Narrative: Bibasilar crackles Cardio regular rate, regular rhythm, S1 normal heart sound and S2 normal heart sound GI normal to inspection, nondistended, normoactive bowel sounds, soft to palpation, non-tender and non-distended Extremity normal to inspection Skin no rashes or lesions noted Neuro Sensorium / Orientation: awake, alert and oriented to person Psych affect normal Results Lab / Micro Data Attestation: I reviewed the patient's lab results. Result Diagrams: 01/18/21 15:15 01/18/21 15:15 Labs: Laboratory Results - last 24 hr 01/18/21 15:15: Procalcitonin 0.51 H 01/18/21 15:15: WBC 11.4 H, RBC 4.85, Hgb 14.6, Hct 44.9, MCV 92.6, MCH 30.1, MCHC 32.5, RDW Std Deviation 45.6 H, RDW Coeff of Edi 13.4, Plt Count 206, MPV 11.0, Immature Gran % (Auto) 0.500, Neut % (Auto) 90.6 H, Lymph % (Auto) 4.7 L, [place] % (Auto) 3.6, Eos % (Auto) 0.3, Baso % (Auto) 0.3, Absolute Neuts (auto) 10.3 H, Absolute Lymphs (auto) 0.54 L, Nucleated RBC % 0, Differential Comment SEE COMMENT, Platelet Estimate ADEQUATE, RBC Morphology N CHROM, Anisocytosis RARE, Macrocytosis RARE 01/18/21 15:15: Sodium 137, Potassium 3.8, Chloride 100, Carbon Dioxide 30.0, Anion Gap 7, BUN 26 H, Creatinine 1.25, Estim Creat Clear Calc 46.85, Est GFR (MDRD) Af Amer 71, Est GFR (MDRD) Non-Af 59 L, BUN/Creatinine Ratio 20.8 H, Glucose 105, Calcium 8.6, Total Bilirubin 1.50 H, AST 23, ALT 25, Alkaline Phosphatase 98, Troponin I High Sens 14, Total Protein 7.5, Albumin 3.2, Globulin 4.3 H, Albumin/Globulin Ratio 0.7 L 01/18/21 15:15: Lactic Acid 1.7 EKG Initial EKG: Attestation: I personally reviewed and interpreted this EKG as follows: Prior EKG tracings: available for review EKG Rhythm Intrepretation: Sinus Rhythm Radiology Impression Chest X-Ray 01/18/21 14:49 IMPRESSION: No acute cardiopulmonary process. Electronically Signed: Carlos Tello MD at 15:21 EDT Tel , Service support , Chest CTA 01/18/21 15:50 IMPRESSION: Findings in keeping with known multifocal Covid 19 pneumonia bilaterally. No evidence of pulmonary embolism. Trace bilateral layering pleural effusions. Electronically Signed: Carlos Tello MD at 17:00 EDT Tel , Service support , Assessment & Plan Assessment/Plan (1) COVID-19: PLAN: 1. Acute COVID-19 pneumonia Date of onset was the 16. Patient has bibasilar patchy infiltrates consistent with COVID-19. Plan: Dexamethasone for total of 10 days Start remdesivir Rule out bacterial pneumonia but hold off on antibiotics at this time. Patient will need to quarantine for a total of 20 days after the 16th. 2. Acute hypoxic respiratory insufficiency Improved with oxygen Patient will require ambulatory pulse ox prior to discharge 3. CAD Stable Continue with statin and aspirin. 4. VTE prophylaxis: Low molecular rate heparin 5. CODE STATUS: Discussed with the patient. Patient wishes to be full CODE STATUS at this time. Charges/Coding Visit Charges Inpatient E&M: 47250 Init Hosp L3
[2021-01-18] MEDS: 0.9% Saline Lock 10 ML Syringe IV (20:34)
[2021-01-18] MEDS: Gabapentin 300 MG Capsule 900 MG PO (20:35)
[2021-01-18] MEDS: Pravastatin 20 MG Tablet PO (20:35)
[2021-01-19] VITALS (10 sets, daily range): BP systolic 124–142; BP diastolic 68–86; PULSE 59–91; RESP 18–20; TEMP 35.9–36.8; O2SAT 95–99
[2021-01-19] MEDS: 0.9% Saline Lock 10 ML Syringe IV (00:24)
[2021-01-19 06:52] LABS: Absolute Lymphocyte Count 0.35 X10^3/uL (0.83-4.51); Basophil# 0.01 X10^3/uL; Basophil% 0.1 % (0-1); Hematocrit 44.5 % (40-54); Hemoglobin 14.5 g/dL (13.0-16.5); Lymphocyte # 0.35 X10^3/ul (0.83-4.51); Lymphocyte % 3.7 % (19-41); Mean Corp Hgb Conc 32.6 g/dL (32-36); Mean Corpuscular Hgb 29.5 pg (27.0-32.0); Mean Corpuscular Volume 90.6 fL (80-94); Mean Platelet Vol. 11.2 fl (6.2-12.0); Monocyte# 0.14 X10^3/uL; Monocyte% 1.5 % (0-10); NRBC Flagged by Analyzer 0 % (0-5); Neutrophil # 9.04 X10^3/uL (2.7-7.7); Neutrophil % 94.3 % (47-70); POSITIVE DIFFERENTIAL YES; Platelet Count 190 K/mm3 (150-450); RBC Distribution Width CV 13.2 % (11.6-14.6); Red Blood Count 4.91 M/mm3 (4.6-6.2); White Blood Count 9.6 K/mm3 (4.4-11.0)
[2021-01-19 06:54] LABS: Differential Indicated SCAN CRITERIA MET
[2021-01-19 07:06] LABS: ALB/GLOB Ratio 0.7 RATIO (0.9-2.4); AST(SGOT) 21 U/L (15-37); Alanine Aminotransfer ALT/SGPT 23 U/L (16-61); Alkaline Phosphatase 98 U/L (45-117); Anion Gap 8 (5-15); BUN 28 mg/dL (7-18); BUN/Creat Ratio 24.8 RATIO (10-20); Calcium,Total 9.1 mg/dL (8.5-10.1); Chloride 101 mmol/L (98-107); Creatinine, Serum 1.13 mg/dL (0.70-1.30); EST Glomerular Filtration Rate 66 mL/min (>60); Est Glom Filt Rate - Afr Amer 80 mL/min (>60); Estimated Creatinine Clearance 51.83 ml/min; Globulin 4.3 g/dL (2.2-4.2); Glucose 163 mg/dL (74-106); Potassium 3.6 mmol/L (3.5-5.1); Protein, Total 7.3 g/dL (6.4-8.2); Sodium Level 137 mmol/L (136-145)
[2021-01-19 08:40] LABS: Differential Comment SCANNED
--- NOTE | 2021-01-19 09:06 | PCM.DC ---
Discharge Instructions Diet Discharge Diet: Low fat / Low cholesterol Activity Discharge Activity: Return to Normal Activity (Slowly ease back into her normal routine) Additional Activity Instructions:: Self isolate for at least 20 days since symptoms began (01/13-02/02/2021) AND at least one day (24 hours) have passed since resolution of fever without the use of fever-reducing agents AND improvement of symptoms (e.g., cough, shortness of breath) When around people in the same room, wear a face mask. Individuals also in the room should wear a mask. If possible, use a different bathroom and bedroom. Perform adequate hand hygiene. Avoid sharing dishes, glasses, etc. Dressing / Incision Call your doctor if you observe: Fever of 101 or Higher and Shortness of breath (worsening) Follow Up Care Test Results: Test results from this visit will be discussed in further detail at your follow-up appointment, if applicable. Discharge Plan Admission Admit Date/Time: 01/18/21 17:57 Primary Reason for Your Visit: COVID-19 Attending Provider: Jose A Mendoza Primary Care Provider: Jose Fitzgerald Discharge Orders/Prescriptions Prescriptions: New dexamethasone 2 mg Tablet 6 mg PO DAILY 9 Days Qty: 27 RF: 0 Continued gabapentin 300 mg capsule 900 mg PO BID RF: 0 aspirin 81 mg tablet,delayed release (DR/EC) 81 mg PO DAILY RF: 0 isosorbide mononitrate 60 mg tablet extended release 24 hr 60 mg PO DAILY RF: 0 pravastatin 20 mg tablet 20 mg PO QHS RF: 0 nitroglycerin [Nitrostat] 0.4 mg tablet, sublingual 0.4 mg SUBLINGUAL Q5-15M PRN (Reason: Pain) Qty: 25 RF: 2 losartan 50 mg tablet 50 mg PO QDAY Qty: 90 RF: 3 hydrochlorothiazide 25 mg tablet 25 mg PO QDAY Qty: 90 RF: 3 Held fluticasone propion-salmeterol [Advair Diskus] 250-50 mcg/dose blister with device 1 inh INHALATION BID RF: 0 Hold Instructions: Resume on 01/28/21. hold while on dexamethasone. Referrals / Follow Up: Jose Fitzgerald DO [Primary Care Provider] - Within 2 Weeks Disposition Disposition (needs filled in before D/C Order can be placed): Home, Self Care
--- NOTE | 2021-01-19 09:11 | PCM.DC.SUM ---
Providers Date of Admission: 01/18/21 Primary Care Physician: Dr. Jose Fitzgerald DO Reason For Visit: COVID 19 Diagnosis Discharge Diagnosis (1) COVID-19: Status: Acute Code(s): U07.1 - COVID-19 Medications at Discharge Home Medications fluticasone 250 mcg-salmeterol 50 mcg/dose blistr powdr for inhalation 1 inh INHALATION BID ea 06/17/17 aspirin 81 mg tablet,delayed release 81 mg PO DAILY 12/26/19 losartan 50 mg tablet 50 mg PO QDAY #90 tab 04/30/20 hydrochlorothiazide 25 mg tablet 25 mg PO QDAY #90 tab 05/08/20 gabapentin 300 mg capsule 900 mg PO BID cap 09/30/20 isosorbide mononitrate 60 mg tablet,extended release 24 hr 60 mg PO DAILY tab 09/30/20 nitroglycerin 0.4 mg sublingual tablet 0.4 mg SUBLINGUAL Q5-15M PRN #25 tab 09/30/20 pravastatin 20 mg tablet 20 mg PO QHS tab 09/30/20 dexamethasone 6 mg PO DAILY 9 Days #27 tab 01/19/21 Hospital Course Operations None Procedures None Summary of Care Provided Minutes Spent on Discharge: 32 Hospital Course: 1. Acute COVID-19 pneumonia Date of onset was the . Patient has bibasilar patchy infiltrates consistent with COVID-19. Patient has been vaccinated but was in contact with the son and grandson who both had Covid. Plan: Dexamethasone for total of 10 days Start remdesivir but will discontinue for discharge Patient will need to quarantine for a total of 20 days after the . 2. Acute hypoxic respiratory insufficiency Improved with oxygen Patient will require ambulatory pulse ox prior to discharge Performed amatory pulse ox in the room and patient's pulse ox maintained at 95% with good waveform. Patient advised to slowly return to his routine. Physical Exam Const alert and oriented x3 Constitutional Narrative: No respiratory distress. No conversational dyspnea. Oxygen turned off and pulse ox dropped down to 95 to 94%. Patient ambulated by having a March at bedside and his pulse ox remained at 95% with good waveform. Resp normal respiratory effort Resp Narrative: Bibasilar crackles Medical Records Data Attestation: I reviewed the patient's medical records Weight / BMI Weight Weight: 86.4 kg Body Mass Index (BMI) 26.5 ABG / Lab / Microbiology Data Result Diagrams: 01/19/21 06:16 01/19/21 06:16 Laboratory: Laboratory Results - last 24 hr 01/18/21 15:15: Procalcitonin 0.51 H 01/18/21 15:15: WBC 11.4 H, RBC 4.85, Hgb 14.6, Hct 44.9, MCV 92.6, MCH 30.1, MCHC 32.5, RDW Std Deviation 45.6 H, RDW Coeff of Edi 13.4, Plt Count 206, MPV 11.0, Immature Gran % (Auto) 0.500, Neut % (Auto) 90.6 H, Lymph % (Auto) 4.7 L, [place] % (Auto) 3.6, Eos % (Auto) 0.3, Baso % (Auto) 0.3, Absolute Neuts (auto) 10.3 H, Absolute Lymphs (auto) 0.54 L, Nucleated RBC % 0, Differential Comment SEE COMMENT, Platelet Estimate ADEQUATE, RBC Morphology N CHROM, Anisocytosis RARE, Macrocytosis RARE 01/18/21 15:15: Sodium 137, Potassium 3.8, Chloride 100, Carbon Dioxide 30.0, Anion Gap 7, BUN 26 H, Creatinine 1.25, Estim Creat Clear Calc 46.85, Est GFR (MDRD) Af Amer 71, Est GFR (MDRD) Non-Af 59 L, BUN/Creatinine Ratio 20.8 H, Glucose 105, Calcium 8.6, Total Bilirubin 1.50 H, AST 23, ALT 25, Alkaline Phosphatase 98, Troponin I High Sens 14, Total Protein 7.5, Albumin 3.2, Globulin 4.3 H, Albumin/Globulin Ratio 0.7 L 01/18/21 15:15: Lactic Acid 1.7 01/19/21 06:16: WBC 9.6, RBC 4.91, Hgb 14.5, Hct 44.5, MCV 90.6, MCH 29.5, MCHC 32.6, RDW Std Deviation 45.0 H, RDW Coeff of Edi 13.2, Plt Count 190, MPV 11.2, Immature Gran % (Auto) 0.400, Neut % (Auto) 94.3 H, Lymph % (Auto) 3.7 L, [place] % (Auto) 1.5, Eos % (Auto) 0.0, Baso % (Auto) 0.1, Absolute Neuts (auto) 9.0 H, Absolute Lymphs (auto) 0.35 L, Nucleated RBC % 0, Differential Comment SCANNED 01/19/21 06:16: Sodium 137, Potassium 3.6, Chloride 101, Carbon Dioxide 28.0, Anion Gap 8, BUN 28 H, Creatinine 1.13, Estim Creat Clear Calc 51.83, Est GFR (MDRD) Af Amer 80, Est GFR (MDRD) Non-Af 66, BUN/Creatinine Ratio 24.8 H, Glucose 163 H, Calcium 9.1, Total Bilirubin 0.80, AST 21, ALT 23, Alkaline Phosphatase 98, Total Protein 7.3, Albumin 3.0 L, Globulin 4.3 H, Albumin/Globulin Ratio 0.7 L Microbiology: Microbiology 01/19/21 05:15 Urine, Clean Catch Legionella Antigen - Final 01/19/21 05:15 Urine, Clean Catch Streptococcus pneumoniae Antigen (M - Final Radiography Diagnostic Testing: Radiology Impression Chest X-Ray 01/18/21 14:49 IMPRESSION: No acute cardiopulmonary process. Electronically Signed: Carlos Tello MD at 15:21 EDT Tel , Service support , Chest CTA 01/18/21 15:50 IMPRESSION: Findings in keeping with known multifocal Covid 19 pneumonia bilaterally. No evidence of pulmonary embolism. Trace bilateral layering pleural effusions. Electronically Signed: Carlos Tello MD at 17:00 EDT Tel , Service support , D/C Instructions Discharge Diet: Low fat / Low cholesterol Additional Activity Instructions: Self isolate for at least 20 days since symptoms began (01/13-02/02/2021) AND at least one day (24 hours) have passed since resolution of fever without the use of fever-reducing agents AND improvement of symptoms (e.g., cough, shortness of breath) When around people in the same room, wear a face mask. Individuals also in the room should wear a mask. If possible, use a different bathroom and bedroom. Perform adequate hand hygiene. Avoid sharing dishes, glasses, etc. Call your doctor if you observe: Fever of 101 or Higher and Shortness of breath (worsening) Meaningful Use Info Meaningful Use Diagnoses (Choose all that apply): None applicable Discharge Plan Admission Admit Date/Time: 01/18/21 17:57 Primary Reason for Your Visit: COVID-19 Attending Provider: Jose A Mendoza Primary Care Provider: Jose Fitzgerald Discharge Orders/Prescriptions Prescriptions: New dexamethasone 2 mg Tablet 6 mg PO DAILY 9 Days Qty: 27 RF: 0 Continued gabapentin 300 mg capsule 900 mg PO BID RF: 0 aspirin 81 mg tablet,delayed release (DR/EC) 81 mg PO DAILY RF: 0 isosorbide mononitrate 60 mg tablet extended release 24 hr 60 mg PO DAILY RF: 0 pravastatin 20 mg tablet 20 mg PO QHS RF: 0 nitroglycerin [Nitrostat] 0.4 mg tablet, sublingual 0.4 mg SUBLINGUAL Q5-15M PRN (Reason: Pain) Qty: 25 RF: 2 losartan 50 mg tablet 50 mg PO QDAY Qty: 90 RF: 3 hydrochlorothiazide 25 mg tablet 25 mg PO QDAY Qty: 90 RF: 3 Held fluticasone propion-salmeterol [Advair Diskus] 250-50 mcg/dose blister with device 1 inh INHALATION BID RF: 0 Hold Instructions: Resume on 01/28/21. hold while on dexamethasone. Referrals / Follow Up: Jose Fitzgerald DO [Primary Care Provider] - Within 2 Weeks Disposition Disposition (needs filled in before D/C Order can be placed): Home, Self Care Charges/Coding Visit Charges Inpatient E&M: 62024 Disch Hosp
[2021-01-19] MEDS: Enoxaparin 40 MG/0.4 ML Syringe SC (09:38)
[2021-01-19] MEDS: Gabapentin 300 MG Capsule 900 MG PO (09:38)
[2021-01-19] MEDS: dexAMETHasone 2 MG TABLET 6 MG PO (09:38)
[2021-01-19] MEDS: Aspirin E.C. 81 MG Tablet PO (09:39)
[2021-01-19] MEDS: Losartan Potassium 50 MG Tablet PO (09:39)
[2021-01-19] MEDS: hydroCHLOROthiazide 25 MG Tablet PO (09:39)
[2021-01-19] MEDS: Isosorbide Mononitrate 60 MG Tablet PO (09:39)
--- NOTE | 2021-01-20 12:35 | CASEMGMT ---
CAITLIN PRECIADO Discharge COVID Phone Call: JONY: Jamison Strata:2 Call Date: 01/20/21 Discharge Date: 01/19/21 Time of Call:1230 Duration:3 min Admitting Dx:COVID 19 CAITLIN PRECIADO completed follow up phone call after recent hospitalization for COVID 19. Pt states he is doing well. He states he is still coughing quite a bit. He is quarantining from his , using separate bedrooms and bathrooms. Pt does have family to bring in supplies and groceries. He is aware of his length of quarantine. Pt has a pulse ox and states it is reading between 90 and 90%. He was able to steel pickler his rx before being dc'd. Pt has not yet made his follow up appt with PCP, but will do so. Pt denies further questions regarding medications or dc instructions.
== END 2021-01-19 10:10 | disposition home or self-care (01) | DRG 177 ==
LOC: ED 17:41 → MS3 18:32
PROVIDERS: Emergency Provider Emergency Medicine; PCP Family Medicine
DX: U07.1 COVID-19 (principal); J12.82 Pneumonia due to coronavirus disease 2019; Q21.1 Atrial septal defect; R06.89 Other abnormalities of breathing; I25.10 Atherosclerotic heart disease of native coronary artery without angina pectoris; I10 Essential (primary) hypertension; I48.0 Paroxysmal atrial fibrillation; R09.02 Hypoxemia; Z86.711 Personal history of pulmonary embolism; Z87.891 Personal history of nicotine dependence; E78.00 Pure hypercholesterolemia, unspecified
CPT/HCPCS: 36415; 71045; 71275; 80053; 83605; 84145; 84484; 85025; 87040; 87449; 93005; 94667; 99251; 99285; J7050; Q9967; A4216; G0463

== ENCOUNTER 2021-01-20 14:25 | Outpatient (CLI) | payer MEDICARE, SELFPAY ==
[2019-01-31 12:56] VITALS: BMI 27.8
[2021-01-20] MEDS: 0.9% Saline Lock 10 ML Syringe IV (14:49)
[2021-01-20 14:54] VITALS: BP 106/57; PULSE 71; RESP 16; TEMP 37.1; O2SAT 93; BMI 26.4
--- NOTE | 2021-01-20 15:00 | NURSING ---
MONOCLONAL INFO SHEET GIVEN. REVIEWED WITH PT. PT VERBALIZED UNDERSTANDING.
[2021-01-20 15:35] VITALS: BP 117/63; PULSE 66; RESP 18; TEMP 36.6; O2SAT 97
[2021-01-20 16:26] VITALS: BP 123/60; PULSE 63; RESP 16; TEMP 36.9; O2SAT 96
== END 2021-01-20 16:35 | disposition home or self-care (01) ==
LOC: ICUOUT 14:25 → MS2 14:26
PROVIDERS: PCP Family Medicine; Referring Provider Nurse Practitioner Acute Care; Visit Provider Nurse Practitioner Acute Care
DX: Z23 Encounter for immunization (principal); U07.1 COVID-19
CPT/HCPCS: J7050; M0243; A4216; Q0244

== ENCOUNTER → 2021-01-27 13:21 | Outpatient (CLI) | payer MEDICARE, SELFPAY ==
[2019-01-31 12:56] VITALS: BMI 27.8
[2021-01-27 18:26] LABS: Probe Check PASS
== END ==
PROVIDERS: PCP Family Medicine; Referring Provider Family Medicine; Visit Provider Family Medicine
DX: U07.1 COVID-19 (principal)
CPT/HCPCS: 87635; U0005; U0003

== ENCOUNTER 2021-03-10 14:11 | Emergency (ER) | payer MEDICARE, SELFPAY ==
[2019-01-31 12:56] VITALS: BMI 27.8
[2021-03-10 14:12] VITALS: BP 167/102; PULSE 64; RESP 16; TEMP 36.8; O2SAT 95; BMI 27.2
--- NOTE | 2021-03-10 14:38 | RAD_ITS ---
STUDY: X-RAY - PELVIS REASON FOR EXAM: Male, 85 years old. Pain. TECHNIQUE: One view of the pelvis was obtained. COMPARISON: None. FINDINGS: There is no evidence of fracture or dislocation. There are mild degenerative changes in the hips. There are no radiodense foreign bodies. RAD/Pelvis 1 or 2 Views IMPRESSION: No fracture or dislocation in the pelvis. Mild degenerative changes in the hips. Electronically Signed: Vikram Saini MD at 15:43 EDT Tel , Service support ,
--- NOTE | 2021-03-10 14:41 | EDS_ITS ---
HPI History of Present Illness Chief Complaint: Back Informant: patient Onset/Context/Timing Onset: Days (7 days) Context: Gradual Onset Timing: Waxes and wanes Quality: Sharp, Aching and Throbbing Location: Lumbar (Left low lumbar paraspinal) Current Severity: Moderate Maximum Severity: Severe Worsened by: improves with Movement Associated Symptoms Associated Symptoms: Radiation to Left Leg; Negative for Urinary Retention and Urinary Incontinence Narrative Narrative: Patient presents secondary to low back pain. Patient states last Wednesday he was going golfing. When getting out of the golf cart he noted some slight pain in his left lower back and left thigh. He was able to finish his golf game but that evening noted increased pain. He was seen by his PCP on and started on Paxinos and Medrol Dosepak. Patient presents here stating that pain is not getting any better. No fever or chills. No problems with bowel or bladder control. There was no trauma or direct injury to his back. He does have a history of skin cancer. [facility] Medical History Atherosclerotic heart disease of [place] coronary artery without angina pectoris Atrial fibrillation Basal cell carcinoma of dorsum of nose CAD (coronary artery disease) Cataracts, bilateral Complication of skin graft Essential hypertension Hx pulmonary embolism Mitral valve regurgitation Non-rheumatic mitral regurgitation Paroxysmal atrial fibrillation Patent foramen ovale Premature atrial contractions Premature ventricular contraction Pure hypercholesterolemia Scar contracture Second degree AV block, Mobitz type I Sinus bradycardia Skin cancer Home Medications fluticasone 250 mcg-salmeterol 50 mcg/dose blistr powdr for inhalation 1 inh INHALATION BID ea 06/17/17 [History Last Taken 01/20/21] aspirin 81 mg tablet,delayed release 81 mg PO DAILY 12/26/19 [History Last Taken 01/20/21] losartan 50 mg tablet 50 mg PO QDAY #90 tab 04/30/20 [Rx Last Taken 01/20/21] hydrochlorothiazide 25 mg tablet 25 mg PO QDAY #90 tab 05/08/20 [Rx Last Taken 01/20/21] gabapentin 300 mg capsule 900 mg PO BID cap 09/30/20 [History Last Taken 01/20/21] isosorbide mononitrate 60 mg tablet,extended release 24 hr 60 mg PO DAILY tab 09/30/20 [History Last Taken 01/20/21] nitroglycerin 0.4 mg sublingual tablet 0.4 mg SUBLINGUAL Q5-15M PRN #25 tab 09/30/20 [Rx Last Taken Unknown] pravastatin 20 mg tablet 20 mg PO QHS tab 09/30/20 [History Last Taken Unknown] cyclobenzaprine 10 mg PO BID PRN #10 tab 03/10/21 [Rx Last Taken Unknown] hydrocodone-acetaminophen 1 tab PO Q6H PRN 3 Days #10 tab 03/10/21 [Rx Last Taken Unknown] lidocaine [Lidoderm] 1 patch TOPICAL DAILY #6 ea 03/10/21 [Rx Last Taken Unknown] prednisone 40 mg PO DAILY 4 Days #8 tab 03/10/21 [Rx Last Taken Unknown] Allergy/AdvReac Type Severity Reaction Status Date / Time clindamycin Allergy Rash Verified 01/18/21 14:13 Family History Father CVA (cerebral vascular accident) Mother Heart failure Brother Myocardial infarction Brother Cancer Sister Heart disease CAD (coronary artery disease) Daughter Breast cancer Surgical History History of basal cell carcinoma excision History of bladder surgery (~2011) History of cholecystectomy History of coronary artery bypass surgery (~07/03/03) History of prostate surgery History of transurethral resection of prostate (~1981) S/P CABG (coronary artery bypass graft) (~2003) Status post patent foramen ovale closure (~07/03/03) Social History Smoking Status: Former smoker how long ago did patient quit smokin years ago alcohol intake: never substance use type: does not use caffeine: Yes Type: coffee Number of servings: 3 what type of physical activity do you participate in: none seatbelt use: always do you feel safe at home: Yes additional social history: DOES USE ASPIRIN DOES NOT USE IBUPROFEN ROS ROS ED Constitutional Constitutional ED: Denies chills or fever(s) Eyes Eyes: Denies change in vision ENT ENT ED: Denies sore throat Cardiovascular Cardiovascular: Denies chest pain Respiratory/Chest Respiratory/Chest: Denies cough or dyspnea Gastrointestinal Gastrointestinal: Denies abdominal pain, diarrhea, nausea or vomiting Genitourinary Genitourinary ED: Denies dysuria Musculoskeletal Musculoskeletal: Reports back pain Integumentary Denies rash Neurologic Neurologic: Denies headache(s), paresthesias or weakness Allergic/Immunologic Allergic/Immunologic ED: Denies urticaria EXAM Physical Exam Const Vital Signs: 03/10/21 14:12 Temperature 98.2 F Temperature Source Temporal Pulse Rate 64 Respiratory Rate 16 Blood Pressure 167/102 H Blood Pressure Mean 123 Pulse Ox 95 Oxygen Delivery Method Room Air Positive well nourished and well developed General Appearance ED: well developed HEENT Reports normocephalic and head/scalp atraumatic Eyes PERRL and EOMs intact bilaterally Neck supple Chest Wall inspection of chest normal and palpation of chest normal Resp normal respiratory effort and clear to auscultation bilaterally Cardio regular rate and regular rhythm Cardio Narrative: Strong distal pulses throughout. GI normal to inspection, nondistended, normoactive bowel sounds Palpation: soft Back/Spine no CVA tenderness Back/Spine Narrative: Reproducible pain in the left low lumbar paraspinals and over the left sciatic notch. No midline tenderness. No erythema or excessive warmth. Extremity normal to inspection Neuro oriented x3 and no sensory deficits noted Sensorium / Orientation: alert Motor Exam: strength 5/5 throughout Psych mental status grossly normal Skin no rashes or lesions noted MDM MDM MDM Narrative Medical decision making narrative: Patient was given Paxinos and Flexeril here. Because the patient had a history of skin cancer lumbar spine and pelvis x-rays are is obtained. Treatment and Re-Evaluation Comments:: X-rays per my interpretation reveal chronic arthritic changes with no evidence of fracture or metastatic disease. He does have evidence of muscle spasm in the left lumbar paraspinals. Test results discussed with patient and at bedside. He has been on hydrocodone and a Medrol Dosepak that will finish today. Patient be given a prescription for Flexeril. He will also be given a burst of prednisone and Lidoderm patches. I will go ahead and write him for another short supply of hydrocodone as he only has approximately 6 pills left. Return instructions are provided. Discharge Plan Triage Chief Complaint: Back ED Provider: Cathy Aguilar Dx/Rx/DC Orders Clinical Impression: Back muscle spasm, Sciatica Instructions: ED Back Spasm, No Trauma, ED Sciatica Prescriptions: New hydrocodone-acetaminophen 5-325 mg tablet 1 tab PO Q6H PRN (Reason: pain) 3 Days Qty: 10 RF: 0 prednisone 20 mg tablet 40 mg PO DAILY 4 Days Qty: 8 RF: 0 lidocaine [Lidoderm] 5 % adhesive patch,medicated 1 patch topical DAILY Qty: 6 RF: 0 cyclobenzaprine 10 mg tablet 10 mg PO BID PRN (Reason: muscle spasm) Qty: 10 RF: 0 No Action fluticasone propion-salmeterol [Advair Diskus] 250-50 mcg/dose blister with device 1 inh INHALATION BID RF: 0 Hold Instructions: Resume on 01/28/21. hold while on dexamethasone. gabapentin 300 mg capsule 900 mg PO BID RF: 0 aspirin 81 mg tablet,delayed release (DR/EC) 81 mg PO DAILY RF: 0 isosorbide mononitrate 60 mg tablet extended release 24 hr 60 mg PO DAILY RF: 0 pravastatin 20 mg tablet 20 mg PO QHS RF: 0 nitroglycerin [Nitrostat] 0.4 mg tablet, sublingual 0.4 mg SUBLINGUAL Q5-15M PRN (Reason: Pain) Qty: 25 RF: 2 losartan 50 mg tablet 50 mg PO QDAY Qty: 90 RF: 3 hydrochlorothiazide 25 mg tablet 25 mg PO QDAY Qty: 90 RF: 3 Primary Care Provider: Jose Fiztgerald Referrals: Jose Fitzgerald DO [Primary Care Provider] - 5-7 Days Disposition Disposition: Home, Self Care
[2021-03-10] MEDS: HYDROcodone Bitartrate/Apap 5/325 Tablet PO (14:48)
[2021-03-10] MEDS: cycloBENZAPRine HCl 10 MG Tablet PO (14:48)
--- NOTE | 2021-03-10 14:55 | RAD_ITS ---
STUDY: X-RAY - LUMBAR SPINE REASON FOR EXAM: Male, 85 years old. Pain TECHNIQUE: 3 view(s) of the lumbar spine were obtained. COMPARISON: 03/13/20 FINDINGS: There is no evidence of fracture or dislocation in the lumbar spine. The vertebral body heights are well-maintained. There are stable moderate stable moderate multilevel degenerative changes with facet hypertrophy, disc space narrowing and osteophytes. There are vascular calcifications noted. RAD/Lumbar Spine 2 or 3 Views IMPRESSION: No fracture or dislocation in the lumbar spine. Stable degenerative change. Electronically Signed: Vikram Saini MD at 15:45 EDT Tel , Service support ,
== END 2021-03-10 16:09 | disposition home or self-care (01) ==
PROVIDERS: Emergency Provider Emergency Medicine; PCP Family Medicine
DX: M62.830 Muscle spasm of back (principal); M54.30 Sciatica, unspecified side; I25.10 Atherosclerotic heart disease of native coronary artery without angina pectoris; I10 Essential (primary) hypertension; E78.00 Pure hypercholesterolemia, unspecified; Z79.51 Long term (current) use of inhaled steroids; Z79.82 Long term (current) use of aspirin; Z85.828 Personal history of other malignant neoplasm of skin; Z86.711 Personal history of pulmonary embolism; Z87.891 Personal history of nicotine dependence; Z79.899 Other long term (current) drug therapy
CPT/HCPCS: 72100; 72170; 99283; A4216

== ENCOUNTER → 2021-04-02 07:56 | Outpatient (CLI) | payer MEDICARE, SELFPAY ==
[2019-01-31 12:56] VITALS: BMI 27.8
--- NOTE | 2021-04-02 08:30 | MRI_ITS ---
STUDY: MRI LUMBAR SPINE WITHOUT CONTRAST REASON FOR EXAM: Male, 85 years old. severe intractable LEFT sciatica, significant weakness on exam TECHNIQUE: Standardized fat and water weighted pulse sequences were obtained in the sagittal and axial planes. COMPARISON: X-ray 03/10/2021 FINDINGS: T12-L1: Normal endplates. Normal disc height, hydration and morphology. Normal bilateral facet joints. Normal central canal and bilateral lateral recesses. Normal bilateral intervertebral neural foramina. Normal lumbar lordosis. Mild dextroscoliosis centered at L3. Normal conus medullaris that terminates at the L1/L2. L1-2: Normal endplates. Normal disc height, hydration and morphology. Normal bilateral facet joints. Normal central canal and bilateral lateral recesses. Normal bilateral intervertebral neural foramina. L2-3: Normal endplates. Normal disc height, hydration and morphology. Normal bilateral facet joints. Normal central canal and bilateral lateral recesses. Normal bilateral intervertebral neural foramina. L3-4: Mild bilateral facet hypertrophy with fluid of facet joints consistent with instability. 2 mm retrolisthesis of L3 on L4 with a mild bilobed disc protrusion produces mild spinal stenosis, mild right lateral recess stenosis, moderate left lateral recess stenosis with abutment of the left L4 nerve root, mild right neural foraminal stenosis and severe left neural foraminal stenosis with a left foraminal protrusion producing effacement of the left L3 nerve root laterally. L4-5: Mild bilateral facet hypertrophy and ligament flavum hypertrophy. 2 mm retrolisthesis of L4 and L5 with a mild broad disc protrusion produces mild spinal stenosis, moderate right lateral recess stenosis with abutment of the right L5 nerve root, mild left lateral recess stenosis, severe right neural foraminal stenosis with effacement of the right L4 nerve root and moderate left neural foraminal stenosis. L5-S1: Mild bilateral facet hypertrophy and ligament flavum hypertrophy. Mild broad disc protrusion produces mild spinal stenosis with mild bilateral lateral recess stenosis and severe right neural foraminal stenosis with effacement of the right L5 nerve root laterally. Normal visualized sacral ala. Normal visualized paraspinous soft tissue structures. MRI/Spine Lumbar (Routine) IMPRESSION: Mild dextroscoliosis with degenerative disc disease as described above. Electronically Signed: Adrian Posadas MD at 13:39 EDT Tel , Service support ,
== END ==
PROVIDERS: PCP Family Medicine; Referring Provider Family Medicine; Visit Provider Family Medicine
DX: M54.16 Radiculopathy, lumbar region (principal)
CPT/HCPCS: 72148

== ENCOUNTER → 2021-04-22 08:27 | Outpatient (CLI) | payer MEDICARE, SELFPAY ==
[2019-01-31 12:56] VITALS: BMI 27.8
[2021-04-22 10:22] LABS: AST(SGOT) 12 U/L (15-37); Alanine Aminotransfer ALT/SGPT 14 U/L (16-61); Albumin, Serum 3.4 g/dL (3.2-5.0); Alkaline Phosphatase 51 U/L (45-117); Bilirubin, Direct 0.18 mg/dL (0.00-0.30); Cholesterol 145 mg/dL (200); Globulin 3.2 g/dL (2.2-4.2); High Density Lipoprotein 52 mg/dL; Protein, Total 6.6 g/dL (6.4-8.2); Triglycerides 101 mg/dL; Very Low Density Lipoprotein 20 mg/dL (5-40)
== END ==
PROVIDERS: PCP Family Medicine; Referring Provider Internal Medicine Cardiovascular Disease; Visit Provider Internal Medicine Cardiovascular Disease
DX: E78.00 Pure hypercholesterolemia, unspecified (principal)
CPT/HCPCS: 36415; 80061; 80076

== ENCOUNTER 2021-04-29 10:00 | Outpatient (RCR) | payer MEDICARE, SELFPAY ==
[2019-01-31 12:56] VITALS: BMI 27.8
--- NOTE | 2021-04-10 13:57 | HP.PTEVAL ---
Patient's Visit Information SHAZIA JJ is a 85 year old M referred to Physical Therapy by Dr. Jose Fitzgerald DO with a diagnosis of L4 nerve root compression. Date of Evaluation: 04/10/21 Physical Therapist: Enoc Morales, PT, ATC - Visit Plan Frequency: 1-2x /Week Duration: 2 Weeks Plan: Issue and instruct pt on HEP over next 2 visits for l/s stab ex's - Subjective Pt reports he had LBP approximately 2 months ago the radiated down to his L hip. Pt reports that pain has actually gone away now, but notes he has pain in his L hip region that radiates down to his L anterior delgado. Pt notes he had xrays and an MRI which revealed he has DDD and OA. Pt reports he has never had pain like this before. Pt reports he has sleep difficulty secondary to pain. Pt notes he was golfing when this problem first arose. Pt reports prolonged ambulation and standing increases his pain. Pt also notes sitting for a long time also increases his pain. Pt notes that this limits his ability to drive far distances. 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 2/10 pain at rest, 10/10 pain at worst - Pain L LE Pain Intensity (Out of 10): 2 Pain Intensity Range: 10 - Objective Neuro: B LE sensation is WNL to light touch. B achilles reflex= 1/3. LE MMT: R LE is 5/5 throughout. L LE is grossly 4-/5 throughout. LE ROM: B LE's are WFL. Gait: Pt is able to ambulate 240' until needing to rest secondary to pain - Balance/Special Test Scores Lower Extremity Functional Score: 21 - Goals Goal 1:: I with HEP 3-4 visits Goal Time Frame: 2-4 Weeks - Rehabilitation Potential Physical Therapy Diagnosis: Pt has L LE weakness, pain and difficulty with ambulation secondary to DDD Rehabilitation Potential: Good - Anticipated Interventions Patient/Client Instruction: Educate patient on: Condition, Plan of Care For the Purpose of:: To improve self management Therapeutic Exercise to Include: Strength training, Body mechanics, Flexibilty training, Active ROM, Dynamic Lumbar Stabilization For the Purpose of:: To decrease pain, To improve muscle performance and motor function Thank you for the opportunity to evaluate your patient. For Medicare and Medicare HMO plans, please review the plan of care and approve it. It will need to be FAXED BACK to us at [phone] for Medicare purposes. For Medicare only, by signing this I certify the plan of care. Please let me know if there are questions or concerns regarding this plan of care. Physician Signature: Date:
--- NOTE | 2021-06-16 11:04 | HP.PT.NRP ---
SHAZIA JJ was seen in my office for initial evaluation on 04/10/21. The following Plan of Care was established for this patient: Initial Frequency: 1-2x /Week Initial Duration: 2 Weeks Patient/Client Instruction: Educate patient on: Condition, Plan of Care For the Purpose of:: To improve self management Therapeutic Exercise to Include: Strength training, Body mechanics, Flexibilty training, Active ROM, Dynamic Lumbar Stabilization For the Purpose of:: To decrease pain, To improve muscle performance and motor function This patient was last seen in our office . Pertinent comments regarding their Physical therapy will appear below: Pt was treated for 3 PT visits for LBP through the date of 04/29/21. Pt has not returned today and is therefore discontinued at this time. At this point I will be discontinuing this patient from physical therapy. I would be happy to see this patient again in the future if found appropriate by the physician. Thank you! Enoc Morales, PT, ATC Balance/Gait/Functional tests - Balance/Special Test Scores Lower Extremity Functional Score: 21
== END 2021-04-29 19:00 | disposition home or self-care (01) ==
LOC: PT 10:00
PROVIDERS: PCP Family Medicine; Referring Provider Family Medicine; Visit Provider Family Medicine
DX: M79.605 Pain in left leg (principal); G54.8 Other nerve root and plexus disorders
CPT/HCPCS: 97110; 97161

== ENCOUNTER → 2021-04-30 06:58 | Outpatient (CLI) | payer MEDICARE, SELFPAY ==
[2019-01-31 12:56] VITALS: BMI 27.8
--- NOTE | 2021-04-30 14:48 | STRESSREP ---
Stress Test Report Date: 04-30-2021 Procedure: Pharmacologic stress nuclear imaging study Indications: Chest pain; CAD; CABG; sinus bradycardia; paroxysmal atrial fibrillation; PVCs Consent: Per the patient Procedure: The patient underwent pharmacologic (Regadenoson 0.4mg ) evaluation with a peak heart rate of 71 beats per minute (52%predicted maximal heart rate) and a peak blood pressure of 130/70 mmHg. The baseline ECG demonstrated atrial fibrillation with slow ventricular response; nonspecific ST/T wave abnormality. The peak pharmacologic ECG demonstrated no obvious ECG changes. There were no cardiac dysrhythmias pretest, during pharmacologic infusion, or recovery. There was no complaint of chest discomfort during pharmacologic infusion or recovery. The examination was discontinued secondary to completion of protocol. Impression: 1. Pharmacologic (Regadenoson) evaluation 2. Peak pharmacologic ECG with no obvious ECG changes. 3. There were no cardiac dysrhythmias pretest, during pharmacologic infusion, or recovery. 4. Nuclear images pending Myocardial perfusion imaging study: Technique: The patient was injected with 11.7 millicuries of technetium 99m Cardiolite and subsequently rest SPECT Cardiolite nuclear imaging was obtained in the horizontal long, vertical long, and short axis views. The patient underwent pharmacologic (Regadenoson) evaluation with a peak heart rate of 71 beats per minute (52% percent predicted maximal heart rate) and a peak blood pressure of 130/70 mmHg. The patient was injected with 33.9 millicuries of technetium 99m Cardiolite and subsequently stress SPECT Cardiolite nuclear imaging was obtained in the horizontal long, vertical long, and short axis views. A gated Cardiolite study at peak stress was not obtained. Interpretation: Rest and stress SPECT Cardiolite nuclear imaging status post realignment, normalization, and attenuation correction demonstrate relative uniform tracer uptake and myocardial perfusion appearing within normal limits. Impression: 1. Rest and stress SPECT Cardiolite nuclear imaging demonstrate relative uniform tracer uptake and myocardial perfusion appearing within normal limits. 2. The gated Cardiolite study was not obtained. This note was generated with Next 2 Greatnessation software. It may contain incorrect words, spelling, and punctuation that were not noted in checking the note before signing.
== END ==
PROVIDERS: PCP Family Medicine; Referring Provider Nurse Practitioner Gerontology; Visit Provider Nurse Practitioner Gerontology
DX: R07.89 Other chest pain (principal); Z95.1 Presence of aortocoronary bypass graft
CPT/HCPCS: 78452; 93017; A9500; A4216; J2785

== ENCOUNTER → 2021-10-14 | Outpatient (CLI) | payer MEDICARE, SELFPAY ==
[2019-01-31 12:56] VITALS: BMI 27.8
[2021-10-14 12:32] LABS: Absolute Lymphocyte Count 1.38 X10^3/uL (0.83-4.51); Absolute Neutrophil Count 4.3 X10^3/uL (2.0-7.7); Basophil% 1.6 % (0-1); Eosinophils% 3.1 % (0-5); Hematocrit 49.3 % (40-54); Hemoglobin 15.9 g/dL (13.0-16.5); Lymphocyte # 1.38 X10^3/ul (0.83-4.51); Lymphocyte % 21.4 % (19-41); Mean Corp Hgb Conc 32.3 g/dL (32-36); Mean Corpuscular Hgb 30.1 pg (27.0-32.0); Mean Corpuscular Volume 93.4 fL (80-94); Mean Platelet Vol. 11.3 fl (6.2-12.0); Monocyte# 0.49 X10^3/uL; Monocyte% 7.6 % (0-10); NRBC Flagged by Analyzer 0 % (0-5); Neutrophil # 4.25 X10^3/uL (2.7-7.7); Platelet Count 213 K/mm3 (150-450); RBC Distribution Width CV 13.6 % (11.6-14.6); RBC Distribution Width SD 46.5 fl (35.1-43.9); Red Blood Count 5.28 M/mm3 (4.6-6.2); White Blood Count 6.4 K/mm3 (4.4-11.0)
[2021-10-14 12:53] LABS: Anion Gap 5 (5-15); BUN 23 mg/dL (7-18); BUN/Creat Ratio 18.1 RATIO (10-20); Calcium,Total 8.8 mg/dL (8.5-10.1); Chloride 106 mmol/L (98-107); Creatinine, Serum 1.27 mg/dL (0.70-1.30); EST Glomerular Filtration Rate 57 mL/min (>60); Est Glom Filt Rate - Afr Amer 69 mL/min (>60); Glucose 87 mg/dL (74-106); Potassium 3.7 mmol/L (3.5-5.1); Sodium Level 141 mmol/L (136-145)
[2021-10-14 12:56] LABS: BNP,B-Type NATRIURETIC PEPTIDE 94.3 pg/mL (0-100)
== END | disposition home or self-care (01) ==
LOC: LAB 10:57
PROVIDERS: Nurse Practitioner Gerontology; PCP Family Medicine; Visit Provider Nurse Practitioner Adult Health
DX: R06.00 Dyspnea, unspecified (principal)
CPT/HCPCS: 36415; 80048; 83880; 85025

== ENCOUNTER → 2021-11-10 | Outpatient (CLI) | payer MEDICARE, SELFPAY ==
[2019-01-31 12:56] VITALS: BMI 27.8
--- NOTE | 2021-11-10 08:42 | ECHOCS_ITS ---
Reason For Study: Dyspnea/SOB Procedure This was a 2D Doppler, Color Flow transthoracic echocardiogram. The study was technically difficult. Contrast injection was performed. Exam performed in department. Left Ventricle Normal LV size. Left ventricular systolic function is normal. The estimated ejection fraction is 65 %. Unable to assess diastolic dysfunction. No regional wall motion abnormalities noted. Right Ventricle Normal RV size. Normal systolic function. Atria The left atrium is mildly enlarged. Normal right atrium. The previous transthoracic echocardiogram from 04-07-2018 demonstrated a positive agitated saline contrast study for a right to left interatrial shunt c/w a PFO vs. ASD. Mitral Valve There is mild mitral annular calcification. Normal mitral valve. Mild (1+) mitral valve insufficiency. Tricuspid Valve Normal tricuspid valve. Mild tricuspid valve insufficiency. Right ventricular systolic pressure estimated to be 30 mmHg. Aortic Valve Normal aortic valve. Moderate focal aortic valve calcification. Mild (1+) aortic valve insufficiency. Pulmonic Valve The pulmonic valve is not well visualized. Trivial pulmonic valve insufficiency. Great Vessels Normal sized aortic root. Calcified aortic root. Pericardium/Pleural No pericardial effusion. Medication 22 gauge I.V. with prn adaptor inserted into right arm. Diluted definity 2.5ml given slow IV push to enhance endocardial definition. MMode/2D Measurements & Calculations LVIDd: 4.9 cm IVSd: 1.3 cm LVOT diam: 1.9 cm LVIDs: 3.3 cm LVPWd: 1.1 cm FS: 32.9 % LVOT area: 2.9 cm2 Ao root diam: 3.9 cm LAV(MOD-bp): 63.6 ml LA A4 area: 21.1 cm2 LA dimension: 5.0 cm LAV(MOD-bp) Indexed: 30.8 ml/m2 LAV(MOD-sp2): 70.0 ml LAV(MOD-sp4): 61.7 ml RA A4 area: 16.7 cm2 Doppler Measurements & Calculations MV E max nathalia: 115.2 cm/sec Ao V2 max: 161.0 cm/sec LV V1 max: 86.6 cm/sec Ao max P.4 mmHg LV V1 max P.2 mmHg PAOLO(V,D): 1.6 cm2 PA V2 max: 100.2 cm/sec TR max nathalia: 258.4 cm/sec TR max P.7 mmHg ECHO/Echo Complete W/ Contrast Interpretation Summary The study was technically difficult. Contrast injection was performed. Left ventricular systolic function is normal. The estimated ejection fraction is 65 %. The left atrium is mildly enlarged. There is mild mitral annular calcification. Mild (1+) mitral valve insufficiency. Mild tricuspid valve insufficiency. Moderate focal aortic valve calcification. Mild (1+) aortic valve insufficiency. Trivial pulmonic valve insufficiency. Calcified aortic root. Right ventricular systolic pressure estimated to be 30 mmHg. Unable to assess diastolic dysfunction. The previous transthoracic echocardiogram from 04-07-2018 demonstrated a positiv e agitated saline contrast study for a right to left interatrial shunt c/w a PFO vs. ASD. Ordering Physician: Courtney Sarah Referring Physician: Jose Fitzgerald Performed By: Pancho Jama RCS
== END | disposition home or self-care (01) ==
PROVIDERS: PCP Family Medicine; Referring Provider Nurse Practitioner Gerontology; Visit Provider Nurse Practitioner Gerontology
DX: R00.1 Bradycardia, unspecified (principal); I44.1 Atrioventricular block, second degree; R06.00 Dyspnea, unspecified
CPT/HCPCS: 93225; 93226; 93306; Q9957; A4216; C8929

== ENCOUNTER 2021-12-11 14:11 | Observation (INO) | payer MEDICARE, SELFPAY ==
[2019-01-31 12:56] VITALS: BMI 27.8
--- NOTE | 2021-12-09 11:05 | RAD_ITS ---
STUDY: X-RAY CHEST REASON FOR EXAM: Male, 86 years old. Pre-op pacemaker implantation. TECHNIQUE: PA and lateral views of the chest. COMPARISON: 01/18/2021. FINDINGS: The lungs are clear and expanded. There is no demonstrated pleural abnormality. Sternal cerclage wires are present from a prior sternotomy. The heart is normal in size. Normal mediastinum and ray. Normal visualized pulmonary arteries. Normal visualized aortic arch and descending thoracic aorta. There are diffuse degenerative changes of the visualized thoracic spine. Normal visualized ribs, clavicles, and shoulders. There is no demonstrated abnormality of the visualized soft tissue structures of the upper abdomen. RAD/Chest PA and Lateral IMPRESSION: Evidence of prior median sternotomy. There is no acute cardiopulmonary disease. Electronically Signed: Del Kern DO at 23:11 EDT ,
[2021-12-09 11:23] LABS: Bacteria 0 SEEN /hpf (None Seen); Mucous, Urine 0 SEEN /hpf (<or=2+)
[2021-12-09 12:36] LABS: Hematocrit 45.8 % (40-54); Hemoglobin 14.8 g/dL (13.0-16.5); Mean Corp Hgb Conc 32.3 g/dL (32-36); Mean Corpuscular Hgb 30.3 pg (27.0-32.0); Mean Corpuscular Volume 93.9 fL (80-94); Mean Platelet Vol. 11.4 fl (6.2-12.0); Platelet Count 185 K/mm3 (150-450); RBC Distribution Width SD 48.4 fl (35.1-43.9); Red Blood Count 4.88 M/mm3 (4.6-6.2); White Blood Count 7.1 K/mm3 (4.4-11.0)
[2021-12-09 12:42] LABS: International Normalized Ratio 1.4; Prothrombin Time (Protime)PT. 16.5 SECONDS (11.7-14.9)
[2021-12-09 12:54] LABS: Color, Urine Yellow (Yellow); Glucose, Dipstick Normal (Normal); Ketone-Dipstick Negative (Negative); Leukocyte Esterase-Dipstick 100 /ul (Negative); Nitrite-Dipstick Negative (Negative); Occult Blood-Urine 10 /ul (Negative); Protein-Dipstick 15 mg/dl (Negative); Urine Bilirubin Dipstick Negative (Negative); Urine Clarity Sl. Cloudy (Clear); Urine Urobilinogen Normal (Normal)
[2021-12-09 13:04] LABS: Red Blood Cells-Urine 0-5 SEEN /hpf (0-5); Squamous Epithelial Cells - UA 0-5 SEEN /hpf (0-5); White Blood Cells 10-25 SEEN /hpf (0-5)
[2021-12-09 13:33] LABS: Anion Gap 6 (5-15); BUN 21 mg/dL (7-18); BUN/Creat Ratio 17.9 RATIO (10-20); Calcium,Total 9.1 mg/dL (8.5-10.1); Chloride 105 mmol/L (98-107); Creatinine, Serum 1.17 mg/dL (0.70-1.30); EST Glomerular Filtration Rate 63 mL/min (>60); Est Glom Filt Rate - Afr Amer 76 mL/min (>60); Glucose 105 mg/dL (74-106); Potassium 4.1 mmol/L (3.5-5.1); Sodium Level 139 mmol/L (136-145)
[2021-12-10 11:43] VITALS: BMI 27.9
[2021-12-11] VITALS (20 sets, daily range): BP systolic 107–153; BP diastolic 60–73; PULSE 50–63; RESP 9–23; TEMP 35.6–36.6; O2SAT 94–99
[2021-12-11] MEDS: Albuterol 2.5 MG/3 ML VIAL.NEB. INHALATION ×2 (14:08→19:20)
[2021-12-11] MEDS: Gabapentin 300 MG Capsule 900 MG PO ×2 (15:27→21:32)
[2021-12-11] MEDS: Budesonide Respules 0.5 MG/2 ML AMPUL.NEB. INHALATION (19:20)
[2021-12-11] MEDS: Acetaminophen 325 MG Tablet 650 MG PO (21:26)
[2021-12-11] MEDS: Pravastatin 20 MG Tablet PO (21:27)
[2021-12-12] VITALS (11 sets, daily range): BP systolic 122–139; BP diastolic 63–77; PULSE 49–65; RESP 12–24; TEMP 36.5–36.6; O2SAT 94–98
[2021-12-12 04:37] LABS: Hematocrit 41.1 % (40-54); Hemoglobin 13.3 g/dL (13.0-16.5); Mean Corp Hgb Conc 32.4 g/dL (32-36); Mean Corpuscular Volume 92.6 fL (80-94); Mean Platelet Vol. 11.1 fl (6.2-12.0); Platelet Count 174 K/mm3 (150-450); RBC Distribution Width CV 13.7 % (11.6-14.6); RBC Distribution Width SD 46.9 fl (35.1-43.9); Red Blood Count 4.44 M/mm3 (4.6-6.2); White Blood Count 7.7 K/mm3 (4.4-11.0)
[2021-12-12 04:50] LABS: International Normalized Ratio 1.2; Partial Thromboplast Time 36.8 Seconds (24.1-36.2); Prothrombin Time (Protime)PT. 15.2 SECONDS (11.7-14.9)
[2021-12-12] MEDS: Gabapentin 300 MG Capsule 900 MG PO (05:13)
[2021-12-12 05:31] LABS: Anion Gap 7 (5-15); BUN 21 mg/dL (7-18); BUN/Creat Ratio 19.8 RATIO (10-20); Calcium,Total 8.3 mg/dL (8.5-10.1); Chloride 108 mmol/L (98-107); Creatinine, Serum 1.06 mg/dL (0.70-1.30); EST Glomerular Filtration Rate 71 mL/min (>60); Est Glom Filt Rate - Afr Amer 85 mL/min (>60); Estimated Creatinine Clearance 52.61 ml/min; Glucose 111 mg/dL (74-106); Potassium 4.2 mmol/L (3.5-5.1); Sodium Level 141 mmol/L (136-145)
[2021-12-12] MEDS: Budesonide Respules 0.5 MG/2 ML AMPUL.NEB. INHALATION (06:59)
[2021-12-12] MEDS: Albuterol 2.5 MG/3 ML VIAL.NEB. INHALATION (06:59)
--- NOTE | 2021-12-12 08:05 | NURSING ---
Pt bedrest completed per Dr. Perez at 0730 once stopcock was removed. Pt up and ambulated in room with RN present. Following ambulation, groin site checked. Soft to touch, no pain or hematoma noted. Dressing C/D/I. Pt up to chair.
--- NOTE | 2021-12-12 08:16 | PCM.PN.CARD ---
Subjective Subjective Patient seen and evaluated. Appears to be doing well. Status post pacemaker implantation yesterday. Objective Data Vital Signs: Vital Signs Temp Pulse Resp BP Pulse Ox O2 Del Method 97.9 F 50 L 15 127/66 H 98 Room Air 12/12/21 02:00 12/12/21 07:00 12/12/21 07:00 12/12/21 07:00 12/12/21 07:00 12/12/21 07:00 Oxygen Delivery Method Room Air Weight: 195 lb Body Mass Index (BMI) 27.9 Intake & Output: Intake and Output for Last 24 Hours 12/10/21 12/11/21 12/12/21 23:59 23:59 23:59 Intake Total 800 / 1280 720 / 720 Output Total 600 / 1200 800 / 800 Balance 200 / 80 -80 / -80 Lab / Micro Data Result Diagrams: 12/12/21 03:48 12/12/21 03:48 Labs: Laboratory Results - last 24 hr 12/12/21 03:48: WBC 7.7, RBC 4.44 L, Hgb 13.3, Hct 41.1, MCV 92.6, MCH 30.0, MCHC 32.4, RDW Std Deviation 46.9 H, RDW Coeff of Edi 13.7, Plt Count 174, MPV 11.1 12/12/21 03:48: PT 15.2 H, INR 1.2, APTT 36.8 H 12/12/21 03:48: Sodium 141, Potassium 4.2, Chloride 108 H, Carbon Dioxide 26.0, Anion Gap 7, BUN 21 H, Creatinine 1.06, Estim Creat Clear Calc 52.61, Est GFR (MDRD) Af Amer 85, Est GFR (MDRD) Non-Af 71, BUN/Creatinine Ratio 19.8, Glucose 111 H, Calcium 8.3 L Cardiology Labs/Tests 12/12/21 03:48: WBC 7.7, RBC 4.44 L, Hgb 13.3, Hct 41.1, MCV 92.6, MCH 30.0, MCHC 32.4, Plt Count 174, MPV 11.1 12/12/21 03:48: PT 15.2 H, INR 1.2, APTT 36.8 H 12/12/21 03:48: Sodium 141, Potassium 4.2, Chloride 108 H, Carbon Dioxide 26.0, Anion Gap 7, BUN 21 H, Creatinine 1.06, Est GFR (MDRD) Af Amer 85, Est GFR (MDRD) Non-Af 71, BUN/Creatinine Ratio 19.8, Glucose 111 H, Calcium 8.3 L Rhythm: EKG: ECHO: Stress Test: Cardiac Cath: PCI: CT Surgery: Holter monitor: EPS: PPM: CXR: Chest CT Scan: Assessment & Plan Assessment/Plan (1) Pacemaker: PLAN: Patient is status post permanent pacemaker placement for atrial fibrillation with a slow ventricular response rate. Patient did well overnight. Groin appears to be stable. Pacer check is stable. Patient be discharged for outpatient follow-up. Thank you for allowing me to participate in the care of your patient. Please don't hesitate to call if any issues arise.
--- NOTE | 2021-12-12 08:19 | DCINST_ITS ---
Discharge Instructions Follow Up Care Test Results: Test results from this visit will be discussed in further detail at your follow- up appointment, if applicable. Discharge Plan Admission Admit Date/Time: 12/11/21 14:11 Attending Provider: Edmundo Perez Primary Care Provider: Jose Fitzgerald Discharge Orders/Prescriptions Prescriptions: Continued fluticasone propion-salmeterol [Advair Diskus] 250-50 mcg/dose blister with device 1 inh INHALATION BID Hold Instructions: Resume on 01/28/21. hold while on dexamethasone. gabapentin 300 mg capsule 900 mg PO TID aspirin 81 mg tablet,delayed release (DR/EC) 81 mg PO DAILY nitroglycerin [Nitrostat] 0.4 mg tablet, sublingual 0.4 mg SUBLINGUAL Q5-15M PRN (Reason: Pain) Qty: 25 2RF losartan 50 mg tablet 50 mg PO QDAY Qty: 90 3RF hydrochlorothiazide 25 mg tablet 25 mg PO QDAY Qty: 90 3RF isosorbide mononitrate 60 mg tablet extended release 24 hr 60 mg PO DAILY Qty: 90 3RF pravastatin 20 mg tablet 20 mg PO QHS Qty: 90 3RF Discontinued Eliquis 5 mg tablet 5 mg PO BID Qty: 60 6RF Referrals / Follow Up: Jose Fitzgerald DO [Primary Care Provider] - Disposition Disposition (needs filled in before D/C Order can be placed): Home, Self Care
[2021-12-12] MEDS: Aspirin E.C. 81 MG Tablet PO (08:50)
[2021-12-12] MEDS: Losartan Potassium 50 MG Tablet PO (08:50)
[2021-12-12] MEDS: hydroCHLOROthiazide 25 MG Tablet PO (08:50)
[2021-12-12] MEDS: Isosorbide Mononitrate 60 MG Tablet PO (08:50)
--- NOTE | 2021-12-12 10:14 | PHA.DC.MR ---
Pharmacy Service has performed discharge medication reconciliation for this patient. The patient's discharge medication list was reviewed for discrepancies and discrepancies were resolved. Home Medications fluticasone 250 mcg-salmeterol 50 mcg/dose blistr powdr for inhalation (Advair Diskus) 1 inh inhalation BID 06/17/17 aspirin 81 mg tablet,delayed release 81 mg PO DAILY 12/26/19 nitroglycerin 0.4 mg sublingual tablet (Nitrostat) 0.4 mg sublingual Q5-15M PRN Pain #25 tabs 09/30/20 hydrochlorothiazide 25 mg tablet 25 mg PO QDAY #90 tabs 04/23/21 losartan 50 mg tablet 50 mg PO QDAY #90 tabs 04/23/21 isosorbide mononitrate 60 mg tablet,extended release 24 hr 60 mg PO DAILY #90 tabs 06/16/21 pravastatin 20 mg tablet 20 mg PO QHS #90 tabs 06/16/21 gabapentin 300 mg capsule 900 mg PO TID 10/14/21
--- NOTE | 2021-12-16 10:12 | PCM.OP.BLANK ---
Operative Report Date of Procedure: 12/11/21 Patient with symptomatic bradycardia: Atrial fibrillation with a slow ventricular response rate. Procedure insertion of a VVI pacemaker via the right femoral vein transcatheter pacing system. After informed consent was obtained and procedural antibiotics were given the patient was brought to the cardiac catheterization lab in the right and left femoral areas were prepped and draped in the sterile manner.? Intermittent boluses of Versed and fentanyl and 1% subcutaneous lidocaine were used for sedation and analgesia.? Femoral vein access was achieved via the Seldinger technique and confirmed by positioning of the guidewire into the superior vena cava under fluoroscopic guidance.? Over the wire the Jennifer dilator was used to dilate the femoral vein access up to 20 Vietnamese.? The Jennifer dilator was removed.? After flushing of the sheath with heparinized saline the 23 Vietnamese delivery system was inserted and advanced over the wire under fluoroscopic guidance to the floor of the right atrium.? A bolus of 5000 units of intravenous heparin was administered. The delivery catheter and leadless pacemaker were then brought into the field and was flushed thoroughly with heparinized saline use to express all air distally.? Saline flush was also used to flush the suture at the proximal end of the delivery sheath handle.? Through the delivery sheath the delivery catheter and leadless pacemaker were advanced through the sheath to the floor of the right atrium under fluoroscopic guidance. The delivery catheter and pacemaker were advanced beyond the delivery sheath with appropriate deflection and manipulation: The delivery catheter and pacemaker were advanced under fluoroscopic guidance in the COREY projection and across the tricuspid valve into the right ventricle.? In the GUAMANIAN projection the delivery sheath was positioned in from a position with a right ventricular septal wall.? Contrast injection confirmed from contact with the right ventricular wall along the septum and excluded on apical and anterior position.? The delivery sheath was then flushed with heparinized saline.? The leadless pacemaker was then deployed in the delivery sheath was pulled back to an adequate position to complete the tug test.? Under magnified view with cine imaging, the tug test was completed and confirmed no less than 2 of the 4 times when excellent contact with the myocardium and there was no dislodgment of the pacemaker.? Testing was performed of the device and acceptable sensing, impedance, and capture thresholds were confirmed.? The testing of the pacemaker was repeated multiple times and confirmed to be adequate and stable. The delivery sheath was flushed again with heparinized saline one end of the suture was cut and the suture was slowly withdrawn from the delivery sheath.? Once the suture was removed the pacemaker was tested again and confirmed appropriate stable electrical parameters.? There was no change in position of the device after the suture was removed. The delivery catheter and sheath were then removed from the right femoral vein hemostasis was obtained with surgical pursestring closure and with a use of a three-way stopcock and manual pressure. The patient left the room in stable condition with a pacemaker programmed to appropriate parameters.? There were no complications. Device product information electrical data and serial number provided in the chart.
== END 2021-12-12 08:19 | disposition home or self-care (01) ==
LOC: CLSP 14:17 → PCU 14:17
PROVIDERS: Internal Medicine Cardiovascular Disease; Admitting Provider Internal Medicine Cardiovascular Disease; PCP Family Medicine; Referring Provider Internal Medicine Cardiovascular Disease; Visit Provider Internal Medicine Cardiovascular Disease
DX: Z45.018 Encounter for adjustment and management of other part of cardiac pacemaker (principal); I48.19 Other persistent atrial fibrillation; I49.5 Sick sinus syndrome; R00.1 Bradycardia, unspecified; I25.10 Atherosclerotic heart disease of native coronary artery without angina pectoris; Z95.1 Presence of aortocoronary bypass graft; I49.1 Atrial premature depolarization; I49.3 Ventricular premature depolarization; E78.00 Pure hypercholesterolemia, unspecified; I10 Essential (primary) hypertension; Z79.899 Other long term (current) drug therapy; Z79.82 Long term (current) use of aspirin; Z86.16 Personal history of COVID-19; Z86.711 Personal history of pulmonary embolism; Z87.891 Personal history of nicotine dependence
CPT/HCPCS: 33274; 36415; 71046; 80048; 81001; 85027; 85610; 85730; 94640; 99152; 99153; 99218; C1894; Q9967; C1769; G0378

== ENCOUNTER → 2022-05-01 | Outpatient (CLI) | payer MEDICARE, SELFPAY ==
[2019-01-31 12:56] VITALS: BMI 27.8
[2022-05-01 11:01] LABS: AST(SGOT) 16 U/L (15-37); Alanine Aminotransfer ALT/SGPT 17 U/L (16-61); Albumin, Serum 3.6 g/dL (3.2-5.0); Alkaline Phosphatase 58 U/L (45-117); Bilirubin, Direct 0.15 mg/dL (0.00-0.30); Cholesterol 159 mg/dL (200); Globulin 3.2 g/dL (2.2-4.2); High Density Lipoprotein 59 mg/dL; Protein, Total 6.8 g/dL (6.4-8.2); Triglycerides 60 mg/dL; Very Low Density Lipoprotein 12 mg/dL (5-40)
== END | disposition home or self-care (01) ==
LOC: MTLAB 08:40
PROVIDERS: PCP Family Medicine; Referring Provider Physician Assistant Medical; Visit Provider Physician Assistant Medical
DX: E78.00 Pure hypercholesterolemia, unspecified (principal)
CPT/HCPCS: 36415; 80061; 80076

== ENCOUNTER → 2022-11-26 | Outpatient (CLI) | payer MEDICARE, SELFPAY ==
[2019-01-31 12:56] VITALS: BMI 27.8
--- NOTE | 2022-11-26 16:27 | RAD_ITS ---
INDICATION: ADAIR EXAMINATION/TECHNIQUE: X-RAY - XR Chest 2 Views COMPARISON: 12/09/2021 FINDINGS: LINES/DEVICES: Digital device projects over the left ventricle. LUNGS: No consolidation or vascular congestion. Stable blunting left costophrenic angle. MEDIASTINUM AND CARDIOVASCULAR STRUCTURES: Cardiac silhouette stable within normal limits. Stable CABG changes. BONES AND SOFT TISSUES: No acute changes. RAD/Chest PA and Lateral IMPRESSION: No radiographic evidence of acute cardiopulmonary disease. Electronically Signed: Oseas Anand MD at 0:21 EDT ,
[2022-11-26 17:12] LABS: Absolute Lymphocyte Count 1.12 X10^3/uL (0.83-4.51); Absolute Neutrophil Count 10.3 X10^3/uL (2.0-7.7); Basophil% 0.8 % (0-1); Eosinophil# 0.22 X10^3/uL; Eosinophils% 1.8 % (0-5); Hematocrit 43.9 % (40-54); Hemoglobin 14.3 g/dL (13.0-16.5); Lymphocyte # 1.12 X10^3/ul (0.83-4.51); Mean Corp Hgb Conc 32.6 g/dL (32-36); Mean Corpuscular Hgb 29.9 pg (27.0-32.0); Mean Corpuscular Volume 91.8 fL (80-94); Mean Platelet Vol. 11.4 fl (6.2-12.0); Monocyte# 0.71 X10^3/uL; Monocyte% 5.7 % (0-10); NRBC Flagged by Analyzer 0 % (0-5); Neutrophil # 10.28 X10^3/uL (2.7-7.7); Neutrophil % 82.4 % (47-70); Platelet Count 214 K/mm3 (150-450); RBC Distribution Width CV 14.2 % (11.6-14.6); RBC Distribution Width SD 48.3 fl (35.1-43.9); Red Blood Count 4.78 M/mm3 (4.6-6.2); White Blood Count 12.5 K/mm3 (4.4-11.0)
[2022-11-26 17:47] LABS: AST(SGOT) 15 U/L (15-37); Alanine Aminotransfer ALT/SGPT 15 U/L (16-61); Albumin, Serum 3.6 g/dL (3.2-5.0); Alkaline Phosphatase 66 U/L (45-117); Bilirubin, Direct 0.18 mg/dL (0.00-0.30); Cholesterol 134 mg/dL (200); Globulin 3.6 g/dL (2.2-4.2); High Density Lipoprotein 56 mg/dL; Protein, Total 7.2 g/dL (6.4-8.2); Triglycerides 87 mg/dL; Very Low Density Lipoprotein 17 mg/dL (5-40)
== END | disposition home or self-care (01) ==
LOC: LAB 16:09
PROVIDERS: Internal Medicine Cardiovascular Disease; PCP Family Medicine; Referring Provider Physician Assistant Medical; Visit Provider Physician Assistant Medical
DX: R06.00 Dyspnea, unspecified (principal); I48.19 Other persistent atrial fibrillation; I10 Essential (primary) hypertension; E78.00 Pure hypercholesterolemia, unspecified; Z95.0 Presence of cardiac pacemaker; Z95.1 Presence of aortocoronary bypass graft
CPT/HCPCS: 36415; 71046; 80061; 80076; 85025

== ENCOUNTER → 2023-03-08 | Outpatient (CLI) | payer MEDICARE, SELFPAY ==
[2019-01-31 12:56] VITALS: BMI 27.8
--- NOTE | 2023-03-08 12:07 | CYSPIN_PTH ---
PATIENT: SHAZIA JJ LOC: [facility] U#:[id number] AGE/SX: 87/M ROOM: RE03/08/[address]: Dr. Rafael Dent MD : [id number] BED: DIS: 03/08/2023 SPEC #: [id number] RECD: 03/09/23 08:58 STATUS: PASCUAL REAquilino #: [id number] RAUL: 03/08/23 12:[address]: Rafael Dent DEPT: CYTOLOGY RECD BY: Becky Saucedo ENTERED: 03/09/23 08:58 SP TYPE: CYSPIN FL OTHR DR: Dr. Jose Fitzgerald, DO Tissues: Urine Procedures: Pap Stain (control) Special Stain Group II Cytospin Fluid HEADER OPERATION: Not noted PRE-OP DIAGNOSIS: Malignant neoplasm of bladder TISSUE SUBMITTED: Urine for cytology DIAGNOSIS CYTOLOGY Urine for cytology (cytospin): Atypical urothelial cells present (AUC), Chaparrita System Category III. See comment. AM:rg 03/09/2023 COMMENT The Chaparrita System for urine cytology diagnostic categorization was used in the evaluation of this case. 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 CYTOLOGY STUDY Slides are reviewed. CYTOLOGY GROSS Received is 60 ml of yellow-gold cloudy fluid labeled with the patient's name and and designated per the requisition as urine. Submitted for cytology preparation. / thomas 03/08/2023 TC:? CPT: 57307
[2023-03-08 12:08] LABS: Cytology, Body Fluid / CSF SEE PATHOLOGY REPORT
== END | disposition home or self-care (01) ==
LOC: LABSPEC 11:41
PROVIDERS: PCP Family Medicine; Referring Provider Urology; Visit Provider Urology
DX: C67.2 Malignant neoplasm of lateral wall of bladder (principal)
CPT/HCPCS: 88108; 88313

== ENCOUNTER → 2023-05-13 | Outpatient (CLI) | payer MEDICARE, SELFPAY ==
[2019-01-31 12:56] VITALS: BMI 27.8
[2023-05-13 12:55] LABS: AST(SGOT) 21 U/L (15-37); Alanine Aminotransfer ALT/SGPT 15 U/L (16-61); Albumin, Serum 3.4 g/dL (3.2-5.0); Alkaline Phosphatase 57 U/L (45-117); Bilirubin, Direct 0.14 mg/dL (0.00-0.30); Cholesterol 148 mg/dL (200); Globulin 3.5 g/dL (2.2-4.2); High Density Lipoprotein 53 mg/dL; Protein, Total 6.9 g/dL (6.4-8.2); Triglycerides 77 mg/dL; Very Low Density Lipoprotein 15 mg/dL (5-40)
== END | disposition home or self-care (01) ==
LOC: MTLAB 10:46
PROVIDERS: PCP Family Medicine; Referring Provider Nurse Practitioner Family; Visit Provider Nurse Practitioner Family
DX: E78.00 Pure hypercholesterolemia, unspecified (principal)
CPT/HCPCS: 36415; 80061; 80076

== ENCOUNTER → 2023-06-23 | Outpatient (CLI) | payer MEDICARE, SELFPAY ==
[2019-01-31 12:56] VITALS: BMI 27.8
--- NOTE | 2023-06-23 15:00 | RAD_ITS ---
STUDY: X-RAY CHEST REASON FOR EXAM: Male, 87 years old. SOB,CHEST TIGHTNESS,WHEEZING TECHNIQUE: Frontal and lateral views of the chest. COMPARISON: November 26, 2022 FINDINGS: Sternotomy wires. Loop recorder left chest. The lungs are clear and expanded. There is no demonstrated pleural abnormality. Normal size heart. Normal mediastinum and ray. Normal visualized pulmonary arteries. Normal visualized aortic arch and descending thoracic aorta. Normal visualized thoracic spine. Sclerotic lesion left humeral head. There is no demonstrated abnormality of the visualized soft tissue structures of the upper abdomen. RAD/Chest PA and Lateral IMPRESSION: No acute disease Electronically Signed: Jarocho Wood MD at 19:10 EST ,
--- OUTSIDE RECORDS SUMMARY | 2023-06-23 16:12 | XMS RPT_ITS | CCD ---
Author Name Unknown Address [address] [place] [address] Organization [facility] Care Team Providers Care [employer] Name Role Phone Sandra Avendaño Unavailable Unavailable William Alvarez MD Unavailable William Alvarez MD Unavailable [phone] Sandra Avendaño Unavailable Unavailable Gwen Lundberg RN Unavailable Unavailable Kenyatta Hollis Unavailable Unavailable Kenyatta Hollis Unavailable Unavailable Allergies Allergy Classification Reported Allergen(s) Allergy Type Date of Onset Reaction(s) Facility (7 sources) iodine Drug Allergy 10-27-2010 [facility] Work Phone: Medications Completed/Discontinued Medications Medication Drug Class(es) Dates Sig (Normalized) Sig (Original) amitriptyline hydrochloride 50 mg oral tablet (14 sources) Tricyclic Antidepressant Start: 02-29-2012 End: 11-13-2014 take 1 tablet by mouth at bedtime AMITRIPTYLINE HCL 50 MG TABS One tablet by mouth at bedtime. AMITRIPTYLINE HCL [id number] Mandie Riley PA-C aspirin 81 mg oral tablet (20 sources) Platelet Aggregation Inhibitor, Nonsteroidal Anti-inflammatory Drug Start: 10-27-2010 take 1 tablet by mouth once daily ADULT ASPIRIN EC LOW STRENGTH 81 MG TBEC Take one (1) tablet by mouth daily ASPIRIN [id number] Nnamdi Addison MA Problems Active Problems Problem Classification Problem Date Documented Date Episodic/Chronic Cardiac and circulatory congenital anomalies (7 sources) Ostium secundum type atrial septal defect; Translations: [Atrial septal defect] Onset: 11-20-2014 11-20-2014 Chronic Cardiac dysrhythmias (12 sources) Conduction disorder of the heart; Translations: [Cardiac arrhythmia, unspecified] Onset: 10-27-2010 Resolved: 12-30-2016 12-30-2016 Chronic Cardiac dysrhythmias (6 sources) Bradycardia; Translations: [Sinus bradycardia] Onset: 10-27-2010 Resolved: 12-30-2016 12-30-2016 Chronic Complication of device; implant or graft (12 sources) Arteriosclerosis of coronary artery bypass graft; Translations: [Atherosclerosis of coronary artery bypass graft(s) without angina pectoris] Onset: 10-27-2010 10-27-2010 Chronic Disorders of lipid metabolism (7 sources) Hyperlipidemia; Translations: [Hyperlipidemia, unspecified] Onset: 10-27-2010 10-27-2010 Chronic Essential hypertension (7 sources) Hypertensive disorder; Translations: [Essential (primary) hypertension] Onset: 10-27-2010 10-27-2010 Chronic Other nutritional; endocrine; and metabolic disorders (2 sources) Body mass index 25-29 - overweight; Translations: [Overweight] Onset: 11-13-2014 11-05-2015 Chronic Other nutritional; endocrine; and metabolic disorders (14 sources) Body mass index (BMI) 30.0-30.9, adult; Translations: [Body Mass Index 30.0-30.9, adult] Onset: 03-27-2013 Resolved: 11-05-2015 11-05-2015 Chronic Unclassified (2 sources) 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; Translations: [Presence of aortocoronary bypass graft] Onset: 10-27-2010 12-30-2016 Unclassified (2 sources) Long-term drug therapy; 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] Onset: 10-27-2010 10-27-2010 Past or Other Problems Problem Classification Problem Date Documented Da te Episodic/Chronic Cardiac dysrhythmias (13 sources) Bradycardia; Translations: [Bradycardia, unspecified] Onset: 10-27-2010 Resolved: 12-30-2016 10-27-2010 Episodic Coronary atherosclerosis and other heart disease (10 sources) Presence of aortocoronary bypass graft; Translations: [Aortocoronary bypass status] Onset: 10-27-2010 10-27-2010 Episodic Other aftercare (5 sources) Long-term drug therapy; Translations: [Other senior care (current) drug therapy] Onset: 10-27-2010 10-27-2010 Episodic Other nutritional; endocrine; and metabolic disorders (5 sources) Body mass index 25-29 - overweight; Translations: [Overweight] Onset: 11-13-2014 11-05-2015 Episodic Other nutritional; endocrine; and metabolic disorders (5 sources) Finding of body mass index; Translations: [Body mass index (BMI) 28.0-28.9, adult] Onset: 11-13-2014 11-13-2014 Episodic Other nutritional; endocrine; and metabolic disorders (5 sources) Body mass index (BMI) 29.0-29.9, adult; Translations: [Body Mass Index 29.0-29.9, adult] Onset: 03-27-2013 03-27-2013 Episodic Other screening for suspected conditions (not mental disorders or infectious disease) (20 sources) Cardiovascular stress test abnormal; Translations: [Abnormal result of cardiovascular function study, unspecified] Onset: 10-27-2010 Resolved: 12-30-2016 09-19-2012 Episodic Other skin disorders (12 sources) Eruption; Translations: [Rash and other nonspecific skin eruption] Onset: 10-27-2010 Resolved: 12-30-2016 12-30-2016 Episodic Residual codes; unclassified (11 sources) Family history of stroke; Translations: [Body mass index (BMI) 29.0-29.9, adult] Onset: 03-27-2013 05-14-2014 Episodic Results Test Name Value Interpretation Reference Range Facil ity Vital Signs Date Time Vital Sign Value Performing Clinician Susy moncada 01-01-2017 16:13-0400 Body height 180.34 cm Kenyatta Hollis [facility] Work Phone: 01-01-2017 16:13-0400 Body mass index (BMI) [Ratio] 27.61 kg/m2 Paulkong Hollis [facility] Work Phone: 01-01-2017 16:13-0400 Body weight 89.81 kg Brittachapo Hollis [facility] Work Phone: 01-01-2017 16:13-0400 Diastolic blood pressure 60 mm[Hg] Kenyatta Hollis [facility] Work Phone: 01-01-2017 16:13-0400 Diastolic blood pressure 68 mm[Hg] Brittachapo Hollis [facility] Work Phone: 01-01-2017 16:13-0400 Heart rate 68 /min Kenyatta Hollis [facility] Work Phone: 01-01-2017 16:13-0400 Heart rate 64 /min Kenyatta Hollis [facility] Work Phone: 01-01-2017 16:13-0400 Respiratory rate 16 /min Kenyatta Hollis [facility] Work Phone: 01-01-2017 16:13-0400 Systolic blood pressure 118 mm[Hg] Kenyatta Hollis [facility] Work Phone: 01-01-2017 16:13-0400 Systolic blood pressure 110 mm[Hg] Kenyatta Hollis [facility] Work Phone: 01-01-2017 16:13-0400 Weight 89.81 kg William Alvarez MD [facility] Work Phone: 07-13-2016 11:08-0500 Body mass index (BMI) [Ratio] 28.03 kg/m2 William Alvarez MD [facility] Work Phone: 07-13-2016 11:08-0500 Body surface area Derived from formula 2.12 m2 William Alvarez MD [facility] Work Phone: 07-13-2016 11:08-0500 Body weight 91.17 kg William Alvarez MD [facility] Work Phone: 07-13-2016 11:08-0500 Diastolic blood pressure 70 mm[Hg] William Alvarez MD [facility] Work Phone: 07-13-2016 11:08-0500 Heart rate 64 /min William Alvarez MD [facility] Work Phone: 07-13-2016 11:08-0500 Respiratory rate 16 /min William Alvarez MD [facility] Work Phone: 07-13-2016 11:08-0500 Systolic blood pressure 122 mm[Hg] William Alvarez MD [facility] Work Phone: 09-07-2011 09:21-0400 Body height 180.34 cm William Alvarez MD [facility] Work Phone: Procedures Date Procedure Procedure Detail Performing Clinician Start: 04-07-2017 End: 04-09-2017 Lipid 1996 panel - Serum or Plasma William Alvarez MD Start: 04-06-2017 End: 04-06-2017 *Hepatic Function Panel William Alvarez MD Start: 01-01-2017 End: 01-01-2017 Dietary management education, guidance, and counseling Kenyatta Hollis Start: 01-01-2017 End: 01-01-2017 Documentation of current medications Kenyatta Hollis Start: 01-01-2017 End: 01-01-2017 Follow Up Appt 6 months William Alvarez MD Start: 01-01-2017 End: 01-01-2017 CHANDLER Alvarez MD Start: 01-01-2017 End: 01-01-2017 Follow Up Appt 6 months William Alvarez MD Start: 01-01-2017 End: 01-01-2017 MMM William Alvarez MD Start: 10-05-2016 End: 10-05-2016 *Hepatic Function Panel William Alvarez MD Start: 10-05-2016 End: 10-05-2016 Lipid 1996 panel - Serum or Plasma William Alvarez MD Start: 10-05-2016 End: 10-05-2016 Hepatic function 2000 panel - Serum or Plasma William Alvarez MD Start: 10-05-2016 End: 10-05-2016 Lipid 1996 panel - Serum or Plasma William Alvarez MD Start: 07-13-2016 End: 07-13-2016 Follow Up Appt 6 months William Alvarez MD Start: 07-13-2016 End: 07-13-2016 MM William Alvarez MD Start: 07-13-2016 End: 07-13-2016 Dietary management education, guidance, and counseling William Alvarez MD Start: 07-13-2016 End: 07-13-2016 Documentation of current medications William Alvarez MD Start: 07-13-2016 End: 07-13-2016 Follow Up Appt 6 months William Alvarez MD Start: 07-13-2016 End: 07-13-2016 MM William Alvarez MD Start: 04-09-2016 End: 04-13-2016 *Hepatic Function Panel William Alvarez MD Start: 04-09-2016 End: 04-13-2016 Lipid 1996 panel - Serum or Plasma William Alvarez MD Start: 04-09-2016 End: 04-13-2016 Hepatic function 2000 panel - Serum or Plasma William Alvarez MD Start: 04-09-2016 End: 04-13-2016 Lipid 1996 panel - Serum or Plasma William Alvarez MD Start: 11-05-2015 End: 11-05-2015 Follow Up Appt 6 months Mandie kaur PA-C Work Phone: Start: 11-05-2015 End: 11-05-2015 M Mandie Riley PA-C Work Phone: Start: 11-05-2015 End: 11-05-2015 Follow Up Appt 6 months Mandie kaur PA-C Work Phone: Start: 11-05-2015 End: 11-05-2015 PFM Mandie Riley PA-C Work Phone: Start: 09-29-2015 End: 10-09-2015 *Hepatic Function Panel William Alvarez MD Start: 09-29-2015 End: 10-09-2015 Lipid 1996 panel - Serum or Plasma William Alvarez MD Start: 09-29-2015 End: 10-09-2015 Hepatic function 2000 panel - Serum or Plasma William Alvarez MD Start: 09-29-2015 End: 10-09-2015 Lipid 1996 panel - Serum or Plasma William Alvarez MD Start: 05-17-2015 End: 05-17-2015 Follow Up Appt 6 months William Alvarez MD Start: 05-17-2015 End: 05-17-2015 MM William Alvarez MD Start: 05-17-2015 End: 05-17-2015 Follow Up Appt 6 months William Alvarez MD Start: 05-17-2015 End: 05-17-2015 MM William Alvarez MD Start: 03-31-2015 End: 04-15-2015 Lipid 1996 panel - Serum or Plasma William Alvarez MD Start: 03-31-2015 End: 04-15-2015 Lipid 1996 panel - Serum or Plasma William Alvarez MD Start: 11-13-2014 End: 11-14-2014 Documentation of current medications Mandie Riley PA-C Work Phone: Start: 11-13-2014 End: 11-13-2014 Ecg routine ecg w/least 12 lds w/i&r Mandie Riley PA-C Work Phone: Start: 11-13-2014 End: 11-13-2014 Follow Up Appt 6 months Mandie kaur PA-C Work Phone: Start: 11-13-2014 End: 11-13-2014 PFM Mandie Riley PA-C Work Phone: Start: 11-13-2014 End: 11-14-2014 Documentation of current medications Mandie Riley PA-C Work Phone: Start: 11-13-2014 End: 11-13-2014 Ecg routine ecg w/least 12 lds w/i&r Mandie Riley PA-C Work Phone: Start: 11-13-2014 End: 11-13-2014 Follow Up Appt 6 months Mandie kaur PA-C Work Phone: Start: 09-19-2014 End: 10-15-2014 *Hepatic Function Panel William Alvarez MD Start: 09-19-2014 End: 10-15-2014 Lipid 1996 panel - Serum or Plasma William Alvarez MD Start: 09-19-2014 End: 10-15-2014 Hepatic function 2000 panel - Serum or Plasma William Alvarez MD Start: 09-19-2014 End: 10-15-2014 Lipid 1996 panel - Serum or Plasma William Alvarez MD Start: 05-14-2014 End: 10-30-2014 Follow Up Appt 6 months William Alvarez MD Start: 05-14-2014 End: 10-30-2014 MMM William Alvarez MD Start: 05-14-2014 End: 10-30-2014 Follow Up Appt 6 months William Alvarez MD Start: 05-14-2014 End: 10-30-2014 Lipid 1996 panel William Alvarez MD Start: 02-28-2014 End: 03-21-2014 *Hepatic Function Panel William Alvarez MD Start: 02-28-2014 End: 03-21-2014 Lipid 1996 panel - Serum or Plasma William Alvarez MD Start: 02-28-2014 End: 03-21-2014 Hepatic function 2000 panel - Serum or Plasma William Alvarez MD Start: 02-28-2014 End: 03-21-2014 Lipid 1996 panel - Serum or Plasma William Alvarez MD Start: 10-30-2013 End: 11-21-2013 *BMP Mandie Riley PA-C Work Phone: Start: 10-30-2013 End: 11-21-2013 Basic metabolic 2000 panel - Serum or Plasma Mandie Riley PA-C Work Phone: Start: 10-16-2013 End: 10-16-2013 *BMP Mandie Riley PA-C Work Phone: Start: 10-16-2013 End: 10-16-2013 Basic metabolic 2000 panel - Serum or Plasma Mandie Riley PA-C Work Phone: Start: 10-02-2013 End: 10-02-2013 Ecg routine ecg w/least 12 lds w/i&r Mandie Riley PA-C Work Phone: Start: 10-02-2013 End: 10-02-2013 Follow Up Appt 6 months Mandie kaur PA-C Work Phone: Start: 10-02-2013 End: 10-02-2013 PFM Mandie Riley PA-C Work Phone: Start: 10-02-2013 End: 10-02-2013 Ecg routine ecg w/least 12 lds w/i&r Mandie Riley PA-C Work Phone: Start: 10-02-2013 End: 10-02-2013 Follow Up Appt 6 months Mandie kaur PA-C Work Phone: Start: 10-02-2013 End: 10-02-2013 PFM Mandie Riley PA-C Work Phone: Start: 03-31-2013 End: 09-20-2013 *Hepatic Function Panel William Alvarez MD Start: 03-31-2013 End: 09-20-2013 Lipid 1996 panel - Serum or Plasma William Alvarez MD Start: 03-31-2013 End: 09-20-2013 Hepatic function 2000 panel - Serum or Plasma William Alvarez MD Start: 03-31-2013 End: 09-20-2013 Lipid 1996 panel - Serum or Plasma William Alvarez MD Start: 03-27-2013 End: 09-25-2013 *Hepatic Function Panel William Alvarez MD Start: 03-27-2013 End: 03-27-2013 Follow Up Appt 6 months William Alvarez MD Start: 03-27-2013 End: 09-25-2013 Lipid 1996 panel - Serum or Plasma William Alvarez MD Start: 03-27-2013 End: 03-27-2013 MMM William Alvarez MD Start: 03-27-2013 End: 03-27-2013 Follow Up Appt 6 months William Alvarez MD Start: 03-27-2013 End: 09-25-2013 Hepatic function 2000 panel - Serum or Plasma William Alvarez MD Start: 03-27-2013 End: 09-25-2013 Lipid 1996 panel - Serum or Plasma William Alvarez MD Start: 10-27-2012 End: 10-27-2012 Follow Up Appt Other Mandie travis PA-C Work Phone: Start: 10-27-2012 End: 10-27-2012 Follow Up Appt Other Mandie travis PA-C Work Phone: Start: 09-19-2012 End: 09-19-2012 Nurse, Teaching, Wound Check (no charge) William Alvarez MD Start: 09-19-2012 End: 09-19-2012 Nurse, Teaching, Wound Check (no charge) William Alvarez MD Start: 09-16-2012 End: 09-21-2012 *BMP Mandie Riley PA-C Work Phone: Start: 09-16-2012 End: 09-21-2012 aPTT in Platelet poor plasma by Coagulation assay Mandie Riley PA-C Work Phone: Start: 09-16-2012 End: 09-21-2012 CBC W Auto Differential panel - Blood Mandie Riley PA-C Work Phone: Start: 09-16-2012 End: 09-21-2012 Chest x-ray Mandie Riley PA-C Work Phone: Start: 09-16-2012 End: 09-21-2012 INR in Platelet poor plasma by Coagulation assay Mandie Riley PA-C Work Phone: Start: 09-16-2012 End: 10-17-2012 Left Heart Cath Mandie Riley PA-C Work Phone: Start: 09-16-2012 End: 09-21-2012 aPTT in Platelet poor plasma by Coagulation assay Mandie Riley PA-C Work Phone: Start: 09-16-2012 End: 09-21-2012 Basic metabolic 2000 panel - Serum or Plasma Mandie Riley PA-C Work Phone: Start: 09-16-2012 End: 10-17-2012 CBC W Auto Differential panel - Blood Mandie Riley PA-C Work Phone: Start: 09-16-2012 End: 09-21-2012 Chest x-ray Mandie Riley PA-C Work Phone: Start: 09-16-2012 End: 09-21-2012 INR in Platelet poor plasma by Coagulation assay Mandie Riley PA-C Work Phone: Start: 09-12-2012 End: 10-17-2012 24 hour holter monitor Mandie hill PA-C Work Phone: Start: 09-12-2012 End: 09-21-2012 Ecg routine ecg w/least 12 lds w/i&r Mandie Riley PA-C Work Phone: Start: 09-12-2012 End: 09-12-2012 Follow Up Appt 6 months Mandie kaur PA-C Work Phone: Start: 09-12-2012 End: 10-17-2012 Nuclear stress test -exercise Mandie Riley PA-C Work Phone: Start: 09-12-2012 End: 09-12-2012 PFM Mandie Riley PA-C Work Phone: Start: 09-12-2012 End: 10-17-2012 24 hour holter monitor Mandie hill PA-C Work Phone: Start: 09-12-2012 End: 09-12-2012 Chest x-ray Mandie Riley PA-C Work Phone: Start: 09-12-2012 End: 10-17-2012 Ecg routine ecg w/least 12 lds w/i&r Mandie Riley PA-C Work Phone: Start: 09-12-2012 End: 09-12-2012 PFM Mandie Riley PA-C Work Phone: Start: 05-25-2012 End: 08-31-2012 *Hepatic Function Panel William Alvarez MD Start: 05-25-2012 End: 08-31-2012 Lipid 1996 panel - Serum or Plasma William Alvarez MD Start: 05-25-2012 End: 08-31-2012 Hepatic function 2000 panel - Serum or Plasma William Alvarez MD Start: 05-25-2012 End: 08-31-2012 Lipid 1996 panel - Serum or Plasma William Alvarez MD Start: 03-11-2012 End: 05-02-2012 *Hepatic Function Panel William Alvarez MD Start: 03-11-2012 End: 05-02-2012 Lipid 1996 panel - Serum or Plasma William Alvarez MD Start: 03-11-2012 End: 05-02-2012 Hepatic function 2000 panel - Serum or Plasma William Alvarez MD Start: 03-11-2012 End: 05-02-2012 Lipid 1996 panel - Serum or Plasma William Alvarez MD Start: 02-29-2012 End: 05-02-2012 *Hepatic Function Panel William Alvarez MD Start: 02-29-2012 End: 08-31-2012 Follow Up Appt 3 months William Alvarez MD Start: 02-29-2012 End: 08-31-2012 Follow Up Appt 6 months William Alvarez MD Start: 02-29-2012 End: 05-02-2012 Lipid 1996 panel - Serum or Plasma William Alvarez MD Start: 02-29-2012 End: 08-31-2012 Follow Up Appt 3 months William Alvarez MD Start: 02-29-2012 End: 08-31-2012 Follow Up Appt 6 months William Alvarez MD Start: 02-29-2012 End: 05-02-2012 Hepatic function 2000 panel - Serum or Plasma William Alvarez MD Start: 02-29-2012 End: 05-02-2012 Lipid 1996 panel - Serum or Plasma William Alvarez MD Start: 09-14-2011 End: 05-02-2012 *Hepatic Function Panel William Alvarez MD Start: 09-14-2011 End: 05-02-2012 Lipid 1996 panel - Serum or Plasma William Alvarez MD Start: 09-14-2011 End: 05-02-2012 Hepatic function 2000 panel - Serum or Plasma William Alvarez MD Start: 09-14-2011 End: 05-02-2012 Lipid 1996 panel - Serum or Plasma William Alvarez MD Start: 09-07-2011 End: 09-07-2011 Ecg routine ecg w/least 12 lds w/i&r William Alvarez MD Start: 09-07-2011 End: 09-07-2011 Follow Up Appt 6 months William Alvarez MD Start: 09-07-2011 End: 09-07-2011 Ecg routine ecg w/least 12 lds w/i&r William Alvarez MD Start: 09-07-2011 End: 09-07-2011 Lipid 1996 panel William Alvarez MD Plan of Treatment Date Care Activity Detail Author Start: 10-04-2017 End: 04-09-2017 *Hepatic Function Panel *Hepatic Function Panel [facility] Work Phone: Start: 10-04-2017 End: 04-09-2017 Lipid panel [AGGREGATE] *Lipid Profile CC PCP [facility] Work Phone: Start: 06-28-2017 End: 06-28-2017 Appointment Appointment [facility] Work Phone: Start: 04-07-2017 End: 04-06-2017 *Hepatic Function Panel *Hepatic Function Panel [facility] Work Phone: Start: 04-07-2017 End: 04-09-2017 Lipid panel [AGGREGATE] *Lipid Profile CC PCP [facility] Work Phone: Start: 04-07-2017 End: 10-17-2016 Hepatic function 2000 panel - Serum or Plasma *Hepatic Function Panel [facility] Work Phone: Start: 04-07-2017 End: 10-17-2016 Lipid 1996 panel - Serum or Plasma *Lipid Profile CC PCP [facility] Work Phone: Start: 01-22-2017 End: 01-22-2017 Patient encounter procedure Appointment [facility] Work Phone: Start: 01-11-2017 End: 01-11-2017 Patient encounter procedure Appointment [facility] Work Phone: Start: 01-01-2017 End: 01-01-2017 Follow Up Appt 6 months Follow Up Appt 6 months [facility] Work Phone: Start: 01-01-2017 End: 01-01-2017 MMM MMM [facility] Work Phone: Start: 01-01-2017 End: 01-01-2017 Patient encounter procedure Appointment [facility] Work Phone: Start: 01-01-2017 End: 01-01-2017 Follow Up Appt 6 months Follow Up Appt 6 months [facility] Work Phone: Start: 01-01-2017 End: 01-01-2017 MMM MMM [facility] Work Phone: Start: 10-05-2016 End: 10-05-2016 *Hepatic Function Panel *Hepatic Function Panel [facility] Work Phone: Start: 10-05-2016 End: 10-05-2016 Lipid panel [AGGREGATE] *Lipid Profile CC PCP [facility] Work Phone: Start: 10-05-2016 End: 10-05-2016 Hepatic function 2000 panel - Serum or Plasma *Hepatic Function Panel [facility] Work Phone: Start: 10-05-2016 End: 10-05-2016 Lipid 1996 panel - Serum or Plasma *Lipid Profile CC PCP [facility] Work Phone: Start: 07-13-2016 End: 07-13-2016 Follow Up Appt 6 months Follow Up Appt 6 months [facility] Work Phone: Start: 07-13-2016 End: 07-13-2016 [facility] Work Phone: Start: 07-13-2016 End: 07-13-2016 Follow Up Appt 6 months Follow Up Appt 6 months [facility] Work Phone: Start: 07-13-2016 End: 07-13-2016 [facility] Work Phone: Start: 04-09-2016 End: 04-13-2016 *Hepatic Function Panel *Hepatic Function Panel [facility] Work Phone: Start: 04-09-2016 End: 04-13-2016 Lipid panel [AGGREGATE] *Lipid Profile CC PCP [facility] Work Phone: Start: 04-09-2016 End: 04-13-2016 Hepatic function 2000 panel - Serum or Plasma *Hepatic Function Panel [facility] Work Phone: Start: 04-09-2016 End: 04-13-2016 Lipid 1996 panel - Serum or Plasma *Lipid Profile CC PCP [facility] Work Phone: Start: 11-05-2015 End: 11-05-2015 Follow Up Appt 6 months Follow Up Appt 6 months [facility] Work Phone: Start: 11-05-2015 End: 11-05-2015 [facility] Work Phone: Start: 11-05-2015 End: 11-05-2015 Follow Up Appt 6 months Follow Up Appt 6 months [facility] Work Phone: Start: 11-05-2015 End: 11-05-2015 PFM PFM [facility] Work Phone: Start: 09-29-2015 End: 10-09-2015 *Hepatic Function Panel *Hepatic Function Panel [facility] Work Phone: Start: 09-29-2015 End: 10-09-2015 Lipid panel [AGGREGATE] *Lipid Profile CC PCP [facility] Work Phone: Start: 09-29-2015 End: 10-09-2015 Hepatic function 2000 panel - Serum or Plasma *Hepatic Function Panel [facility] Work Phone: Start: 09-29-2015 End: 10-09-2015 Lipid 1996 panel - Serum or Plasma *Lipid Profile CC PCP [facility] Work Phone: Start: 05-17-2015 End: 05-17-2015 Follow Up Appt 6 months Follow Up Appt 6 months [facility] Work Phone: Start: 05-17-2015 End: 05-17-2015 MMM MMM [facility] Work Phone: Start: 05-17-2015 End: 05-17-2015 Follow Up Appt 6 months Follow Up Appt 6 months [facility] Work Phone: Start: 05-17-2015 End: 05-17-2015 MMM MMM [facility] Work Phone: Start: 03-31-2015 End: 04-15-2015 Lipid panel [AGGREGATE] *Lipid Profile CC PCP [facility] Work Phone: Start: 03-31-2015 End: 04-15-2015 Lipid 1996 panel - Serum or Plasma *Lipid Profile CC PCP [facility] Work Phone: Start: 11-13-2014 End: 11-13-2014 Ecg routine ecg w/least 12 lds w/i&r EKG (In office) [facility] Work Phone: Start: 11-13-2014 End: 11-13-2014 Follow Up Appt 6 months Follow Up Appt 6 months [facility] Work Phone: Start: 11-13-2014 End: 11-13-2014 PFM PFM [facility] Work Phone: Start: 11-13-2014 End: 11-13-2014 Ecg routine ecg w/least 12 lds w/i&r EKG (In office) [facility] Work Phone: Start: 11-13-2014 End: 11-13-2014 Follow Up Appt 6 months Follow Up Appt 6 months [facility] Work Phone: Start: 11-13-2014 End: 11-13-2014 PFM PFM [facility] Work Phone: Start: 09-19-2014 End: 10-15-2014 *Hepatic Function Panel *Hepatic Function Panel [facility] Work Phone: Start: 09-19-2014 End: 10-15-2014 Lipid panel [AGGREGATE] *Lipid Profile CC PCP [facility] Work Phone: Start: 09-19-2014 End: 10-15-2014 Hepatic function 2000 panel - Serum or Plasma *Hepatic Function Panel [facility] Work Phone: Start: 09-19-2014 End: 10-15-2014 Lipid 1996 panel - Serum or Plasma *Lipid Profile CC PCP [facility] Work Phone: Start: 05-14-2014 End: 10-30-2014 Follow Up Appt 6 months Follow Up Appt 6 months [facility] Work Phone: Start: 05-14-2014 End: 10-30-2014 MMM MMM [facility] Work Phone: Start: 05-14-2014 End: 10-30-2014 Follow Up Appt 6 months Follow Up Appt 6 months [facility] Work Phone: Start: 05-14-2014 End: 10-30-2014 MMM MMM [facility] Work Phone: Start: 02-28-2014 End: 03-21-2014 *Hepatic Function Panel *Hepatic Function Panel [facility] Work Phone: Start: 02-28-2014 End: 03-21-2014 Lipid panel [AGGREGATE] *Lipid Profile CC PCP [facility] Work Phone: Start: 02-28-2014 End: 03-21-2014 Hepatic function 2000 panel - Serum or Plasma *Hepatic Function Panel [facility] Work Phone: Start: 02-28-2014 End: 03-21-2014 Lipid 1996 panel - Serum or Plasma *Lipid Profile CC PCP [facility] Work Phone: Start: 10-30-2013 End: 11-21-2013 *BMP *BMP [facility] Work Phone: Start: 10-30-2013 End: 11-21-2013 Basic metabolic 2000 panel - Serum or Plasma *BMP [facility] Work Phone: Start: 10-16-2013 End: 10-16-2013 *BMP *BMP [facility] Work Phone: Start: 10-16-2013 End: 10-16-2013 Basic metabolic 2000 panel - Serum or Plasma *BMP [facility] Work Phone: Start: 10-02-2013 End: 10-02-2013 Ecg routine ecg w/least 12 lds w/i&r EKG (In office) [facility] Work Phone: Start: 10-02-2013 End: 10-02-2013 Follow Up Appt 6 months Follow Up Appt 6 months [facility] Work Phone: Start: 10-02-2013 End: 10-02-2013 PFM PFM [facility] Work Phone: Start: 10-02-2013 End: 10-02-2013 Ecg routine ecg w/least 12 lds w/i&r EKG (In office) [facility] Work Phone: Start: 10-02-2013 End: 10-02-2013 Follow Up Appt 6 months Follow Up Appt 6 months [facility] Work Phone: Start: 10-02-2013 End: 10-02-2013 PFM PFM [facility] Work Phone: Start: 03-31-2013 End: 09-20-2013 *Hepatic Function Panel *Hepatic Function Panel [facility] Work Phone: Start: 03-31-2013 End: 09-20-2013 Lipid panel [AGGREGATE] *Lipid Profile CC PCP [facility] Work Phone: Start: 03-31-2013 End: 09-20-2013 Hepatic function 2000 panel - Serum or Plasma *Hepatic Function Panel [facility] Work Phone: Start: 03-31-2013 End: 09-20-2013 Lipid 1996 panel - Serum or Plasma *Lipid Profile CC PCP [facility] Work Phone: Start: 03-27-2013 End: 09-25-2013 *Hepatic Function Panel *Hepatic Function Panel [facility] Work Phone: Start: 03-27-2013 End: 03-27-2013 Follow Up Appt 6 months Follow Up Appt 6 months [facility] Work Phone: Start: 03-27-2013 End: 09-25-2013 Lipid panel [AGGREGATE] *Lipid Profile CC PCP [facility] Work Phone: Start: 03-27-2013 End: 03-27-2013 MMM MMM [facility] Work Phone: Start: 03-27-2013 End: 03-27-2013 Follow Up Appt 6 months Follow Up Appt 6 months [facility] Work Phone: Start: 03-27-2013 End: 09-25-2013 Hepatic function 2000 panel - Serum or Plasma *Hepatic Function Panel [facility] Work Phone: Start: 03-27-2013 End: 09-25-2013 Lipid 1996 panel - Serum or Plasma *Lipid Profile CC PCP [facility] Work Phone: Start: 03-27-2013 End: 03-27-2013 MMM MMM [facility] Work Phone: Start: 10-27-2012 End: 10-27-2012 Follow Up Appt Other Follow Up Appt Other [facility] Work Phone: Start: 10-27-2012 End: 10-27-2012 Follow Up Appt Other Follow Up Appt Other [facility] Work Phone: Start: 09-16-2012 End: 09-21-2012 *BMP *BMP [facility] Work Phone: Start: 09-16-2012 End: 09-21-2012 aPTT *PTT-Partial Thromboplastin Time [facility] Work Phone: Start: 09-16-2012 End: 09-21-2012 CBC W Auto Differential panel - Blood *CBC without Diff [facility] Work Phone: Start: 09-16-2012 End: 09-21-2012 Chest x-ray X-Ray, Chest, PA & Lateral [facility] Work Phone: Start: 09-16-2012 End: 09-21-2012 INR Coag RelTime (PPP) *PT/INR [facility] Work Phone: Start: 09-16-2012 End: 09-19-2012 Left Heart Cath Left Heart Cath [facility] Work Phone: Start: 09-16-2012 End: 09-21-2012 aPTT in Platelet poor plasma by Coagulation assay *PTT-Partial Thromboplastin Time [facility] Work Phone: Start: 09-16-2012 End: 09-21-2012 Basic metabolic 2000 panel - Serum or Plasma *BMP [facility] Work Phone: Start: 09-16-2012 End: 09-21-2012 CBC W Auto Differential panel - Blood *CBC without Diff [facility] Work Phone: Start: 09-16-2012 End: 09-21-2012 Chest x-ray X-Ray, Chest, PA & Lateral [facility] Work Phone: Start: 09-16-2012 End: 09-21-2012 INR in Platelet poor plasma by Coagulation assay *PT/INR [facility] Work Phone: Start: 09-16-2012 End: 09-19-2012 Left Heart Cath Left Heart Cath [facility] Work Phone: Start: 09-12-2012 End: 09-12-2012 24 hour holter monitor 24 hour holter monitor [facility] Work Phone: Start: 09-12-2012 End: 09-21-2012 Ecg routine ecg w/least 12 lds w/i&r EKG (In office) [facility] Work Phone: Start: 09-12-2012 End: 09-12-2012 Follow Up Appt 6 months Follow Up Appt 6 months [facility] Work Phone: Start: 09-12-2012 End: 09-12-2012 Nuclear stress test -exercise Nuclear stress test -exercise [facility] Work Phone: Start: 09-12-2012 End: 09-12-2012 PFM PFM [facility] Work Phone: Start: 09-12-2012 End: 09-12-2012 24 hour holter monitor 24 hour holter monitor [facility] Work Phone: Start: 09-12-2012 End: 09-21-2012 Ecg routine ecg w/least 12 lds w/i&r EKG (In office) [facility] Work Phone: Start: 09-12-2012 End: 09-12-2012 Follow Up Appt 6 months Follow Up Appt 6 months [facility] Work Phone: Start: 09-12-2012 End: 09-12-2012 Nuclear stress test -exercise Nuclear stress test -exercise [facility] Work Phone: Start: 09-12-2012 End: 09-12-2012 PFM PFM [facility] Work Phone: Start: 05-25-2012 End: 08-31-2012 *Hepatic Function Panel *Hepatic Function Panel [facility] Work Phone: Start: 05-25-2012 End: 08-31-2012 Lipid panel [AGGREGATE] *Lipid Profile [facility] Work Phone: Start: 05-25-2012 End: 08-31-2012 Hepatic function 2000 panel - Serum or Plasma *Hepatic Function Panel [facility] Work Phone: Start: 05-25-2012 End: 08-31-2012 Lipid 1996 panel - Serum or Plasma *Lipid Profile [facility] Work Phone: Start: 03-11-2012 End: 05-02-2012 *Hepatic Function Panel *Hepatic Function Panel [facility] Work Phone: Start: 03-11-2012 End: 05-02-2012 Lipid panel [AGGREGATE] *Lipid Profile [facility] Work Phone: Start: 03-11-2012 End: 05-02-2012 Hepatic function 2000 panel - Serum or Plasma *Hepatic Function Panel [facility] Work Phone: Start: 03-11-2012 End: 05-02-2012 Lipid 1996 panel - Serum or Plasma *Lipid Profile [facility] Work Phone: Start: 02-29-2012 End: 05-02-2012 *Hepatic Function Panel *Hepatic Function Panel [facility] Work Phone: Start: 02-29-2012 End: 08-31-2012 Follow Up Appt 3 months Follow Up Appt 3 months [facility] Work Phone: Start: 02-29-2012 End: 08-31-2012 Follow Up Appt 6 months Follow Up Appt 6 months [facility] Work Phone: Start: 02-29-2012 End: 05-02-2012 Lipid panel [AGGREGATE] *Lipid Profile [facility] Work Phone: Start: 02-29-2012 End: 08-31-2012 Follow Up Appt 3 months Follow Up Appt 3 months [facility] Work Phone: Start: 02-29-2012 End: 08-31-2012 Follow Up Appt 6 months Follow Up Appt 6 months [facility] Work Phone: Start: 02-29-2012 End: 05-02-2012 Hepatic function 2000 panel - Serum or Plasma *Hepatic Function Panel [facility] Work Phone: Start: 02-29-2012 End: 05-02-2012 Lipid 1996 panel - Serum or Plasma *Lipid Profile [facility] Work Phone: Start: 09-14-2011 End: 05-02-2012 *Hepatic Function Panel *Hepatic Function Panel [facility] Work Phone: Start: 09-14-2011 End: 05-02-2012 Lipid panel [AGGREGATE] *Lipid Profile [facility] Work Phone: Start: 09-14-2011 End: 05-02-2012 Hepatic function 2000 panel - Serum or Plasma *Hepatic Function Panel [facility] Work Phone: Start: 09-14-2011 End: 05-02-2012 Lipid 1996 panel - Serum or Plasma *Lipid Profile [facility] Work Phone: Start: 09-07-2011 End: 09-07-2011 Ecg routine ecg w/least 12 lds w/i&r EKG (In office) [facility] Work Phone: Start: 09-07-2011 End: 09-07-2011 Follow Up Appt 6 months Follow Up Appt 6 months [facility] Work Phone: Start: 09-07-2011 End: 09-07-2011 Ecg routine ecg w/least 12 lds w/i&r EKG (In office) [facility] Work Phone: Start: 09-07-2011 End: 09-07-2011 Follow Up Appt 6 months Follow Up Appt 6 months [facility] Work Phone: Patient Education [facility] Work Phone: Fall risk assessment 01-01-2017 Note Date & Type Note Facility Additional Source Comments FOR RECORDS PERTAINING TO PATIENTS WHO ARE OR HAVE BEEN ENROLLED IN A CHEMICAL DEPENDENCY/SUBSTANCEABUSE PROGRAM, SOME INFORMATION MAY BE OMITTED. This clinical summary was aggregated from multiple sources. Caution should be exercised in using it in the provision of clinical care. This summary normalizes information from multiple sources, and as a consequence, information in this document may materially change the coding, format and clinical context of patient data. In addition, data may be omitted in some cases. CLINICAL DECISIONS SHOULD BE BASED ON THE PRIMARY CLINICAL RECORDS. [employer] [facility]. provides no warranty or guarantee of the accuracy or completeness of information in this document.
== END | disposition home or self-care (01) ==
PROVIDERS: PCP Family Medicine; Referring Provider Nurse Practitioner Family; Visit Provider Nurse Practitioner Family
DX: R06.02 Shortness of breath (principal); R07.9 Chest pain, unspecified; R06.2 Wheezing; R05.9 Cough, unspecified
CPT/HCPCS: 71046

== ENCOUNTER → 2023-11-30 | Outpatient (CLI) | payer MEDICARE, SELFPAY ==
[2019-01-31 12:56] VITALS: BMI 27.8
[2023-11-30 16:17] LABS: AST(SGOT) 14 U/L (15-37); Alanine Aminotransfer ALT/SGPT 19 U/L (16-61); Albumin, Serum 3.4 g/dL (3.2-5.0); Alkaline Phosphatase 59 U/L (45-117); Bilirubin, Direct 0.22 mg/dL (0.00-0.30); Cholesterol 130 mg/dL (200); Globulin 3.1 g/dL (2.2-4.2); High Density Lipoprotein 52 mg/dL; Protein, Total 6.5 g/dL (6.4-8.2); Triglycerides 69 mg/dL; Very Low Density Lipoprotein 14 mg/dL (5-40)
== END | disposition home or self-care (01) ==
LOC: MTLAB 12:40
PROVIDERS: PCP Family Medicine; Referring Provider Nurse Practitioner Family; Visit Provider Nurse Practitioner Family
DX: E78.00 Pure hypercholesterolemia, unspecified (principal)
CPT/HCPCS: 36415; 80061; 80076

== ENCOUNTER → 2023-12-06 | Outpatient (CLI) | payer MEDICARE, SELFPAY ==
[2019-01-31 12:56] VITALS: BMI 27.8
[2023-12-06 12:32] LABS: Absolute Lymphocyte Count 1.76 X10^3/uL (0.83-4.51); Absolute Neutrophil Count 4.4 X10^3/uL (2.0-7.7); Basophil# 0.08 X10^3/uL; Basophil% 1.1 % (0-1); Eosinophil# 0.19 X10^3/uL; Eosinophils% 2.7 % (0-5); Hematocrit 48.1 % (40-54); Hemoglobin 15.2 g/dL (13.0-16.5); Lymphocyte # 1.76 X10^3/ul (0.83-4.51); Lymphocyte % 25.2 % (19-41); Mean Corp Hgb Conc 31.6 g/dL (32-36); Mean Corpuscular Hgb 29.6 pg (27.0-32.0); Mean Corpuscular Volume 93.8 fL (80-94); Mean Platelet Vol. 11.7 fl (6.2-12.0); Monocyte# 0.54 X10^3/uL; Monocyte% 7.7 % (0-10); NRBC Flagged by Analyzer 0 % (0-5); Platelet Count 190 K/mm3 (150-450); RBC Distribution Width CV 13.8 % (11.6-14.6); RBC Distribution Width SD 47.8 fl (35.1-43.9); Red Blood Count 5.13 M/mm3 (4.6-6.2)
[2023-12-06 12:52] LABS: Anion Gap 8 (5-15); BUN 24 mg/dL (7-18); BUN/Creat Ratio 14.8 RATIO (10-20); Calcium,Total 9.1 mg/dL (8.5-10.1); Chloride 105 mmol/L (98-107); Creatinine, Serum 1.62 mg/dL (0.70-1.30); EST Glomerular Filtration Rate 43 mL/min (>60); Est Glom Filt Rate - Afr Amer 52 mL/min (>60); Glucose 99 mg/dL (74-106); Potassium 3.7 mmol/L (3.5-5.1); Sodium Level 139 mmol/L (136-145)
== END | disposition home or self-care (01) ==
LOC: BFHLAB 10:30
PROVIDERS: PCP Family Medicine; Referring Provider Family Medicine; Visit Provider Family Medicine
DX: I10 Essential (primary) hypertension (principal); Z51.81 Encounter for therapeutic drug level monitoring
CPT/HCPCS: 36415; 80048; 85025

== ENCOUNTER → 2024-03-13 | Outpatient (CLI) | payer MEDICARE, SELFPAY ==
[2019-01-31 12:56] VITALS: BMI 27.8
--- NOTE | 2024-03-13 | CYSPIN_PTH ---
PATIENT: SHAZIA JJ LOC: [facility] U#:[id number] AGE/SX: 88/M ROOM: RE03/13/[address]: Dr. Rafael Dent MD : [id number] BED: DIS: 03/13/2024 SPEC #: [id number] RECD: 03/13/24 17:06 STATUS: PASCUAL DANIEL #: [id number] RAUL: 03/13/24 00:[address]: Rafael Dent DEPT: CYTOLOGY RECD BY: Jaylen Florentino ENTERED: 03/14/24 11:03 SP TYPE: CYSPIN FL OTHR DR: Dr. 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 Acute inflammation. See comment. AM.mr 03/14/2024 COMMENT The Chap[place]a System for urine cytology diagnostic categorization was used in the evaluation of this case. CYTOLOGY STUDY Slides are reviewed. CYTOLOGY GROSS Received is 35 ml of hazy-yellow fluid labeled with the patient's name and and designated per the requisition as urine. Submitted for cytology preparation. Mr 03/14/2024 TC:5 CPT: 40115
[2024-03-13 17:07] LABS: Cytology, Body Fluid / CSF SEE PATHOLOGY REPORT
== END | disposition home or self-care (01) ==
LOC: LABSPEC 16:31
PROVIDERS: PCP Family Medicine; Referring Provider Urology; Visit Provider Urology
DX: C67.2 Malignant neoplasm of lateral wall of bladder (principal)
CPT/HCPCS: 88108; 88313

== ENCOUNTER → 2024-06-02 | Outpatient (CLI) | payer MEDICARE, SELFPAY ==
[2019-01-31 12:56] VITALS: BMI 27.8
[2024-06-02 12:54] LABS: Anion Gap 6 (5-15); BUN 21 mg/dL (7-18); BUN/Creat Ratio 15.1 RATIO (10-20); Calcium,Total 9.2 mg/dL (8.5-10.1); Chloride 104 mmol/L (98-107); Creatinine, Serum 1.39 mg/dL (0.70-1.30); EST Glomerular Filtration Rate 51 mL/min (>60); Est Glom Filt Rate - Afr Amer 62 mL/min (>60); Glucose 114 mg/dL (74-106); Potassium 3.5 mmol/L (3.5-5.1); Sodium Level 138 mmol/L (136-145)
== END | disposition home or self-care (01) ==
LOC: MTLAB 10:45
PROVIDERS: PCP Family Medicine; Referring Provider Family Medicine; Visit Provider Family Medicine
DX: N17.9 Acute kidney failure, unspecified (principal)
CPT/HCPCS: 36415; 80048

== ENCOUNTER → 2024-08-08 | Outpatient (CLI) | payer MEDICARE, SELFPAY ==
[2019-01-31 12:56] VITALS: BMI 27.8
--- NOTE | 2024-08-08 09:42 | RAD_ITS ---
EXAM: XR Chest, 2 Views CLINICAL INDICATION: ADAIR TECHNIQUE: Frontal and lateral views of the chest. COMPARISON: No relevant prior studies available. FINDINGS: LUNGS AND PLEURAL SPACES: Unremarkable. No consolidation. No pneumothorax. HEART: Unremarkable. No cardiomegaly. MEDIASTINUM: Unremarkable. Normal mediastinal contour. BONES/JOINTS: Unremarkable. No acute fracture. RAD/Chest PA and Lateral IMPRESSION: No acute cardiopulmonary process. Reading Location: [facility]
[2024-08-08 10:35] LABS: Absolute Lymphocyte Count 1.78 X10^3/uL (0.83-4.51); Basophil# 0.11 X10^3/uL; Basophil% 1.6 % (0-1); Eosinophil# 0.27 X10^3/uL; Hematocrit 46.7 % (40-54); Hemoglobin 15.2 g/dL (13.0-16.5); Lymphocyte # 1.78 X10^3/ul (0.83-4.51); Lymphocyte % 26.6 % (19-41); Mean Corp Hgb Conc 32.5 g/dL (32-36); Mean Corpuscular Hgb 29.9 pg (27.0-32.0); Mean Corpuscular Volume 91.7 fL (80-94); Monocyte# 0.53 X10^3/uL; Monocyte% 7.9 % (0-10); NRBC Flagged by Analyzer 0 % (0-5); Neutrophil # 3.98 X10^3/uL (2.7-7.7); Neutrophil % 59.6 % (47-70); Platelet Count 193 K/mm3 (150-450); RBC Distribution Width SD 47.4 fl (35.1-43.9); Red Blood Count 5.09 M/mm3 (4.6-6.2); White Blood Count 6.7 K/mm3 (4.4-11.0)
[2024-08-08 11:51] LABS: Cholesterol 158 mg/dL (<=200); High Density Lipoprotein 54 mg/dL; Low Density Lipoprotein Calc. 77 mg/dL; Pro- Brain NATRIURETIC PEPTIDE 641 pg/mL (<=1800); Triglycerides 135 mg/dL; Very Low Density Lipoprotein 27 mg/dL (5-40); cholesterol:hdl ratio screen 2.93
[2024-08-08 12:02] LABS: ALB/GLOB Ratio 1.4 RATIO (0.9-2.4); AST(SGOT) 35 U/L (<=37); Alanine Aminotransfer ALT/SGPT 8 U/L (<=46); Alkaline Phosphatase 58 U/L (40-129); Anion Gap 11 (5-15); BUN 22 mg/dL (4-19); BUN/Creat Ratio 17.1 RATIO (10-20); Calcium,Total 9.5 mg/dL (7.6-11.0); Carbon Dioxide 24.6 mmol/L (21.0-32.0); Chloride 102 mmol/L (98-108); Creatinine, Serum 1.31 mg/dL (0.70-1.20); EST Glomerular Filtration Rate 53 (>60); Globulin 2.9 g/dL (2.2-4.2); Glucose 90 mg/dL (70-99); Potassium 4.5 mmol/L (3.3-5.1); Protein, Total 6.9 g/dL (5.9-8.4); Sodium Level 138 mmol/L (133-145); Total Bilirubin 0.58 mg/dL (0.00-1.30)
== END | disposition home or self-care (01) ==
LOC: RAD 09:41
PROVIDERS: PCP Family Medicine; Referring Provider Physician Assistant Medical; Visit Provider Physician Assistant Medical
DX: R06.09 Other forms of dyspnea (principal); I10 Essential (primary) hypertension; Z95.1 Presence of aortocoronary bypass graft; E78.00 Pure hypercholesterolemia, unspecified
CPT/HCPCS: 36415; 71046; 80053; 80061; 83880; 85025

== ENCOUNTER → 2025-04-18 | Outpatient (CLI) | payer MEDICARE, SELFPAY ==
[2019-01-31 12:56] VITALS: BMI 27.8
--- NOTE | 2025-04-18 15:42 | RAD_ITS ---
PROCEDURE: CHEST PA AND LATERAL 04/18/2025 REASON FOR EXAM: WHEEZING TECHNIQUE: Procedure Code: RADCXR Modality: DX Procedure: CHEST PA AND LATERAL COMPARISON: 08/08/2024 FINDINGS: No focal consolidation. Bibasilar subsegmental atelectasis. No pleural effusion or pneumothorax. Cardiac silhouette is within normal limits. No acute fractures. Median sternotomy wires. Loop recorder device noted. Evidence of prior CABG. RAD/Chest PA and Lateral IMPRESSION: No focal consolidation. Basilar subsegmental atelectasis. Reading Location: [id number]
== END | disposition home or self-care (01) ==
LOC: MTRAD 15:41
PROVIDERS: PCP Family Medicine; Referring Provider Nurse Practitioner Family; Visit Provider Nurse Practitioner Family
DX: R06.2 Wheezing (principal)
CPT/HCPCS: 71046